=== PATIENT | female | born 1940 | race Caucasian/White ===

== ENCOUNTER → 2017-08-04 12:54 | Outpatient (CLI) | payer MEDICARE, OTHER, SELFPAY ==
--- NOTE | 2017-08-04 12:57 | DI.MG.S_ITS ---
BILATERAL DIGITAL DIAGNOSTIC MAMMOGRAM: 08/04/2017 CLINICAL: Skin keratosis bilateral. Family history of breast cancer. Comparison is made to exams dated: 06/08/2016, 12/31/2013, and 07/08/2011 [facility]. The tissue of both breasts is extremely dense, which lowers the sensitivity of mammography. No significant masses, calcifications, or other findings are seen in either breast. IMPRESSION: NEGATIVE There is no abnormality seen in either breast to correspond with the area of clinical concern, however, clinical followup is recommended. The vascular ultrasound technologist spoke with the patient who states the bilateral areas of concern are skin lesions. Please evaluate with direct clinical visualization. There is no mammographic evidence of malignancy. A 1 year screening mammogram is recommended. This exam was interpreted at Station ID: [id number]. NOTE: For mammograms, a report in lay terms will be sent to the patient. Approximately 15% of breast malignancies will not be visualized mammographically. In the management of a palpable breast mass, a negative mammogram must not discourage biopsy of a clinically suspicious lesion. Electronically Signed By: Germain Naqvi M.D. cj/:08/08/2017 13:32:53 Entry: - 08/08/2017 13:32:53 letter sent: Clinical Evaluation ACR BI-RADS Category 1: Negative [id number]
== END ==
PROVIDERS: Family Provider Family Medicine; PCP Family Medicine; Visit Provider Family Medicine
DX: R92.2 Inconclusive mammogram (principal); N63.10 Unspecified lump in the right breast, unspecified quadrant; N63.20 Unspecified lump in the left breast, unspecified quadrant; L57.0 Actinic keratosis; Z80.3 Family history of malignant neoplasm of breast
CPT/HCPCS: 77066; G0279

== ENCOUNTER → 2017-09-19 14:08 | Outpatient (CLI) | payer MEDICARE, OTHER, SELFPAY ==
--- NOTE | 2017-09-19 14:09 | DI.NM.S_ITS ---
PROCEDURE: NM GREYSON PERF SPECT REST & STR Rest and exercise myocardial perfusion SPECT with gated imaging and ejection fraction RADIOPHARMACEUTICAL: 24.7 mCi Tc-99m sestamibi IV at rest and 26.8 mCi Tc-99m sestamibi IV at peak exercise. A two day-protocol was performed. INDICATIONS: exertional dyspnea, renal failure TECHNIQUE: Radiopharmaceutical was injected at peak stress test, and also at rest. SPECT images were obtained. SPECT myocardial perfusion images were displayed in short axis, horizontal long axis, and vertical long axis views. Gated images were reviewed using [employer] software. COMPARISON: None. CARDIAC STRESS: A standard [place] treadmill exercise tolerance test was performed by the patient under the supervision of an attending staff. The patient exercised for 4 minutes and 17 seconds reaching 7.0 METs; functional aerobic impairment (BECKY) is +10%. Hemodynamic data: There is normal blood pressure and heart rate response to exercise stress. Patient achieved 85% of maximum predicted heart rate at peak exercise. Symptoms: Patient denied chest pain during exercise. EKG: Resting ECG shows sinus rhythm with non-specific ST-T changes in the anterior and anterolateral leads. No diagnostic EKG changes of ischemia; no ectopy. FINDINGS: Raw data: There is good myocardial labeling by radiotracer. No significant motion artifacts. Left ventricle function: Gated images demonstrate normal left ventricle wall thickening. No segmental wall motion abnormality. No transient ischemic dilation. The left ventricle resting end-diastolic volume is 65 mL. Left ventricle stress ejection fraction is 70%; normal values are above 45%. Myocardial perfusion: Fixed severe defect at the distal anterior wall extending to apex suggestive of prior non-transmural infarction as gated images show normal apical wall motion. The fixed defects persist on prone imaging. Summed stress score is 6 and summed rest score is 5. IMPRESSION: Abnormal nuclear stress test but low risk for ischemia. 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 No ischemia noted. Summed stress score is 6 and summed rest score is 5. 2) Normal left ventricular size, wall motion, and systolic function (post stress EF 70%). 3) No ECG evidence of ischemia with stress. Resting ECG shows sinus rhythm with non-specific ST-T changes in the anterior and anterolateral leads 4) No angina during the study 5) Good exercise tolerance (7.0 METs, BECKY -10%). Target heart reached (85% of maximum predicted heart rate reached. 6) No prior nuclear stress test available for comparison Dictated by: Teresa Mart MD on 09/20/2017 at 13:08 Approved by: Teresa Mart MD on 09/20/2017 at 13:17
--- NOTE | 2017-09-19 15:25 | P.PCN_ITS ---
Cardiac Stress Test Report Referral & Results Date Patient Seen: 09/19/17 Time Patient Seen: 15:23 Requesting provider: Rosa Maria Fermin Indication: Dyspnea Rest ECG: Unremarkable Procedure Note: Today following both written and verbal informed consent the patient was exercised according to a standard [place]ordo protocol patient went for a total of for minutes 17 sec achieving a maximum heart rate of 99 (computer reported maximum was in air due to technical defect) maximum systolic blood pressure of 132. This is approximately 7.0 METS. Exercise was terminated at this point because of inability the patient to continue. Patient was also given Cardiolite through a previously started Hep-Lock IV by the nuclear process engineer approximately 1 minute prior to the cessation of exercise. Patient failed to me heart rate and/or heart rate/blood pressure targets. In recovery she developed inferred T-wave in leads V5 and V6 as well as maybe some reciprocal ST segment changes in inferior leads. There was minor ST segment drooping or depression in leads V5 and V6 as well. This was all asymptomatic and recovered within 2 min of recovery Functional aerobic impairment rated-15% on the sedentary scale or better than average Impression: No clear evidence of ischemia. Above ST segment changes of certainly suspicious but not diagnostic of same. Await perfusion imaging which will be reported separately. Given inability of patient to reach heart rate and /or blood pressure targets depending on results of perfusion imaging may need repeat evaluation with Lexiscan to be more confluent of a negative result. Clinical correlation suggested. Please note: Actual ECG tracings can be found in the PACS system.
== END ==
PROVIDERS: Family Provider Family Medicine; PCP Family Medicine; Visit Provider Family Medicine
DX: R06.09 Other forms of dyspnea (principal); N19 Unspecified kidney failure
CPT/HCPCS: 78452; 93016; 93017; 93018; A9502

== ENCOUNTER → 2017-10-10 13:45 | Outpatient (CLI) | payer MEDICARE, OTHER, SELFPAY ==
--- NOTE | 2017-10-10 | DI.ECHO.S_ITS ---
[place] [facility]---------+ [facility] +---------+ : : [address] : : : : [id number] : : : : Phone: [phone] Echocardiogram Report + + :Name: KIRTI EDWARDS Study Date: 10/10/2017 Height: 61 in : :[facility] Weight: 108 lb : : Gender: Female BSA: 1.5 m2 : :: 1940 Age: 77 yrs BP: 100/58 mmHg: :Reason For Study: Dyspnea : :Ordering Physician: Evette Miller : :Karen Performed By: Yoselin Patel : :Referring: Rosa Maria Fermin : + + Interpretation Summary 1. Normal left ventricular size, wall thickness and systolic function with wall motion abnormalities as noted. EF is estimated at 60-65% 2. Normal right ventricular size with grossly normal systolic function. Unable to estimate RVSP. The estimated right atrial pressure is low. 3. No evidence for significant valvular pathology There is no old study available for review Procedure: A two-dimensional transthoracic echocardiogram with color flow and Doppler was performed. The study quality was technically adequate. Comparison is made with the echocardiogram of 07-03-15. The patient was in normal sinus rhythm during the exam. Left Ventricle: The left ventricle is normal in size. There is normal left ventricular wall thickness. The ejection fraction is estimated to be 60-65%. Hypokinesis of the apical septal segments and the apical anterior wall. Diastolic function could not be accurately assessed due to unobtainable data. Right Ventricle: The right ventricle is normal size. Grossly normal systolic function. Atria: The left atrial size is normal. Right atrial size is normal. No color doppler evidence for an ASD. Mitral Valve: The mitral valve leaflets appear borderline thickened, but open well. There is trace mitral regurgitation. Aortic Valve: The aortic valve opens well. No doppler evidence for aortic stenosis. There is trace aortic regurgitation. Tricuspid Valve: The tricuspid valve leaflets are thin and pliable. No tricuspid regurgitation. Pulmonic Valve: The pulmonic valve is not well seen, but is grossly normal. There is mild pulmonic regurgitation. Great Vessels: The aortic root is normal size. The dimensions of the ascending aorta are normal. The IVC is of normal diameter and collapses greater than 50% with a sniff. This suggests a low right atrial pressure of 3 mm Hg. Pericardium/ Pleura There is no pericardial effusion. There is no pleural effusion. MMode/2D Measurements & Calculations LVIDd: 4.4 cm Ao root diam: 3.3 cm LVIDs: 2.5 cm Aortic Jxn: 2.4 cm FS: 42.6 % asc Aorta Diam: 3.0 cm EPSS: 0.88 cm Ao Arch Diam (Prox Trans): 2.7 cm IVSd: 1.1 cm LVPWd: 0.79 cm LV ge. diameter/BSA (cm/m^2): 3.0 LV sys. diameter/BSA (cm/m^2): 1.7 LA dimension: 3.3 cm RA long axis: 3.7 cm LA A2 area: 14.1 cm2 RA area: 10.0 cm2 LA A4 area: 16.2 cm2 RA vol: 22.9 ml LA length (vol): 4.6 cm RA : 15.8 ml/m2 LA vol: 42.8 ml IVC diam: 1.0 cm LA vol index: 29.4 ml/m2 RVDd major: 4.6 cm RVD1 (basal): 2.5 cm RVD2 (mid): 2.1 cm Doppler Measurements & Calculations Ao V2 max: 104.6 cm/sec MV E max dionicio: 80.2 cm/sec Ao V2 mean: 69.2 cm/sec MV A max dionicio: 99.6 cm/sec Ao max P.4 mmHg MV E/A: 0.81 Ao mean P.3 mmHg Med Peak E' Dionicio: 3.6 cm/sec Ao V2 VTI: 23.4 cm E/E' med: 22.4 Lat Peak E' Dionicio: 5.3 cm/sec E/E' lat: 15.2 E/e' average: 18.8 MV dec time: 0.18 sec MV P1/2t: 52.6 msec PA V2 max: 83.0 cm/sec MV P1/2t max dionicio: 78.9 cm/sec PA V2 mean: 53.2 cm/sec MVA(P1/2t): 4.2 cm2 PA mean P.4 mmHg PA Accel Time: 0.17 sec Reading Physician:PM
== END ==
PROVIDERS: Family Provider Family Medicine; PCP Family Medicine; Visit Provider Internal Medicine
DX: R06.09 Other forms of dyspnea (principal)
CPT/HCPCS: 93306

== ENCOUNTER → 2017-10-11 11:44 | Outpatient (CLI) | payer MEDICARE, OTHER, SELFPAY ==
--- NOTE | 2017-10-14 17:49 | PM.PFT.1 ---
Pulmonary Function Test Referral & Results Date Patient Seen: 10/11/17 Requesting provider: Lachelle Jones Results: The spirometry demonstrates an FVC of 2.47 L which is 106% of predicted. The FEV1 was measured at 1.92 L which is 112% of predicted. The FEV1/FVC ratio was 78 which is 105% of predicted. Following the administration of bronchodilator there was no appreciable change in above normal numbers. Lung volumes show an SVC of 2.55 L which is 106% of predicted. The diffusing capacity was measured at 13.4 for which is 66% of predicted. No hemoglobin value was provided, so no correction for potential anemia could be made, if appropriate. The maximum voluntary ventilation was reduced. Interpretation: This study demonstrates normal spirometry and reduced diffusing capacity. Compared to PFTs performed in June 2015, there has been a reduction in diffusing capacity which was previously at 15.95 or 70% of predicted currently only 66% of predicted. Clinical correlation suggested.
== END ==
PROVIDERS: PCP Family Medicine; Visit Provider Internal Medicine
DX: R06.02 Shortness of breath (principal)
CPT/HCPCS: 94010; 94060; 94726; 94729

== ENCOUNTER → 2017-12-26 10:17 | Outpatient (CLI) | payer MEDICARE, OTHER, SELFPAY ==
[2017-12-26 12:17] LABS: BUN Creatinine Ratio 12.4 (6-22); Blood Urea Nitrogen 26 mg/dL (7-17); Calcium 9.3 mg/dL (8.4-10.2); Carbon Dioxide 25 mmol/L (22-32); Chloride 113 mmol/L (98-107); Estimated Glomerular Filt Rate 22.8 mL/min (>60); Glucose 79 mg/dL (80-110); HEMOLYSIS < 15 (0-50); Potassium 4.9 mmol/L (3.4-5.1); Sodium 147 mmol/L (137-145)
== END ==
PROVIDERS: PCP Internal Medicine; Visit Provider Internal Medicine Nephrology
DX: N05.9 Unspecified nephritic syndrome with unspecified morphologic changes (principal)
CPT/HCPCS: 36415; 80048

== ENCOUNTER → 2018-01-30 08:59 | Outpatient (CLI) | payer MEDICARE, OTHER, SELFPAY ==
[2018-01-30 11:24] LABS: BUN Creatinine Ratio 13.6 (6-22); Blood Urea Nitrogen 34 mg/dL (7-17); Calcium 9.3 mg/dL (8.4-10.2); Carbon Dioxide 26 mmol/L (22-32); Chloride 110 mmol/L (98-107); Estimated Glomerular Filt Rate 18.6 mL/min (>60); Glucose 88 mg/dL (80-110); HEMOLYSIS < 15 (0-50); Potassium 4.5 mmol/L (3.4-5.1); Sodium 148 mmol/L (137-145)
== END ==
PROVIDERS: PCP Internal Medicine; Visit Provider Internal Medicine Nephrology
DX: N05.9 Unspecified nephritic syndrome with unspecified morphologic changes (principal); I50.32 Chronic diastolic (congestive) heart failure
CPT/HCPCS: 36415; 80048; 83880

== ENCOUNTER → 2018-04-03 10:34 | Outpatient (CLI) | payer MEDICARE, OTHER, SELFPAY ==
[2018-04-03 11:20] LABS: Add Manual Diff / Slide Review NO; Basophils Absolute Auto 0 /uL (0-100); Basophils Percent Auto 0.6 % (0-2); Eosinophils Absolute Auto 200 /uL (0-450); Eosinophils Percent Auto 4.7 % (2-4); Hematocrit 35.7 % (36-46); Hemoglobin 11.9 g/dL (12.0-16.0); Lymphocytes Absolute Auto 1000 /uL (1100-4500); Lymphocytes Percent Auto 25.3 % (25-40); Mean Corpuscular HGB Conc 33.4 % (30-36); Mean Corpuscular Hemoglobin 33.8 PG (26-34); Monocytes Absolute Auto 400 /uL (0-900); Monocytes Percent Auto 10.6 % (3-14); Neutrophils Absolute Auto 2300 /uL (1500-7000); Neutrophils Percent Auto 58.8 % (50-75); Platelet Count 232 X10^3/uL (150-400); Red Blood Cell Count 3.54 X10^6/uL (4.0-5.2); Red Cell Distribution Width 13.2 % (11.6-14.8); White Blood Cell Count 3.9 X10^3/uL (4.5-11.0)
[2018-04-03 11:41] LABS: BUN Creatinine Ratio 12.4 (6-22); Blood Urea Nitrogen 31 mg/dL (7-17); Calcium 9.3 mg/dL (8.4-10.2); Carbon Dioxide 26 mmol/L (22-32); Chloride 108 mmol/L (98-107); Estimated Glomerular Filt Rate 18.6 mL/min (>60); Glucose 58 mg/dL (80-110); HEMOLYSIS < 15 (0-50); Phosphorous 4.9 mg/dL (2.8-4.1); Potassium 4.7 mmol/L (3.4-5.1); Sodium 144 mmol/L (137-145)
[2018-04-03 14:29] LABS: B Type Natriuretic Peptide 154 (<100)
[2018-04-05 15:39] LABS: Parathyroid Hormone Int 79 pg/mL (14-64)
== END ==
PROVIDERS: PCP Family Medicine; Visit Provider Internal Medicine Nephrology
DX: N05.9 Unspecified nephritic syndrome with unspecified morphologic changes (principal); I50.32 Chronic diastolic (congestive) heart failure; D70.9 Neutropenia, unspecified; D63.1 Anemia in chronic kidney disease; E83.30 Disorder of phosphorus metabolism, unspecified; N25.81 Secondary hyperparathyroidism of renal origin
CPT/HCPCS: 36415; 80048; 83880; 83970; 84100; 85025

== ENCOUNTER → 2018-04-19 14:45 | Outpatient (CLI) | payer MEDICARE, OTHER, SELFPAY ==
[2018-04-19 16:33] LABS: Adenovirus F 40/41 Not Detected (Not Detect); Astrovirus Not Detected (Not Detect); Campylobacter Not Detected (Not Detect); Clostridium difficile toxin AB Detected (Not Detect); Cryptosporidium Not Detected (Not Detect); Cyclospora cayetanensis Not Detected (Not Detect); Entamoeba histolytica Not Detected (Not Detect); Enteroaggregative E.coli Not Detected (Not Detect); Enteropathogenic E.coli Not Detected (Not Detect); Enterotoxigenic E.coli It/st Not Detected (Not Detect); Giardia lamblia Not Detected (Not Detect); Norovirus GI/GII Not Detected (Not Detect); Plesiomonsa shigelloides Not Detected (Not Detect); Rotavirus A Not Detected (Not Detect); Salmonella Not Detected (Not Detect); Shiga-like toxin-prod E.coli Not Detected (Not Detect); Shigella/Enteroinvasive E.coli Not Detected (Not Detect); Vibrio Not Detected (Not Detect); Vibrio cholerae Not Detected (Not Detect); Yersinia enterocolitica Not Detected (Not Detect)
== END ==
PROVIDERS: PCP Family Medicine
DX: R19.7 Diarrhea, unspecified (principal)
CPT/HCPCS: 87507

== ENCOUNTER → 2018-06-14 12:14 | Outpatient (CLI) | payer MEDICARE, OTHER, SELFPAY ==
[2018-06-14 14:56] LABS: Clostridium Difficile Tox PCR Positive for C. diff
== END ==
PROVIDERS: PCP Family Medicine; Visit Provider Physician Assistant
DX: R19.7 Diarrhea, unspecified (principal)
CPT/HCPCS: 87493

== ENCOUNTER → 2018-06-26 09:22 | Outpatient (CLI) | payer MEDICARE, OTHER, SELFPAY ==
[2018-06-26 10:38] LABS: Blood Urea Nitrogen 30 mg/dL (7-17); Calcium 9.1 mg/dL (8.4-10.2); Carbon Dioxide 26 mmol/L (22-32); Chloride 107 mmol/L (98-107); Estimated Glomerular Filt Rate 20.5 mL/min (>60); Glucose 85 mg/dL (80-110); HEMOLYSIS < 15 (0-50); Potassium 4.8 mmol/L (3.4-5.1); Sodium 143 mmol/L (137-145)
[2018-06-26 12:02] LABS: Sodium Urine Random 35 mmol/L (30-90)
== END ==
PROVIDERS: PCP Family Medicine; Visit Provider Internal Medicine Nephrology
DX: N05.9 Unspecified nephritic syndrome with unspecified morphologic changes (principal); E87.1 Hypo-osmolality and hyponatremia
CPT/HCPCS: 36415; 80048; 84300

== ENCOUNTER → 2018-06-28 15:10 | Outpatient (CLI) | payer MEDICARE, OTHER, SELFPAY ==
[2018-06-28 20:01] LABS: Clostridium Difficile Tox PCR Negative for C. diff
== END ==
PROVIDERS: PCP Family Medicine; Visit Provider Physician Assistant
DX: R19.7 Diarrhea, unspecified (principal); A04.72 Enterocolitis due to Clostridium difficile, not specified as recurrent
CPT/HCPCS: 87493

== ENCOUNTER → 2018-07-08 08:20 | Outpatient (CLI) | payer MEDICARE, OTHER, SELFPAY ==
[2018-07-08 10:55] LABS: BUN Creatinine Ratio 16.2 (6-22); Blood Urea Nitrogen 47 mg/dL (7-17); Calcium 9.9 mg/dL (8.4-10.2); Carbon Dioxide 26 mmol/L (22-32); Chloride 103 mmol/L (98-107); Estimated Glomerular Filt Rate 15.7 mL/min (>60); Glucose 92 mg/dL (80-110); HEMOLYSIS < 15 (0-50); Potassium 4.8 mmol/L (3.4-5.1); Sodium 143 mmol/L (137-145)
[2018-07-08 11:05] LABS: B Type Natriuretic Peptide 165 (<100)
== END ==
PROVIDERS: PCP Family Medicine; Visit Provider Internal Medicine Nephrology
DX: N05.9 Unspecified nephritic syndrome with unspecified morphologic changes (principal); I50.32 Chronic diastolic (congestive) heart failure
CPT/HCPCS: 36415; 80048; 83880

== ENCOUNTER → 2018-07-18 11:21 | Outpatient (CLI) | payer MEDICARE, OTHER, SELFPAY ==
--- NOTE | 2018-07-18 11:26 | DI.RAD.S_ITS ---
PROCEDURE: XR CHEST 2V INDICATIONS: Shortness of breath TECHNIQUE: 2 views of the chest were acquired. COMPARISON: [facility], CR, CHEST 2 VIEW, 06/18/2015, 15:59. [facility], CT, CT CHEST HIGH RESOLUTION WO CONTRAST, 01/06/2016, 1:35 PM. [facility], , CHEST 2 VIEW, 10/31/2015, 13:55. FINDINGS: Surgical changes and devices: None. Lungs and pleura: Hyperinflation consistent with COPD. There is a left diaphragmatic eventration, which appears unchanged. No pleural effusions or pneumothorax. Mediastinum: Mediastinal contours are normal. Heart size is normal. Bones and chest wall: No suspicious bony abnormalities. Soft tissues appear unremarkable. IMPRESSION: 1. Hyperinflation consistent with COPD. 2. Stable left diaphragmatic hernia. Dictated by: Dean Sen M.D. on 07/18/2018 at 13:01 Approved by: Dean Sen M.D. on 07/18/2018 at 13:09
[2018-07-18 12:16] LABS: Add Manual Diff / Slide Review NO; Basophils Absolute Auto 0 /uL (0-100); Basophils Percent Auto 0.6 % (0-2); Eosinophils Absolute Auto 100 /uL (0-450); Eosinophils Percent Auto 2.6 % (2-4); Hematocrit 39.1 % (36-46); Hemoglobin 13.2 g/dL (12.0-16.0); Lymphocytes Absolute Auto 1400 /uL (1100-4500); Lymphocytes Percent Auto 30.7 % (25-40); Mean Corpuscular HGB Conc 33.8 % (30-36); Mean Corpuscular Hemoglobin 33.3 PG (26-34); Mean Corpuscular Volume 98.3 fL (80-100); Monocytes Absolute Auto 500 /uL (0-900); Neutrophils Absolute Auto 2400 /uL (1500-7000); Neutrophils Percent Auto 54.1 % (50-75); Platelet Count 297 X10^3/uL (150-400); Red Blood Cell Count 3.98 X10^6/uL (4.0-5.2); Red Cell Distribution Width 12.8 % (11.6-14.8); White Blood Cell Count 4.4 X10^3/uL (4.5-11.0)
[2018-07-18 12:29] LABS: Alanine Aminotransferase 34 IU/L (9-52); Albumin Globulin Ratio 1.4 (1.0-2.8); Alkaline Phosphatase 106 U/L (38-126); Aspartate Aminotransferase 48 IU/L (14-36); BUN Creatinine Ratio 19.7 (6-22); Bilirubin Total 0.4 mg/dL (0.2-1.3); Blood Urea Nitrogen 71 mg/dL (7-17); Calcium 10.2 mg/dL (8.4-10.2); Carbon Dioxide 28 mmol/L (22-32); Chloride 95 mmol/L (98-107); Estimated Glomerular Filt Rate 12.2 mL/min (>60); Globulin 3.5 g/dL (1.7-4.1); Glucose 99 mg/dL (80-110); HEMOLYSIS < 15 (0-50); Sodium 140 mmol/L (137-145); Total Protein 8.5 g/dL (6.3-8.2)
[2018-07-18 12:36] LABS: B Type Natriuretic Peptide 189 (<100)
== END ==
PROVIDERS: PCP Family Medicine; Visit Provider Family Medicine
DX: R06.02 Shortness of breath (principal); N18.4 Chronic kidney disease, stage 4 (severe); N25.89 Other disorders resulting from impaired renal tubular function; R42 Dizziness and giddiness
CPT/HCPCS: 36415; 71046; 80053; 83880; 85025

== ENCOUNTER → 2018-08-07 09:19 | Outpatient (CLI) | payer MEDICARE, OTHER, SELFPAY ==
[2018-08-07 10:32] LABS: Add Manual Diff / Slide Review NO; Basophils Absolute Auto 0 /uL (0-100); Eosinophils Absolute Auto 200 /uL (0-450); Eosinophils Percent Auto 5.1 % (2-4); Hemoglobin 12.1 g/dL (12.0-16.0); Lymphocytes Absolute Auto 1100 /uL (1100-4500); Lymphocytes Percent Auto 31.9 % (25-40); Mean Corpuscular HGB Conc 33.6 % (30-36); Mean Corpuscular Hemoglobin 33.4 PG (26-34); Mean Corpuscular Volume 99.3 fL (80-100); Monocytes Absolute Auto 400 /uL (0-900); Neutrophils Absolute Auto 1800 /uL (1500-7000); Platelet Count 265 X10^3/uL (150-400); Red Blood Cell Count 3.62 X10^6/uL (4.0-5.2); Red Cell Distribution Width 13.4 % (11.6-14.8); White Blood Cell Count 3.4 X10^3/uL (4.5-11.0)
[2018-08-07 10:55] LABS: B Type Natriuretic Peptide 184 (<100)
[2018-08-07 10:56] LABS: BUN Creatinine Ratio 18.1 (6-22); Blood Urea Nitrogen 38 mg/dL (7-17); Calcium 9.5 mg/dL (8.4-10.2); Carbon Dioxide 21 mmol/L (22-32); Chloride 109 mmol/L (98-107); Estimated Glomerular Filt Rate 22.7 mL/min (>60); Glucose 83 mg/dL (80-110); HEMOLYSIS < 15 (0-50); Potassium 4.5 mmol/L (3.4-5.1); Sodium 141 mmol/L (137-145)
== END ==
PROVIDERS: PCP Family Medicine; Visit Provider Internal Medicine Nephrology
DX: N05.9 Unspecified nephritic syndrome with unspecified morphologic changes (principal); I50.32 Chronic diastolic (congestive) heart failure; D70.9 Neutropenia, unspecified; D63.1 Anemia in chronic kidney disease
CPT/HCPCS: 36415; 80048; 83880; 85025

== ENCOUNTER → 2018-09-05 11:11 | Outpatient (CLI) | payer MEDICARE, OTHER, SELFPAY ==
[2018-09-05 12:05] LABS: Add Manual Diff / Slide Review NO; Basophils Absolute Auto 0 /uL (0-100); Basophils Percent Auto 0.4 % (0-2); Eosinophils Absolute Auto 100 /uL (0-450); Eosinophils Percent Auto 3.1 % (2-4); Hematocrit 34.9 % (36-46); Hemoglobin 11.6 g/dL (12.0-16.0); Lymphocytes Absolute Auto 1000 /uL (1100-4500); Lymphocytes Percent Auto 26.1 % (25-40); Mean Corpuscular HGB Conc 33.3 % (30-36); Mean Corpuscular Hemoglobin 33.4 PG (26-34); Mean Corpuscular Volume 100.3 fL (80-100); Monocytes Absolute Auto 300 /uL (0-900); Monocytes Percent Auto 8.5 % (3-14); Neutrophils Absolute Auto 2300 /uL (1500-7000); Neutrophils Percent Auto 61.9 % (50-75); Platelet Count 225 X10^3/uL (150-400); Red Blood Cell Count 3.48 X10^6/uL (4.0-5.2); Red Cell Distribution Width 13.7 % (11.6-14.8); White Blood Cell Count 3.7 X10^3/uL (4.5-11.0)
[2018-09-05 12:31] LABS: BUN Creatinine Ratio 13.8 (6-22); Blood Urea Nitrogen 29 mg/dL (7-17); Calcium 9.3 mg/dL (8.4-10.2); Carbon Dioxide 21 mmol/L (22-32); Chloride 114 mmol/L (98-107); Estimated Glomerular Filt Rate 22.7 mL/min (>60); Glucose 85 mg/dL (80-110); HEMOLYSIS < 15 (0-50); Potassium 4.6 mmol/L (3.4-5.1); Sodium 143 mmol/L (137-145)
== END ==
PROVIDERS: PCP Family Medicine; Visit Provider Internal Medicine Nephrology
DX: N05.9 Unspecified nephritic syndrome with unspecified morphologic changes (principal); D70.9 Neutropenia, unspecified; D63.1 Anemia in chronic kidney disease
CPT/HCPCS: 36415; 80048; 85025

== ENCOUNTER → 2018-10-05 09:03 | Outpatient (CLI) | payer MEDICARE, OTHER, SELFPAY ==
[2018-10-05 09:32] LABS: Add Manual Diff / Slide Review NO; Basophils Absolute Auto 0 /uL (0-100); Basophils Percent Auto 0.9 % (0-2); Eosinophils Absolute Auto 200 /uL (0-450); Eosinophils Percent Auto 6.1 % (2-4); Hematocrit 36.1 % (36-46); Hemoglobin 11.9 g/dL (12.0-16.0); Lymphocytes Absolute Auto 1300 /uL (1100-4500); Lymphocytes Percent Auto 32.4 % (25-40); Mean Corpuscular Hemoglobin 33.4 PG (26-34); Mean Corpuscular Volume 101.2 fL (80-100); Monocytes Absolute Auto 400 /uL (0-900); Monocytes Percent Auto 10.5 % (3-14); Neutrophils Absolute Auto 2000 /uL (1500-7000); Neutrophils Percent Auto 50.1 % (50-75); Platelet Count 226 X10^3/uL (150-400); Red Blood Cell Count 3.56 X10^6/uL (4.0-5.2); Red Cell Distribution Width 13.6 % (11.6-14.8); White Blood Cell Count 3.9 X10^3/uL (4.5-11.0)
[2018-10-05 10:10] LABS: BUN Creatinine Ratio 15.6 (6-22); Blood Urea Nitrogen 28 mg/dL (7-17); Calcium 9.2 mg/dL (8.4-10.2); Carbon Dioxide 21 mmol/L (22-32); Chloride 114 mmol/L (98-107); Estimated Glomerular Filt Rate 27.1 mL/min (>60); Glucose 91 mg/dL (80-110); HEMOLYSIS < 15 (0-50); Potassium 4.8 mmol/L (3.4-5.1); Sodium 141 mmol/L (137-145)
== END ==
PROVIDERS: PCP Family Medicine; Visit Provider Internal Medicine Nephrology
DX: N05.9 Unspecified nephritic syndrome with unspecified morphologic changes (principal); D70.9 Neutropenia, unspecified; D63.1 Anemia in chronic kidney disease
CPT/HCPCS: 36415; 80048; 85025

== ENCOUNTER → 2018-10-27 11:12 | Outpatient (CLI) | payer MEDICARE, OTHER, SELFPAY ==
[2018-10-27 11:58] LABS: Add Manual Diff / Slide Review NO; Basophils Absolute Auto 0 /uL (0-100); Basophils Percent Auto 0.9 % (0-2); Eosinophils Absolute Auto 200 /uL (0-450); Eosinophils Percent Auto 3.7 % (2-4); Hematocrit 36.1 % (36-46); Hemoglobin 12.2 g/dL (12.0-16.0); Lymphocytes Absolute Auto 1100 /uL (1100-4500); Lymphocytes Percent Auto 27.2 % (25-40); Mean Corpuscular HGB Conc 33.8 % (30-36); Mean Corpuscular Hemoglobin 33.6 PG (26-34); Mean Corpuscular Volume 99.7 fL (80-100); Monocytes Absolute Auto 400 /uL (0-900); Monocytes Percent Auto 10.4 % (3-14); Neutrophils Absolute Auto 2400 /uL (1500-7000); Neutrophils Percent Auto 57.8 % (50-75); Platelet Count 228 X10^3/uL (150-400); Red Blood Cell Count 3.62 X10^6/uL (4.0-5.2); Red Cell Distribution Width 13.5 % (11.6-14.8); White Blood Cell Count 4.2 X10^3/uL (4.5-11.0)
[2018-10-27 12:13] LABS: BUN Creatinine Ratio 22.1 (6-22); Blood Urea Nitrogen 42 mg/dL (7-17); Calcium 9.7 mg/dL (8.4-10.2); Carbon Dioxide 23 mmol/L (22-32); Chloride 112 mmol/L (98-107); Estimated Glomerular Filt Rate 25.5 mL/min (>60); Glucose 88 mg/dL (80-110); HEMOLYSIS < 15 (0-50); Potassium 4.9 mmol/L (3.4-5.1); Sodium 145 mmol/L (137-145)
== END ==
PROVIDERS: Family Provider Family Medicine; PCP Family Medicine; Visit Provider Internal Medicine Nephrology
DX: N05.9 Unspecified nephritic syndrome with unspecified morphologic changes (principal); D70.9 Neutropenia, unspecified; D63.1 Anemia in chronic kidney disease
CPT/HCPCS: 36415; 80048; 85025

== ENCOUNTER → 2018-11-03 08:04 | Outpatient (CLI) | payer MEDICARE, OTHER, SELFPAY ==
[2018-11-03 08:57] LABS: Cholesterol 218 mg/dL (140-199); HDL Cholesterol 54 mg/dL (40-60); LDL Cholesterol Calculated 143 mg/dL (<100); Triglycerides 105 mg/dL (35-150)
== END ==
PROVIDERS: Family Provider Family Medicine; PCP Family Medicine; Visit Provider Internal Medicine
DX: I25.2 Old myocardial infarction (principal)
CPT/HCPCS: 36415; 80061

== ENCOUNTER → 2018-11-17 13:36 | Outpatient (CLI) | payer MEDICARE, OTHER, SELFPAY ==
[2018-11-17 15:05] LABS: Clostridium Difficile Tox PCR Positive for C. diff
== END ==
PROVIDERS: PCP Family Medicine; Visit Provider Family Medicine
DX: R19.7 Diarrhea, unspecified (principal)
CPT/HCPCS: 87493

== ENCOUNTER 2018-11-24 05:34 | Observation (INO) | payer MEDICARE, OTHER, SELFPAY ==
[2018-11-24] VITALS (7 sets, daily range): BP systolic 101–120; BP diastolic 48–61; PULSE 68–90; RESP 15–20; TEMP 36.3–36.6; O2SAT 93–100; BMI 20.2
--- NOTE | 2018-11-24 05:40 | DI.RAD.S_ITS ---
PROCEDURE: XR PELVIS 1-2V INDICATIONS: fall with hip pain TECHNIQUE: 2 view(s) of the pelvis acquired. COMPARISON: [facility], , PELVIS WITH BILATERAL HIPS, 06/08/2014, 11:31. FINDINGS: Bones: There is linear lucency through the left inferior pubic ramus and linear sclerosis, possibly representing a nondisplaced fracture. Degenerative changes of the bilateral hip joints. Remainder of the osseous structures appear intact the radiographic evaluation. No suspicious intraosseous lesions. Lower lumbar spondylosis. Symmetric alignment of the bilateral sacroiliac joints. No pubic symphysis diastases. Soft tissues: Visualized bowel gas pattern is normal. No suspicious soft tissue calcifications. IMPRESSION: Possible nondisplaced left inferior pubic ramus fracture. No definite femur fracture is identified. Recommend further characterization with CT/MRI to confirm/evaluate. Dictated by: Grupo Cisneros M.D. on 11/24/2018 at 8:36 Approved by: Grupo Cisneros M.D. on 11/24/2018 at 8:40
--- NOTE | 2018-11-24 05:44 | ED.FALL ---
HPI - Fall General Chief Complaint: Extremity Injury, Lower Stated Complaint: GLF Time Seen by Provider: 11/24/18 05:34 Source: patient and EMS Mode of arrival: EMS Limitations: no limitations History of Present Illness HPI Narrative: 78-year-old female smoker with extensive medical history including end-stage renal disease and COPD presents with a chief complaint of a mechanical fall in which she fell onto her left hip suffering pain. Her pain is worse with motion and improves with rest. She denies numbness, tingling or weakness. There is no obvious deformity such as shortening or external rotation. She denies other injuries such as head, neck or back pain. She denies any definite prodromal symptoms. Last week she was re-diagnosed with C diff. Her PCP is Dr. Billingsley and she was set to have an appointment to discuss the plan later today MD complaint: fall Onset (ago): minute(s) Fall from: standing Fall witnessed: no Place fall occurred: home Loss of consciousness: none Prolonged down time: no Symptoms prior to fall: none Context: tripped/slipped Severity: moderate Quality: aching Associated symptoms (after fall): unable to walk Related Data Home Medications Medication Instructions Recorded Confirmed omega-3 fatty acids 1,000 mg 1,000 mg PO DAILY 11/18/17 11/24/18 capsule Respironics [employer] Auto CPAP #1 ea 04/21/18 11/24/18 acetaminophen 500 mg tablet 500 mg PO QID PRN 07/18/18 11/24/18 albuterol sulfate 90 mcg/actuation 1 puff INHALATION Q6H PRN 07/18/18 11/24/18 aerosol inhaler aspirin 81 mg tablet,delayed 81 mg PO DAILY 07/18/18 11/24/18 release psyllium husk 0.52 gram capsule 0.52 gram PO DAILY 07/18/18 11/24/18 furosemide 20 mg tablet 20 mg PO DAILY tab 07/26/18 11/24/18 atorvastatin 40 mg PO DAILY 11/24/18 11/24/18 hydroxychloroquine 200 mg PO BEDTIME 11/24/18 11/24/18 lorazepam 0.5 mg PO BEDTIME 11/24/18 11/24/18 sertraline 200 mg PO BEDTIME 11/24/18 11/24/18 Allergies Allergy/AdvReac Type Severity Reaction Status Date / Time Penicillins [PENICILLINS] Allergy Severe hives Verified 11/24/18 06:39 Sulfa (Sulfonamide Allergy Severe hives Verified 11/24/18 06:39 Antibiotics) [SULFA (SULFONAMIDE ANTIBIOTICS)] codeine [CODEINE] AdvReac Mild difficulty Verified 11/24/18 06:39 sleeping Review of Systems Constitutional Constitutional: Denies chills, Denies fatigue, Denies fever(s), Denies frequent falls, Denies lethargy and Denies weakness Eyes Eyes: Denies change in vision, Denies eye discharge, Denies irritation and Denies loss of vision ENT Ears, Nose, Mouth, and Throat: Denies change in voice, Denies dizziness, Denies neck pain, Denies sore throat and Denies throat swelling Cardiovascular Cardiovascular: Denies chest pain, Denies irregular heart rhythm, Denies lightheadedness, Denies palpitations, Denies dyspnea, Denies dyspnea on exertion and Denies orthopnea Respiratory Respiratory: Denies cough, Denies dyspnea, Denies dyspnea on exertion and Denies wheezing Gastrointestinal Gastrointestinal: Denies abdominal pain, Denies change in bowel habits, Denies diarrhea, Denies nausea and Denies vomiting Genitourinary Genitourinary: Denies hematuria, Denies flank pain, Denies urinary incontinence and Denies urinary urgency Musculoskeletal Musculoskeletal: Denies back pain, Reports limited range of motion, Denies muscle weakness, Denies neck pain, Denies numbness and Denies tingling Integumentary/Breasts Skin/Breast: Denies pruritus, Denies erythema, Denies rash and Denies wounds Neurologic Neurologic: Denies behavioral changes, Denies confusion, Denies dizziness, Denies frequent falls, Denies loss of vision, Denies numbness, Denies tingling and Denies weakness Psychiatric Psychiatric: Denies anxiety, Denies behavioral changes, Denies confusion, Denies depression, Denies homicidal ideation and Denies suicidal ideation Endocrine Endocrine: Denies fatigue, Denies flushing and Denies palpitations Hematologic/Lymphatic Hematologic/Lymphatic: Denies easy bruising Allergic/Immunologic Allergic/Immunologic: Denies urticaria, Denies throat swelling and Denies wheezing Exam Narrative Exam Narrative: GENERAL: [78] year old patient appears older than stated age. Chronically ill, thin and malnourished. Obviously in pain HEAD: Atraumatic. Normocephalic. EYES: Pupils equal round and reactive. Extraocular motions intact. No scleral icterus. No injection or drainage. ENT: Nose without bleeding, purulent drainage. Throat without erythema, tonsillar hypertrophy or exudate. Airway patent. NECK: Trachea midline. Non tender CARDIOVASCULAR: Regular rate and rhythm without murmurs, gallops, or rubs. RESPIRATORY: Clear to auscultation. Breath sounds equal bilaterally. No wheezes, rales, or rhonchi. GASTROINTESTINAL: Abdomen soft, non-tender, nondistended. EXTREMITIES: No edema or joint tenderness. No shortening or external rotation. Tender to palpation but surprisingly good range of motion and little pain with axial loading BACK: Nontender without deformity or crepitance. No flank tenderness. NEURO: AOx3. SKIN: No rash or erythema of visible areas Initial Vital Signs Initial Vital Signs: Vital Signs Pulse Rate 72 11/24/18 05:46 Respiratory Rate 18 11/24/18 05:46 Blood Pressure 111/60 11/24/18 05:46 Pulse Oximetry 98 11/24/18 05:46 [facility] Medical History Allergic rhinitis, cause unspecified (Chronic 05/18/04) Anemia, unspecified (Chronic 04/20/04) Anxiety (Chronic) Arthralgia (Chronic 07/22/04) CAD (coronary artery disease) (Chronic) Chronic sinusitis, unspecified (Chronic 05/27/04) Depression (Chronic) Dry eye syndrome (Chronic 08/12/04) Fibromyalgia affecting multiple sites (Chronic) History of renal stone (Resolved) Low ferritin level (Chronic 09/05/14) Osteopenia (Chronic 04/20/04) Raynauds syndrome (Chronic) Renal osteodystrophy (Chronic) Renal tubular acidosis (Chronic) Restless leg syndrome (Chronic) Sjoegren syndrome (Chronic) Sleep apnea (Chronic) Stage 4 chronic kidney disease (Chronic) TMJ dysfunction (Chronic) Surgical History History of cataract removal with insertion of prosthetic lens (Resolved 04/09/01) History of cataract removal with insertion of prosthetic lens (Resolved 09/07/06) History of kidney surgery (Resolved 1959) History of YAG laser capsulotomy of lens of right eye (Resolved 04/2005) Social History marital status: number of children: 2 household members: family lives independently: Yes caregiver/support person: No housing: house pets and animals: Yes education level: college occupational status: other 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 natasha/baptism: [employer]azdanism leisure activities: reading, volunteer work and other Smoking Status: Never smoker Tobacco: How many years used: 0 quit status: quit date established second hand exposure: Yes (Childhood and as young adult.) alcohol intake: never substance use type: does not use Course Orders Ordered: ED Orders 11/24/18 05:30 Basic Metabolic Panel Stat Complete Blood Count AUTO DIFF Stat 11/24/18 05:40 XR pelvis 1-2V Stat 11/24/18 05:48 CT pelvis wo con Stat Discontinued Medications Fentanyl (Sublimaze) 25 mcg IV NOW ONE Stop: 11/24/18 06:11 Last Admin: 11/24/18 06:16 Dose: 25 mcg Documented by: NEGRA Sodium Chloride (Normal Saline 0.9%) 500 mls @ 1,000 mls/hr IV BOLUS ONE Stop: 11/24/18 06:11 Last Admin: 11/24/18 05:57 Dose: 1,000 mls/hr Documented by: NEGRA Consultations Consultation #1: Discussed with Orthopedics whom have reviewed the images and state this is a nonsurgical injury and that patient can ambulate to toe-touch if able Consultation #2: Hospitalist happy to accept on his service Vital Signs Vital signs: Vital Signs - 8 hr 11/24/18 05:46 Pulse Rate 72 Respiratory Rate 18 Blood Pressure 111/60 Pulse Oximetry 98 MDM - Fall Lab Data Result diagrams: 11/24/18 05:30 11/24/18 05:30 Labs: Lab Results 11/24/18 11/24/18 Range/Units 05:30 05:30 WBC 6.0 (4.5-11.0) X10^3/uL RBC 3.24 L (4.0-5.2) X10^6/uL Hgb 10.9 L (12.0-16.0) g/dL Hct 32.1 L (36-46) % MCV 99.0 (80-100) fL MCH 33.6 (26-34) PG MCHC 33.9 (30-36) % RDW 13.3 (11.6-14.8) % Plt Count 209 (150-400) X10^3/uL Neut % (Auto) 46.9 L (50-75) % Lymph % (Auto) 39.6 (25-40) % Bureau % (Auto) 9.7 (3-14) % Eos % (Auto) 3.2 (2-4) % Baso % (Auto) 0.6 (0-2) % Neut # (Auto) 2800 (9191-6443) /uL Lymph # (Auto) 2400 (4497-3943) /uL Bureau # (Auto) 600 (0-900) /uL Eos # (Auto) 200 (0-450) /uL Baso # (Auto) 0 (0-100) /uL Sodium 141 (137-145) mmol/L Potassium 3.4 (3.4-5.1) mmol/L Chloride 111 H (98-107) mmol/L Carbon Dioxide 19 L (22-32) mmol/L BUN 39 H (7-17) mg/dL Creatinine 2.10 H (0.52-1.04) mg/dL Estimated GFR 22.7 L (>60) mL/min BUN/Creatinine Ratio 18.6 (6-22) Glucose 120 H (80-110) mg/dL Calcium 8.8 (8.4-10.2) mg/dL Imaging Data Pelvis Xray / CT: My impression: No obvious Fx on Xray Radiologist's impression: Acute left iliac crest and left pubic rami fractures MDM Narrative Medical decision making narrative: Chronically ill patient presents with severe L hip pain after mechanical ground level fall. No obvious findings on Xray so we went right to CT which notes findings as stated above. Patient requires hospitalization for pain control, PT evaluation, and likely placement for rehab Discharge Plan Departure Patient Disposition: Admitted As Inpatient Clinical Impression: Closed fracture of pubic ramus Qualifiers: Encounter type: initial encounter Laterality: left Qualified Code(s): S32.592A - Other specified fracture of left pubis, initial encounter for closed fracture Closed fracture of iliac crest Qualifiers: Encounter type: initial encounter Laterality: left Qualified Code(s): S32.302A - Unspecified fracture of left ilium, initial encounter for closed fracture
[2018-11-24 05:48] LABS: Add Manual Diff / Slide Review NO; Basophils Absolute Auto 0 /uL (0-100); Basophils Percent Auto 0.6 % (0-2); Eosinophils Absolute Auto 200 /uL (0-450); Eosinophils Percent Auto 3.2 % (2-4); Hematocrit 32.1 % (36-46); Hemoglobin 10.9 g/dL (12.0-16.0); Lymphocytes Absolute Auto 2400 /uL (1100-4500); Lymphocytes Percent Auto 39.6 % (25-40); Mean Corpuscular HGB Conc 33.9 % (30-36); Mean Corpuscular Hemoglobin 33.6 PG (26-34); Monocytes Absolute Auto 600 /uL (0-900); Monocytes Percent Auto 9.7 % (3-14); Neutrophils Absolute Auto 2800 /uL (1500-7000); Neutrophils Percent Auto 46.9 % (50-75); Platelet Count 209 X10^3/uL (150-400); Red Blood Cell Count 3.24 X10^6/uL (4.0-5.2); Red Cell Distribution Width 13.3 % (11.6-14.8)
--- NOTE | 2018-11-24 05:48 | DI.CT.S_ITS ---
PROCEDURE: CT PEL WO CON INDICATIONS: fall with severe Left hip pain, cannot ambulate TECHNIQUE: Noncontrast 3 mm axial sections acquired through the bony pelvis, with coronal and sagittal reformatting. COMPARISON: None. FINDINGS: Image quality: Excellent. Bones: There is a mildly displaced left iliac crest fracture with fracture line extending towards the left sacroiliac joint. No significant diastases of the left sacroiliac joint. Visualized sacral ala and sacrum appear intact. Nondisplaced left superior pubic ramus fracture at its root. Mildly displaced left inferior pubic ramus fracture. No diastasis of the pubic symphysis. Degenerative changes of the bilateral hip joints. Findings appear more severe on the right. Visualized portions of the bilateral femur appear intact. No femoral neck fracture identified by CT. Left greater than right ossifications involving the superolateral acetabular rim consistent with sequela of chronic labral degenerative change. No suspicious intraosseous lesions. Lower lumbar spondylosis. Soft tissues: Limited visualization of the pelvic structures appear unremarkable without acute abnormalities. No pathologic pelvic free fluid. Scattered colonic diverticula without acute diverticulitis. Minimal circumferential bowel wall thickening of the visualized distal colon likely related to incomplete distention. No surrounding inflammatory stranding. No pelvic adenopathy. No suspicious fluid collections. No significant edema/hematoma of the musculature. IMPRESSION: 1. Fractures of the left pelvis including the left iliac crest, root/base of the left superior pubic ramus, and inferior left pubic ramus without significant diastases of the pubic symphysis or left sacroiliac joint. 2. Bilateral hip joint degenerative change. No femur fractures identified. 3. Colonic diverticulosis without acute diverticulitis. No significant discrepancy with the salesperson flying squad radiology preliminary report. Dictated by: Grupo Cisneros M.D. on 11/24/2018 at 8:27 Approved by: Grupo Cisneros M.D. on 11/24/2018 at 8:35
[2018-11-24] MEDS: SODIUM CHLORIDE 0.9% 500 ML 1000 ML IV (05:57)
[2018-11-24 05:58] LABS: BUN Creatinine Ratio 18.6 (6-22); Blood Urea Nitrogen 39 mg/dL (7-17); Calcium 8.8 mg/dL (8.4-10.2); Carbon Dioxide 19 mmol/L (22-32); Chloride 111 mmol/L (98-107); Estimated Glomerular Filt Rate 22.7 mL/min (>60); Glucose 120 mg/dL (80-110); HEMOLYSIS < 15 (0-50); Potassium 3.4 mmol/L (3.4-5.1); Sodium 141 mmol/L (137-145)
[2018-11-24] MEDS: fentaNYL 100 MCG/2 ML INJ 25 MCG IV (06:16)
--- NOTE | 2018-11-24 07:34 | PC.NURSE ---
Report attempted but Adrianne states need to discuss with hotel service supervisor due to c-diff precautions
--- NOTE | 2018-11-24 08:53 | DI.MRI.S_ITS ---
PROCEDURE: MR HEAD/BRAIN WO CON INDICATIONS: Constant Dizziness TECHNIQUE: Noncontrast axial T1 spin echo, axial T2 fast spin echo, sagittal and axial FLAIR, coronal T2 fast spin echo, axial gradient echo, axial diffusion and ADC through the brain. COMPARISON: [facility], CT, HEAD WITHOUT CONTRAST, 10/14/2013, 10:41. FINDINGS: Image quality: Diagnostic CSF Spaces: Basal cisterns are patent. No extra-axial fluid collections. Ventricles are normal in size and shape. Brain: No intracranial masses or hemorrhage. Hollingsworth/white matter interface is normal. Brainstem appears normal. Diffusion-weighted images demonstrate no acute ischemic insult. Small areas of increased flair signal are identified within the periventricular white matter of the bilateral parietal-occipital regions. There may be a few punctate areas of increased flair signal within the deep white matter of the frontal lobes, as well. Normal intravascular flow voids are present. Skull and face: Calvarium has normal marrow signal. Orbits appear normal. Sinuses: Sinuses and mastoids are clear. IMPRESSION: 1. No acute intracranial hemorrhage or ischemia. 2. Mild chronic small vessel ischemic changes. 3. No significant fluid is appreciated within the mastoid air cells. Dictated by: Branden Park M.D. on 11/25/2018 at 9:59 Approved by: Branden Park M.D. on 11/25/2018 at 10:02
[2018-11-24] MEDS: MORPHINE 4 MG/ML INJ IV ×3 (09:08→15:58)
[2018-11-24] MEDS: SODIUM CHLORIDE 0.9% 1,000 ML 125 ML IV (09:11)
--- NOTE | 2018-11-24 12:43 | PC.NURSE ---
Pt admitted for pelvis fx to l.side. Complained of pain and given 2mg of iv morphine which only helped pt a small amount with discomfort. Then given 4mg of iv Morphine and pt seems to be much more comfortable. She voided a large amount in the bedpan. She had a hard time getting off and on the bed shaver... She is not a surgical candidate per MD...She has stage 4 kidney disease and is a no code. Daughter in room and visiting. Pt is looking forward to a visit from her other daughter soon.
--- NOTE | 2018-11-24 13:32 | PM.CN ---
History of Present Illness Consult details Date Patient Seen: 11/24/18 Time Patient Seen: 13:32 Chief complaint: GLF Reason for consult: pelvis fracture, GLF Requesting provider: Andres Leslie Narrative: Yumi is a 78-year-old chronically ill female that had a ground level fall early in the day she fell onto her left side. She endorses left hip and pelvis pain. She was brought to the emergency room and evaluated by the emergency room physicians she was found to have a left-sided pelvis fracture with minimally displaced inferior and superior pubic ramus fractures and nondisplaced left iliac crest fracture that extends to the anterior SI joint without displacement. Patient denies other injury. She had no obvious deformity. She was admitted to the hospital service and Orthopedics was consulted. No numbness or tingling no motor deficits [facility] Medical History Allergic rhinitis, cause unspecified (Chronic 05/18/04) Anemia, unspecified (Chronic 04/20/04) Anxiety (Chronic) Arthralgia (Chronic 07/22/04) CAD (coronary artery disease) (Chronic) Chronic sinusitis, unspecified (Chronic 05/27/04) Depression (Chronic) Dry eye syndrome (Chronic 08/12/04) Fibromyalgia affecting multiple sites (Chronic) History of renal stone (Resolved) Low ferritin level (Chronic 09/05/14) Osteopenia (Chronic 04/20/04) Raynauds syndrome (Chronic) Renal osteodystrophy (Chronic) Renal tubular acidosis (Chronic) Restless leg syndrome (Chronic) Sjoegren syndrome (Chronic) Sleep apnea (Chronic) Stage 4 chronic kidney disease (Chronic) TMJ dysfunction (Chronic) Surgical History History of cataract removal with insertion of prosthetic lens (Resolved 04/09/01) History of cataract removal with insertion of prosthetic lens (Resolved 09/07/06) History of kidney surgery (Resolved 1959) History of YAG laser capsulotomy of lens of right eye (Resolved 04/2005) Social History marital status: number of children: 2 household members: family lives independently: Yes caregiver/support person: No housing: house pets and animals: Yes education level: college occupational status: other 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 natasha/hoahaoism: Alevism leisure activities: reading, volunteer work and other Smoking Status: Never smoker Tobacco: How many years used: 0 quit status: quit date established second hand exposure: Yes (Childhood and as young adult.) alcohol intake: never substance use type: does not use Meds Home Medications and Allergies Home Medications Medication Instructions Recorded Confirmed Type omega-3 fatty acids 1,000 mg 1,000 mg PO DAILY 11/18/17 11/24/18 History capsule Respironics [employer] Auto CPAP #1 ea 04/21/18 11/24/18 History acetaminophen 500 mg tablet 500 mg PO QID PRN 07/18/18 11/24/18 History albuterol sulfate 90 mcg/actuation 1 puff INHALATION Q6H PRN 07/18/18 11/24/18 History aerosol inhaler aspirin 81 mg tablet,delayed 81 mg PO DAILY 07/18/18 11/24/18 History release psyllium husk 0.52 gram capsule 0.52 gram PO DAILY 07/18/18 11/24/18 History furosemide 20 mg tablet 20 mg PO DAILY tab 07/26/18 11/24/18 History atorvastatin 40 mg PO DAILY 11/24/18 11/24/18 History hydroxychloroquine 200 mg PO BEDTIME 11/24/18 11/24/18 History lorazepam 0.5 mg PO BEDTIME 11/24/18 11/24/18 History sertraline 200 mg PO BEDTIME 11/24/18 11/24/18 History Allergies Allergy/AdvReac Type Severity Reaction Status Date / Time Penicillins [PENICILLINS] Allergy Severe hives Verified 11/24/18 06:39 Sulfa (Sulfonamide Allergy Severe hives Verified 11/24/18 06:39 Antibiotics) [SULFA (SULFONAMIDE ANTIBIOTICS)] codeine [CODEINE] AdvReac Mild difficulty Verified 11/24/18 06:39 sleeping Review of Systems Review of Systems Narrative: Endorses left pelvis and back pain. Denies fevers chills nausea or vomiting. Does state was recently diagnosed with C diff ROS Unobtainable: All systems reviewed & are unremarkable except as noted in HPI and below Exam Vital Signs (past 8 hours): - 11/24/18 05:46 11/24/18 06:47 11/24/18 07:44 Temperature Pulse Rate 72 68 70 Respiratory Rate 18 16 18 Blood Pressure 111/60 Blood Pressure [Left Arm] 101/48 L 102/51 L Pulse Oximetry 98 96 95 11/24/18 08:22 11/24/18 12:05 Temperature 97.4 F L Pulse Rate 71 79 Respiratory Rate 20 15 Blood Pressure 105/56 L 104/56 L Blood Pressure [Left Arm] Pulse Oximetry 95 98 Oxygen Delivery Method Room Air Oxygen Flow Rate 0 Narrative Exam Narrative: Alert oriented female in no acute distress lying in bed, chronically ill-appearing HEENT exam normocephalic atraumatic Resp: Lungs clear to auscultation bilaterally Cardiac exam: Regular rate and rhythm Abdomen: Soft and nontender Pelvis: Tender to palpation on the left side. No tenderness directly over the hip or proximal femur no ecchymosis. Lower extremity exam: Right lower extremity benign full range of motion and 5/5 dorsiflexion plantar flexion calf is soft. Sensation grossly intact to light touch Left lower extremity: No gross deformities. Demonstrates 5/5 dorsiflexion plantar flexion calf is soft. Sensation grossly intact to light touch. Brisk capillary refill. No pain with palpation about the femur knee or lower extremity Objective Labs Result Diagrams: 11/24/18 05:30 11/24/18 05:30 Labs: Laboratory Results - last 24 hr 11/24/18 11/24/18 05:30 05:30 WBC 6.0 RBC 3.24 L Hgb 10.9 L Hct 32.1 L MCV 99.0 MCH 33.6 MCHC 33.9 RDW 13.3 Plt Count 209 Neut % (Auto) 46.9 L Lymph % (Auto) 39.6 Walworth % (Auto) 9.7 Eos % (Auto) 3.2 Baso % (Auto) 0.6 Neut # (Auto) 2800 Lymph # (Auto) 2400 [place] # (Auto) 600 Eos # (Auto) 200 Baso # (Auto) 0 Sodium 141 Potassium 3.4 Chloride 111 H Carbon Dioxide 19 L BUN 39 H Creatinine 2.10 H Estimated GFR 22.7 L BUN/Creatinine Ratio 18.6 Glucose 120 H Calcium 8.8 Assessment & Plan Assessment & Plan narrative: 1. Left pelvis fractures: Patient has a minimally displaced fractures of the superior and inferior pubic rami she also has a left iliac crest fracture that extends into the anterior SI joint in an LC type pattern without displacement of the SI joint. Discussed with the patient that this fracture is nondisplaced and can be treated non operatively but will require weight-bearing protection. I have advised the patient be nonweightbearing on the left lower extremity in anticipate this for 6 weeks with progression to toe-touch and beyond after that but a total of 6-12 weeks of protected weight-bearing. We also discussed that a pelvis fractures can have a higher risk of DVT or PE and recommend DVT prophylaxis per her admitting team. We discussed that no surgery is indicated at this time. The patient will have follow-up x-rays in 7-10 days with inlet and outlet and AP pelvis views if there is no displacement will continue conservative treatment. Anticipate patient requiring longterm care as will be mostly transfers and wheelchair chair for the next 2-3 months. Patient understands and agrees with the plan. Time Spent With Patient Time with patient: less than 15 minutes
--- NOTE | 2018-11-24 14:16 | CM.DPC ---
Discharge Planning/Care Management DCP: assessment: case received this morning and EMR reviewed. Met then at 0900 with pt and her daughter Yolie Weeks: cell: [phone] Introduced self and role. Pt is a 78 year old female who admitted early this morning : 650 to care of hospitalist team. H&P is not yet available but Dr. Magaña noted in Team Rounds that she had consulted orthopedic team and Dr. Adams would see pt today. Payer: Medicare and [employer] PCP: Bruna Billingsley Admission status: was in review at time of the meeting: ISIDRO Harris has now confirmed admission status Is OBS. He states further that SPIVEY document stating same is being delivered by [facility] this afternoon. He also states that as per OBS protocol this will be reviewed again tomorrow as further documentation from the physician team is available. At this time OT and PT are not ordered. Pt lay in bed and stared a ceiling throughout the conversation. (It is noted by more extended EMR review that she had had hx of mental illness since her 20's and is currently followed by the [facility] clinic. Yolie stated that she lives with the patient. She was not ready to discuss further d/c issues during this radio interference trouble shooter conversation as needed to see what the physician team was planning. P: check in tomorrow and follow accordingly for d/c issues and options. CM Discharge Assessment Start: 11/24/18 14:14 Freq: Status: Active Protocol: Document 11/24/18 14:14 ITV (Rec: 11/24/18 14:16 ITV [id number]) Discharge Planning Assessment Advance Directives? Yes: POLST History Provided By Family Member,Medical Record Prior Living Arrangements House Household Members family Independent with ADL's unclear at this time Is patient alert and oriented? unclear at this time Whiteboard Updated in Patient Room with Yes name and ext. 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
--- NOTE | 2018-11-24 15:44 | DI.ECHO.S_ITS ---
[facility]---------+ [facility] +---------+ : : [address] [place] : : : : [id number] : : : : Phone: [phone]---------+ Echocardiogram Report + + :Name: KIRTI EDWARDS Study Date: 11/25/2018 Height: 61 in : :[facility] Exam Location: [facility] Weight: 107 lb : : Gender: Female BSA: 1.4 m2 : :: 1940 Age: 78 yrs BP: 123/60 mmHg: :Reason For Study: Cardiomyopathy : :Ordering Physician: Marvin : :Hospitalist Performed By: Natalia Page : :Referring: Ryan ROSENTHAL : + + Interpretation Summary The patient had an extremely difficult time tolerating the exam. The study quality was technically difficult. The left ventricular ejection fraction is normal. Diastolic parameters suggest a relaxation abnormality of the left ventricle, consistent with probable normal filling pressures. There is mild right ventricular hypertrophy. Pulmonary artery pressures cannot be estimated because of the lack of a measurable TR jet velocity but the IVC suggests a CVP of around 3 mmHg. -No significant change compared to the prior echocardiogram. Procedure: A two-dimensional transthoracic echocardiogram with color flow and Doppler was performed. Comparison is made with the echocardiogram of 10/10/2017. The study quality was technically difficult. The patient was in normal sinus rhythm during the exam. Left Ventricle: The left ventricle is normal in size. There is normal left ventricular wall thickness. The ejection fraction is estimated to be 60-65%. The left ventricular ejection fraction is normal. There are no obvious focal wall motion abnormalities noted but poor endocardial definition reduces the sensitivity for the detection of such. Diastolic parameters suggest a relaxation abnormality of the left ventricle, consistent with probable normal filling pressures. Right Ventricle: The right ventricle is normal in size and function. There is mild right ventricular hypertrophy. Atria: Both atria are normal in size. There is no Doppler evidence for an interatrial shunt. Mitral Valve: The mitral valve leaflets appear mildly thickened, but open well. There is trace mitral regurgitation. Aortic Valve: The aortic valve is trileaflet. The aortic valve opens well. There is no aortic valve stenosis. There is trace aortic regurgitation. Tricuspid Valve: The tricuspid valve is normal in structure and function. There is a trace or physiologic amount of tricuspid regurgitation. Pulmonary artery pressures cannot be estimated because of the lack of a measurable TR jet velocity but the IVC suggests a CVP of around 3 mmHg. Pulmonic Valve: The pulmonic valve is not well visualized. There is mild pulmonic regurgitation. Great Vessels: The aortic root is normal size. The ascending aorta is normal in size. The pulmonary is not well visualized. The IVC is of normal diameter and collapses greater than 50% with a sniff. This suggests a low right atrial pressure of 3 mm Hg. Pericardium/ Pleura There is no pericardial effusion. There is no pleural effusion. MMode/2D Measurements & Calculations LVIDd: 4.2 cm LVOT diam: 2.0 cm LVIDs: 3.0 cm Ao root diam: 3.3 cm FS: 27.2 % asc Aorta Diam: 2.8 cm EPSS: 0.60 cm IVSd: 0.68 cm LVPWd: 0.96 cm LV ge. diameter/BSA (cm/m^2): 2.9 LV sys. diameter/BSA (cm/m^2): 2.1 LA A2 area: 11.9 cm2 RA long axis: 4.2 cm LA A4 area: 15.3 cm2 RA area: 11.9 cm2 LA length (vol): 4.3 cm RA vol: 28.6 ml LA vol: 35.9 ml RA : 19.8 ml/m2 LA vol index: 24.8 ml/m2 IVC diam: 1.5 cm RVD1 (basal): 3.0 cm RVD2 (mid): 2.5 cm Doppler Measurements & Calculations Ao V2 max: 140.1 cm/sec LVOT Max Dionicio: 89.4 cm/sec Ao V2 mean: 89.7 cm/sec LV V1 max P.2 mmHg Ao max P.8 mmHg LV V1 VTI: 15.8 cm Ao mean P.8 mmHg DUNIA(I,D): 1.9 cm2 Ao V2 VTI: 25.2 cm DUNIA(V,D): 1.9 cm2 sev ratio: 0.63 DUNIA indexed to BSA (cm^2/m^2): 1.3 MV E max dionicio: 65.9 cm/sec PA V2 max: 106.7 cm/sec MV A max dionicio: 108.9 cm/sec PA V2 mean: 72.3 cm/sec MV E/A: 0.61 PA mean P.3 mmHg Med Peak E' Dionicio: 4.9 cm/sec PA Accel Time: 0.07 sec E/E' med: 13.6 Lat Peak E' Dionicio: 7.9 cm/sec E/E' lat: 8.3 E/e' average: 10.9 MV dec time: 0.16 sec MV P1/2t: 47.2 msec MV /2t max dionicio: 67.4 cm/sec SV(LVOT): 47.3 ml MVA(t): 4.7 cm2 Electronically signed by: Alexys Candelaria M.D. on Reading Physician:11/25/2018 04:53 PM
--- NOTE | 2018-11-24 17:14 | PC.NURSE ---
Addendum entered by Kim Rojas R.N. 11/24/18 23:26: Pt has great difficulty with movement r/t pain in left hip. Assisted onto bedpan for void. Continues to prefer lying perfectly still in bed versus repositioning. Administered 1 mg iv morphine to manage pain and to allow pt to be turned for care and skin integrity. Addendum entered by Kim Rojas R.N. 11/24/18 21:38: Offered pain medications to pt several times this evening and pt declines. Discussed with pt not advisable to remain on back without any turning or repositioning. Medicated with vicodin as per emar so that pt may tolerate repositioning in bed. BL rosalio hose placed as per order. Ice to left hip. Slight rotation onto left side with pillow to support. No stools this evening shift. Brain MRI to be done 9/7 a.m. as per Erika, voice intercept technician. Original Note: Pt awake and alert lying quietly in bed. Pt is hard of hearing, but demonstrates appropriate mentation and conversation. Pt's daughter, Yolie, is present in pt's room. Instructed pt's daughter and incoming visitor in contact precautions. Tele placed on pt per Dr. Olmedo's orders with explanation. Pt does c/o left hip pain 7/10 increases with movement in bed. Morphine administered as per emar. Ice to site. Admits to full sensation to BL LE's. Able to move all extremities independently with facial grimace and wince with movement of LE's. Bedrest at this time. Dr. Olmedo in to see patient and pt's daughter.
--- NOTE | 2018-11-24 17:47 | P.HP_ITS ---
History of Present Illness History of Present Illness Date Patient Seen: 11/24/18 Time Patient Seen: 17:58 Chief complaint: GLF Narrative: This is a 78-year-old female who woke up to go to the bathroom this morning, when she was overcome by a combination of the darkness and her chronic dizziness, falling down and fracturing her pelvis. Per the x-ray she has a le ft-sided pelvis fracture with minimally displaced inferior and superior pubic ramus fractures and nondisplaced left iliac crest fracture that extends to the anterior SI joint without displacement. She has been evaluated by Orthopedics and is nonweightbearing at this time. She has a chronic problem with C diff infections, most recently apparently appealed and approved for Dificid(over 4000 dollars) which she was to oyster picker at her pharmacy today. Subsequent to the fall she had a large bowel movement typical for her diarrhea but has not had any more bowel movements today. She has been evaluated by Cardiology for her chronic dizziness. Doctor Resendiz call me requesting that we proceed with the echocardiogram that had been planned as an outpatient and also keep her on telemetry while inpatient as a monitoring sequence had been planned as an outpatient. She does not recall having had any recent brain imaging so a brain MRI will be appropriate. She also has inoperable/severe coronary artery disease that was apparently found on cardiac catheterization a year ago. Cardiology tells me that interventions were not done due to a combination of the patient preference and her chronic kidney disease/comorbidities. Patient History Medical History Allergic rhinitis, cause unspecified (Chronic 05/18/04) Anemia, unspecified (Chronic 04/20/04) Anxiety (Chronic) Arthralgia (Chronic 07/22/04) CAD (coronary artery disease) (Chronic) Chronic sinusitis, unspecified (Chronic 05/27/04) Depression (Chronic) Dry eye syndrome (Chronic 08/12/04) Fibromyalgia affecting multiple sites (Chronic) History of renal stone (Resolved) Low ferritin level (Chronic 09/05/14) Osteopenia (Chronic 04/20/04) Raynauds syndrome (Chronic) Renal osteodystrophy (Chronic) Renal tubular acidosis (Chronic) Restless leg syndrome (Chronic) Sjoegren syndrome (Chronic) Sleep apnea (Chronic) Stage 4 chronic kidney disease (Chronic) TMJ dysfunction (Chronic) Surgical History History of cataract removal with insertion of prosthetic lens (Resolved 04/09/01) History of cataract removal with insertion of prosthetic lens (Resolved 09/07/06) History of kidney surgery (Resolved 1959) History of YAG laser capsulotomy of lens of right eye (Resolved 04/2005) Social History marital status: number of children: 2 household members: family lives independently: Yes caregiver/support person: No housing: house pets and animals: Yes education level: college occupational status: other 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 leisure activities: reading, volunteer work and other Smoking Status: Never smoker Tobacco: How many years used: 0 quit status: quit date established second hand exposure: Yes (Childhood and as young adult.) alcohol intake: never substance use type: does not use Family & Social History Family History (Updated 11/24/18 @ 18:09 by Ryan Olmedo MD) Mother Dementia Father Lung cancer Asbestosis Heart disease Social History: household members family Prior Living Arrangements House lives independently Yes caregiver/support person No Safety & Behavioral: Feels Safe in Current Yes Environment Been Physically Hurt or No Threatened By a Person Suicidal Ideation Description None Suicide Plan Description No Plan Tobacco & Substance use: Smoking Status Never smoker alcohol intake never Substance Use Type does not use Comment: Her backup decision maker is her daughter Tawnya. Dr. Billingsley is her primary care Dr. Patricia is her buccaro Dr. Resnediz is her dispatcher maintenance Meds Home Medications and Allergies Home Medications Medication Instructions Recorded Confirmed Type omega-3 fatty acids 1,000 mg 1,000 mg PO DAILY 11/18/17 11/24/18 History capsule Respironics DreamStation Auto CPAP #1 ea 04/21/18 11/24/18 History acetaminophen 500 mg tablet 500 mg PO QID PRN 07/18/18 11/24/18 History albuterol sulfate 90 mcg/actuation 1 puff INHALATION Q6H PRN 07/18/18 11/24/18 History aerosol inhaler aspirin 81 mg tablet,delayed 81 mg PO DAILY 07/18/18 11/24/18 History release psyllium husk 0.52 gram capsule 0.52 gram PO DAILY 07/18/18 11/24/18 History furosemide 20 mg tablet 20 mg PO DAILY tab 07/26/18 11/24/18 History atorvastatin 40 mg PO DAILY 11/24/18 11/24/18 History hydroxychloroquine 200 mg PO BEDTIME 11/24/18 11/24/18 History lorazepam 0.5 mg PO BEDTIME 11/24/18 11/24/18 History sertraline 200 mg PO BEDTIME 11/24/18 11/24/18 History Allergies Allergy/AdvReac Type Severity Reaction Status Date / Time Penicillins [PENICILLINS] Allergy Severe hives Verified 11/24/18 06:39 Sulfa (Sulfonamide Allergy Severe hives Verified 11/24/18 06:39 Antibiotics) [SULFA (SULFONAMIDE ANTIBIOTICS)] codeine [CODEINE] AdvReac Mild difficulty Verified 11/24/18 06:39 sleeping Review of Systems Review of Systems Narrative: Positive for dizziness, falls, pelvis pain, diarrhea, shortness of breath. Negative for abdominal pain, nausea, vomiting, chest pain, p alpitations, difficulty talking, joint pain, new allergies, sore throat, coughing, seizures, headaches. ROS Unobtainable: All systems reviewed & are unremarkable except as noted in HPI and below Exam Vital Signs (past 8 hours): - 11/24/18 12:05 11/24/18 16:11 Temperature 97.4 F L 97.4 F L Pulse Rate 79 79 Respiratory Rate 15 15 Blood Pressure 104/56 L 108/61 Pulse Oximetry 98 100 Oxygen Delivery Method Room Air Oxygen Flow Rate 0 Narrative Exam Narrative: She is alert and oriented x3. No apparent distress She speaks quietly She says her pelvic pain is at the level of ?Oh God.? Pupils are equally round and reactive to light and accommodation. Extraocular muscles are intact. Sclerae are pink and nonicteric. No lymph nodes are felt head, neck, supraclavicular area. There is no thyromegaly. There are no carotid bruits heard. JVD is less than 6 cm. Heart is regular rate and rhythm without murmur. Lungs are clear to auscultation bilaterally. Abdomen is soft, bowel sounds positive, nontender, no organomegaly. Extremities have no ankle edema. She is tender over the left pelvis and the left ribs/flank. There is no skin rash or jaundice Neuro exam is noted for cranial nerves 2-12 tested intact, motor function is 4/5 throughout, there is no lateralizing deficit, there is no tremor. Objective Labs Result Diagrams: 11/24/18 05:30 11/24/18 05:30 Labs: Laboratory Results - last 24 hr 11/24/18 11/24/18 05:30 05:30 WBC 6.0 RBC 3.24 L Hgb 10.9 L Hct 32.1 L MCV 99.0 MCH 33.6 MCHC 33.9 RDW 13.3 Plt Count 209 Neut % (Auto) 46.9 L Lymph % (Auto) 39.6 [place] % (Auto) 9.7 Eos % (Auto) 3.2 Baso % (Auto) 0.6 Neut # (Auto) 2800 Lymph # (Auto) 2400 [place] # (Auto) 600 Eos # (Auto) 200 Baso # (Auto) 0 Sodium 141 Potassium 3.4 Chloride 111 H Carbon Dioxide 19 L BUN 39 H Creatinine 2.10 H Estimated GFR 22.7 L BUN/Creatinine Ratio 18.6 Glucose 120 H Calcium 8.8 Assessment & Plan Assessment & Plan narrative: This is a 78-year-old female who woke up to go to the bathroom this morning, when she was overcome by the darkness and her chronic dizziness, falling down and fracturing her pelvis. Per the x-ray she has a left-sided pelvis fracture with minimally displaced inferior and superior pubic ramus fractures and nondisplaced left iliac crest fracture that extends to the anterior SI joint without displacement. She has been evaluated by Orthopedics and is nonweightbearing at this time. Pelvic fractures -weightbear guidelines as managed by Orthopedics. Nonweightbearing on the left lower extremity for 6 weeks with progression to toe-touch and beyond after that but a total of 6-12 weeks of protected weight-bearing. The patient will have follow-up x-rays in 7-10 days with inlet and outlet and AP pelvis views if there is no displacement will continue conservative treatment. Anticipate patient requiring custodial care as will be mostly transfers and wheelchair chair for the next 2-3 months. -DVT prophylaxis In home ground level fall -she describes chronic dizziness. -brain MRI ordered -telemetry ordered -echocardiogram ordered Coronary artery disease -per phone call with Dr. Resendiz, she has severe coronary artery disease that has not been stented due to her chronic kidney disease and comorbidities. -continue aspirin and Lipitor -cardiology has requested echocardiogram and telemetry monitoring as they had been planning those evaluations recently as an outpatient. Chronic dizziness -check echocardiogram, telemetry and brain MRI Chronic C diff infection/diarrhea -begin Dificid which was apparently recently appealed and then approved by her insurance for outpatient use but she had not been able to pick it up yet. -she does not have an infectious disease doctor or GI specialist. -the next step may be a stool transplant. Anemia of CKD -hgb 10.9 -follow CBC Hyperlipidemia -continue atorvastatin Sjogren syndrome -continue Plaquenil Chronic kidney disease 4 -followed outpatient by Nephrology -avoid nephrotoxic agents and medications. -follow BMP Depression/anxiety -continue sertraline and bedtime lorazepam Quality VTE Deep Vein Thrombosis/Pulmonary Embolism Present on Admission: No
[2018-11-24] MEDS: SODIUM CHLORIDE 0.45% 1,000 ML 70 ML IV (18:00)
[2018-11-24] MEDS: FIDAXOMICIN 200 MG TABLET PO (20:54)
[2018-11-24] MEDS: HYDROCODONE/ACET 5/325 TABLET 1 TAB PO (20:55)
[2018-11-24] MEDS: MORPHINE 2 MG/ML INJ 1 MG IV (22:43)
[2018-11-25] VITALS (7 sets, daily range): BP systolic 101–110; BP diastolic 51–75; PULSE 79–89; RESP 15–16; TEMP 36.7–37.2; O2SAT 92–99
[2018-11-25] MEDS: HYDROCODONE/ACET 5/325 TABLET 1 TAB PO ×4 (01:31→16:12)
--- NOTE | 2018-11-25 01:54 | PC.NURSE ---
Addendum entered by Katherin Ortiz R.N. 11/25/18 06:27: Medicated with Vicodin for 6/10 pain with movement but states she feels like she is moving easier. Assisted to reposition onto right side. Declines ice pack. Original Note: Patient is alert and oriented. Breath sounds CTA with RA sat of 98%. HRR and telemetry reading was SR. Denies nausea. BT hyperactive; has c-diff but reports no stools since prior to fall that brought her into hospital. Having pain in pelvic area and initially declined pain meds but in obvious discomfort with movement so finally agreeable to taking Vicodin. Needing to be repositioned q2h as not moving much herself due to the pain. Was able to lift buttocks slightly off bed to use bedpan. Denies dysuria, frequency, urgency or incontinence. Wearing bilateral ALLA stockings. Fall risk score is high and bed alarm is activated. On contact isolation due to c-diff dx.
[2018-11-25] MEDS: FIDAXOMICIN 200 MG TABLET PO ×2 (09:04→20:48)
[2018-11-25] MEDS: SODIUM CHLORIDE 0.45% 1,000 ML 70 ML IV (09:15)
--- NOTE | 2018-11-25 13:18 | PM.PN.1 ---
Subjective Subjective Date Patient Seen: 11/25/18 Interval history: Patient is a 78-year-old female who was admitted to the hospital yesterday following a fall having suffered a pelvic fracture. She is known to have recently been diagnosed with C diff and is treated with fidaxomicin. Likely her diarrhea has resolved. She has no other complaints Exam Vital Signs (past 8 hours): - 11/25/18 08:00 Temperature 98.6 F Pulse Rate 79 Respiratory Rate 16 Blood Pressure 102/75 Pulse Oximetry 99 Oxygen Delivery Method Room Air Oxygen Flow Rate 0 Narrative Exam Narrative: Elderly female lying in bed in no obvious distress Lungs: Clear to auscultation Cardiac exam: Regular rate and rhythm normal S1-S2 Abdomen: Soft nontender nondistended Extremities: No edema Objective Labs Result Diagrams: 11/24/18 05:30 11/24/18 05:30 Assessment & Plan Assessment & Plan narrative: [address] [address] History & Physical Report Patient: Yumi Nickerson EMR#: [id number] : 1940Acct:[id number] Age/Sex: 78 / F Date of Service: 11/24/18 Provider: Ryan Olmedo MD History of Present Illness History of Present Illness Date Patient Seen: 11/24/18 Time Patient Seen: 17:58 Chief complaint: GLF Narrative: This is a 78-year-old female who woke up to go to the bathroom this morning, when she was overcome by a combination of the darkness and her chronic dizziness, falling down and fracturing her pelvis. Per the x-ray she has a left-sided pelvis fracture with minimally displaced inferior and superior pubic ramus fractures and nondisplaced left iliac crest fracture that extends to the anterior SI joint without displacement. She has been evaluated by Orthopedics and is nonweightbearing at this time. She has a chronic problem with C diff infections, most recently apparently appealed and approved for Dificid(over 4000 dollars) which she was to cloth picker at her pharmacy today. Subsequent to the fall she had a large bowel movement typical for her diarrhea but has not had any more bowel movements today. She has been evaluated by Cardiology for her chronic dizziness. Doctor Resendiz call me requesting that we proceed with the echocardiogram that had been planned as an outpatient and also keep her on telemetry while inpatient as a monitoring sequence had been planned as an outpatient. She does not recall having had any recent brain imaging so a brain MRI will be appropriate. She also has inoperable/severe coronary artery disease that was apparently found on cardiac catheterization a year ago. Cardiology tells me that interventions were not done due to a combination of the patient preference and her chronic kidney disease/comorbidities. Patient History Medical History Allergic rhinitis, cause unspecified (Chronic 05/18/04) Anemia, unspecified (Chronic 04/20/04) Anxiety (Chronic) Arthralgia (Chronic 07/22/04) CAD (coronary artery disease) (Chronic) Chronic sinusitis, unspecified (Chronic 05/27/04) Depression (Chronic) Dry eye syndrome (Chronic 08/12/04) Fibromyalgia affecting multiple sites (Chronic) History of renal stone (Resolved) Low ferritin level (Chronic 09/05/14) Osteopenia (Chronic 04/20/04) Raynauds syndrome (Chronic) Renal osteodystrophy (Chronic) Renal tubular acidosis (Chronic) Restless leg syndrome (Chronic) Sjoegren syndrome (Chronic) Sleep apnea (Chronic) Stage 4 chronic kidney disease (Chronic) TMJ dysfunction (Chronic) Surgical History History of cataract removal with insertion of prosthetic lens (Resolved 04/09/01) History of cataract removal with insertion of prosthetic lens (Resolved 09/07/06) History of kidney surgery (Resolved 1959) History of YAG laser capsulotomy of lens of right eye (Resolved 04/2005) Social History marital status: number of children: 2 household members: family lives independently: Yes caregiver/support person: No housing: house pets and animals: Yes education level: college occupational status: other 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 leisure activities: reading, volunteer work and other Smoking Status: Never smoker Tobacco: How many years used: 0 quit status: quit date established second hand exposure: Yes (Childhood and as young adult.) alcohol intake: never substance use type: does not use Family & Social History Family History (Updated 11/24/18 @ 18:09 by Ryan Olmedo MD) Mother Dementia Father Lung cancer Asbestosis Heart disease Social History: household members family Prior Living Arrangements House lives independently Yes caregiver/support person No Safety & Behavioral: Feels Safe in Current Yes Environment Been Physically Hurt or No Threatened By a Person Suicidal Ideation Description None Suicide Plan Description No Plan Tobacco & Substance use: Smoking Status Never smoker alcohol intake never Substance Use Type does not use Comment: Her backup decision maker is her daughter Tawnya. Dr. Billingsley is her primary care Dr. Patricia is her machinist class b Dr. Resendiz is her health assessment and treatment teacher Meds Home Medications and Allergies Home Medications Medication Instructions Recorded Confirmed Type omega-3 fatty acids 1,000 mg 1,000 mg PO DAILY 11/18/17 11/24/18 History capsule Respironics DreamStation Auto CPAP #1 ea 04/21/18 11/24/18 History acetaminophen 500 mg tablet 500 mg PO QID PRN 07/18/18 11/24/18 History albuterol sulfate 90 mcg/actuation 1 puff INHALATION Q6H PRN 07/18/18 11/24/18 History aerosol inhaler aspirin 81 mg tablet,delayed 81 mg PO DAILY 07/18/18 11/24/18 History release psyllium husk 0.52 gram capsule 0.52 gram PO DAILY 07/18/18 11/24/18 History furosemide 20 mg tablet 20 mg PO DAILY tab 07/26/18 11/24/18 History atorvastatin 40 mg PO DAILY 11/24/18 11/24/18 History hydroxychloroquine 200 mg PO BEDTIME 11/24/18 11/24/18 History lorazepam 0.5 mg PO BEDTIME 11/24/18 11/24/18 History sertraline 200 mg PO BEDTIME 11/24/18 11/24/18 History Allergies Allergy/AdvReac Type Severity Reaction Status Date / Time Penicillins [PENICILLINS] Allergy Severe hives Verified 11/24/18 06:39 Sulfa (Sulfonamide Allergy Severe hives Verified 11/24/18 06:39 Antibiotics) [SULFA (SULFONAMIDE ANTIBIOTICS)] codeine [CODEINE] AdvReac Mild difficulty Verified 11/24/18 06:39 sleeping Review of Systems Review of Systems Narrative: Positive for dizziness, falls, pelvis pain, diarrhea, shortness of breath. Negative for abdominal pain, nausea, vomiting, chest pain, palpitations, difficulty talking, joint pain, new allergies, sore throat, coughing, seizures, headaches. ROS Unobtainable: All systems reviewed & are unremarkable except as noted in HPI and below Exam Vital Signs (past 8 hours): - 11/24/18 12:05 11/24/18 16:11 Temperature 97.4 F L 97.4 F L Pulse Rate 79 79 Respiratory Rate 15 15 Blood Pressure 104/56 L 108/61 Pulse Oximetry 98 100 Oxygen Delivery Method Room Air Oxygen Flow Rate 0 Narrative Exam Narrative: She is alert and oriented x3. No apparent distress She speaks quietly She says her pelvic pain is at the level of ?Oh God.? Pupils are equally round and reactive to light and accommodation. Extraocular muscles are intact. Sclerae are pink and nonicteric. No lymph nodes are felt head, neck, supraclavicular area. There is no thyromegaly. There are no carotid bruits heard. JVD is less than 6 cm. Heart is regular rate and rhythm without murmur. Lungs are clear to auscultation bilaterally. Abdomen is soft, bowel sounds positive, nontender, no organomegaly. Extremities have no ankle edema. She is tender over the left pelvis and the left ribs/flank. There is no skin rash or jaundice Neuro exam is noted for cranial nerves 2-12 tested intact, motor function is 4/5 throughout, there is no lateralizing deficit, there is no tremor. Objective Labs Result Diagrams: 11/24/18 05:30 document embedded image 11/24/18 05:30 document embedded image Labs: Laboratory Results - last 24 hr 11/24/18 11/24/18 05:30 05:30 WBC 6.0 RBC 3.24 L Hgb 10.9 L Hct 32.1 L MCV 99.0 MCH 33.6 MCHC 33.9 RDW 13.3 Plt Count 209 Neut % (Auto) 46.9 L Lymph % (Auto) 39.6 [place] % (Auto) 9.7 Eos % (Auto) 3.2 Baso % (Auto) 0.6 Neut # (Auto) 2800 Lymph # (Auto) 2400 [place] # (Auto) 600 Eos # (Auto) 200 Baso # (Auto) 0 Sodium 141 Potassium 3.4 Chloride 111 H Carbon Dioxide 19 L BUN 39 H Creatinine 2.10 H Estimated GFR 22.7 L BUN/Creatinine Ratio 18.6 Glucose 120 H Calcium 8.8 Assessment & Plan Assessment & Plan narrative: This is a 78-year-old female who woke up to go to the bathroom this morning, when she was overcome by the darkness and her chronic dizziness, falling down and fracturing her pelvis. Per the x-ray she has a left-sided pelvis fracture with minimally displaced inferior and superior pubic ramus fractures and nondisplaced left iliac crest fracture that extends to the anterior SI joint without displacement. She has been evaluated by Orthopedics and is nonweightbearing at this time. Pelvic fractures -weightbear guidelines as managed by Orthopedics. Nonweightbearing on the left lower extremity for 6 weeks with progression to toe-touch and beyond after that but a total of 6-12 weeks of protected weight-bearing. The patient will have follow-up x-rays in 7-10 days with inlet and outlet and AP pelvis views if there is no displacement will continue conservative treatment. Anticipate patient requiring fdc care as will be mostly transfers and wheelchair chair for the next 2-3 months. -DVT prophylaxis In home ground level fall -she describes chronic dizziness. -brain MRI ordered -telemetry ordered -echocardiogram ordered MRI unremarkable for the etiology of her dizziness. Echocardiogram pending Coronary artery disease -per phone call with Dr. Resendiz, she has severe coronary artery disease that has not been stented due to her chronic kidney disease and comorbidities. -continue aspirin and Lipitor -cardiology has requested echocardiogram and telemetry monitoring as they had been planning those evaluations recently as an outpatient. Chronic dizziness -check echocardiogram, telemetry and brain MRI Chronic C diff infection/diarrhea -begin Dificid which was apparently recently appealed and then approved by her insurance for outpatient use but she had not been able to pick it up yet. -she does not have an infectious disease doctor or GI specialist. -the next step may be a stool transplant. Anemia of CKD -hgb 10.9 -follow CBC Hyperlipidemia -continue atorvastatin Sjogren syndrome -continue Plaquenil Chronic kidney disease 4 -followed outpatient by Nephrology -avoid nephrotoxic agents and medications. -follow BMP Depression/anxiety -continue sertraline and bedtime lorazepam Quality Quality VTE Deep Vein Thrombosis/Pulmonary Embolism Present on Admission: No
--- NOTE | 2018-11-25 17:07 | OT.IP.TRT ---
Occupational Therapy Treatment Note M3 OT- IP Subjective and Pain Start: 11/25/18 17:04 Freq: Status: Active Protocol: Document 11/25/18 17:04 [facility] (Rec: 11/25/18 17:05 [facility] [id number]) OT- Subjective Occupational Therapy Visit Type Type Patient Refusal Notes Attempted to see pt for OT eval, pt refusing to get up at this time. Assisted nursing aid for positioning in the bed.
--- NOTE | 2018-11-25 18:02 | PT.IPTN ---
Physical Therapy Treatment Note M3 PT-IP Subjective Start: 11/25/18 18:00 Freq: NEEDED Status: Active Protocol: Document 11/25/18 18:00 AB (Rec: 11/25/18 18:02 AB [id number]) Subjective Physical Therapy Visit Type Type Patient Refusal Notes pt refused PT. stated that she cannot even tolerate moving in bed due to pain and will not be able to get up with PT. informed regarding PT following up tomorrow. pt hesistant but understood regarding risks/benefits of PT .
[2018-11-25] MEDS: diphenhydrAMINE 25 MG TABLET PO (19:59)
[2018-11-26] VITALS (13 sets, daily range): BP systolic 98–148; BP diastolic 63–78; PULSE 77–96; RESP 16–20; TEMP 36.6–37.3; O2SAT 94–100
[2018-11-26] MEDS: HYDROCODONE/ACET 5/325 TABLET 1 TAB PO ×5 (00:38→23:41)
--- NOTE | 2018-11-26 00:50 | PC.NURSE ---
Addendum entered by Katherin Ortiz R.N. 11/26/18 06:03: Slept between repositioning. States pain 4/10 this morning; medicated with Vicodin to maintain better pain control. Original Note: Patient is alert and oriented. Breath sounds with inspiratory crackles in right LL; RA sat 96%. Respirations are shallow and has difficulty taking deep breaths related to pain. HRR and was SR on telemetry; BP 144/72. Denies nausea. BT present and abdomen is soft although tender over LLQ. Able to move self from side lying position onto back but needs reminders to turn. Having 6/10 sharp pain with movement; medicated with Vicodin and discussed pain management to encourage movement and deep breathing. Voiding per bedpan and denies dysuria, frequency or urgency. Wearing bilateral ALLA stockings. Remains on bedrest at this time. Enteric isolation due to c-diff although has had no stools since prior to hospital admission. Fall risk score is high and bed alarm is activated.
--- NOTE | 2018-11-26 08:04 | PM.PN.1 ---
Subjective Subjective Date Patient Seen: 11/26/18 Interval history: She is seen today to follow up her pelvic fracture, chronic kidney disease, depression, C diff disease, coronary disease, etc. The pelvis continues to be quite painful limiting her participation physical therapy as would be expected. There is now a insurance complication where her insurance is insisting that this complicated admission is actually ?an observation admission, instead of an inpatient admission.? That has significant ramifications for her and her family. The diarrhea seems to have stopped. Exam Vital Signs (past 8 hours): - 11/26/18 00:44 11/26/18 00:48 11/26/18 01:08 Temperature 99.1 F Pulse Rate 96 H Respiratory Rate 18 Blood Pressure 144/72 H Pulse Oximetry 96 97 11/26/18 06:00 Temperature 97.8 F Pulse Rate 77 Respiratory Rate 16 Blood Pressure 120/63 Pulse Oximetry 94 Oxygen Delivery Method Room Air Oxygen Flow Rate 0 Narrative Exam Narrative: She is alert and oriented x3. She appears to be in mild distress from ongoing left pelvic pain. Heart is regular rate and rhythm without murmur. Lungs are clear to auscultation bilaterally. Extremities have no ankle edema. She is tender on the left side of the pelvis. Objective Labs Result Diagrams: 11/26/18 08:15 11/26/18 08:15 Assessment & Plan Assessment & Plan narrative: This is a 78-year-old female who woke up to go to the bathroom and was overcome by the darkness and her chronic dizziness, falling down and fracturing her pelvis. Per the x-ray she has a left-sided pelvis fracture with minimally displaced inferior and superior pubic ramus fractures and nondisplaced left iliac crest fracture that extends to the anterior SI joint without displacement. Pelvic fractures -weightbear guidelines as managed by Orthopedics. Nonweightbearing on the left lower extremity for 6 weeks with progression to toe-touch and beyond after that but a total of 6-12 weeks of protected weight-bearing. The patient will have follow-up x-rays in 7-10 days with inlet and outlet and AP pelvis views if there is no displacement will continue conservative treatment. Anticipate patient requiring [facility] care as will be mostly transfers and wheelchair chair for the next 2-3 months. -DVT prophylaxis with enoxaparin -it has been difficult for her to cooperate with physical therapy. In home ground level fall -she describes chronic dizziness. -brain MRI was unremarkable -telemetry has apparently been unremarkable -echocardiogram report not available today MRI unremarkable for the etiology of her dizziness. Echocardiogram pending Coronary artery disease -per phone call with Dr. Resendiz, she has severe coronary artery disease that has not been stented due to her chronic kidney disease and comorbidities. -continue aspirin and Lipitor -cardiology has requested echocardiogram and telemetry monitoring as they had been planning those evaluations recently as an outpatient. Chronic dizziness -check echocardiogram, telemetry and brain MRI, with the echo portion still pending. Chronic C diff infection/diarrhea -continue on Dificid which was apparently recently appealed and then approved by her insurance for outpatient use but she had not been able to pick it up yet. -she does not have an infectious disease doctor or GI specialist. -the next step may be a stool transplant. -no liquid bowel movement since admission. Anemia of CKD -hgb 10.5 -follow CBC Hyperlipidemia -continue atorvastatin Sjogren syndrome -continue Plaquenil Chronic kidney disease 4 -followed outpatient by Nephrology -avoid nephrotoxic agents and medications. -follow BMP with creatinine improved from 2.6 down to 1.9 and a GFR 25. Depression/anxiety -continue sertraline and bedtime lorazepam Disposition is unclear but may be return to Home [facility]? Quality VTE Deep Vein Thrombosis/Pulmonary Embolism Present on Admission: No
[2018-11-26 08:29] LABS: Add Manual Diff / Slide Review NO; Basophils Absolute Auto 100 /uL (0-100); Basophils Percent Auto 0.8 % (0-2); Eosinophils Absolute Auto 200 /uL (0-450); Eosinophils Percent Auto 3.2 % (2-4); Hematocrit 30.4 % (36-46); Hemoglobin 10.5 g/dL (12.0-16.0); Lymphocytes Absolute Auto 1000 /uL (1100-4500); Lymphocytes Percent Auto 13.4 % (25-40); Mean Corpuscular HGB Conc 34.5 % (30-36); Mean Corpuscular Hemoglobin 34.2 PG (26-34); Mean Corpuscular Volume 99.1 fL (80-100); Monocytes Absolute Auto 600 /uL (0-900); Neutrophils Absolute Auto 5700 /uL (1500-7000); Neutrophils Percent Auto 74.6 % (50-75); Platelet Count 157 X10^3/uL (150-400); Red Blood Cell Count 3.07 X10^6/uL (4.0-5.2); Red Cell Distribution Width 13.5 % (11.6-14.8); White Blood Cell Count 7.7 X10^3/uL (4.5-11.0)
[2018-11-26 08:40] LABS: BUN Creatinine Ratio 13.2 (6-22); Blood Urea Nitrogen 25 mg/dL (7-17); Calcium 9.2 mg/dL (8.4-10.2); Carbon Dioxide 17 mmol/L (22-32); Chloride 117 mmol/L (98-107); Estimated Glomerular Filt Rate 25.5 mL/min (>60); Glucose 86 mg/dL (80-110); HEMOLYSIS < 15 (0-50); Potassium 3.9 mmol/L (3.4-5.1); Sodium 142 mmol/L (137-145)
[2018-11-26] MEDS: FIDAXOMICIN 200 MG TABLET PO ×2 (09:40→22:10)
[2018-11-26] MEDS: SODIUM CHLORIDE 0.9% FLUSH 10 ML IV ×2 (09:40→22:09)
[2018-11-26] MEDS: MORPHINE 2 MG/ML INJ 1 MG IV (09:46)
--- NOTE | 2018-11-26 10:34 | PT.IIE ---
Surgical History (Last Reviewed 11/24/18 @ 17:47 by Ryan Olmedo MD) History of cataract removal with insertion of prosthetic lens (Resolved 04/09/01) History of cataract removal with insertion of prosthetic lens (Resolved 09/07/06) History of kidney surgery (Resolved 1959) History of YAG laser capsulotomy of lens of right eye (Resolved 04/2005) Medical History (Last Reviewed 11/24/18 @ 17:47 by Ryan Olmedo MD) Allergic rhinitis, cause unspecified (Chronic 05/18/04) Anemia, unspecified (Chronic 04/20/04) Anxiety (Chronic) Arthralgia (Chronic 07/22/04) CAD (coronary artery disease) (Chronic) Chronic sinusitis, unspecified (Chronic 05/27/04) Depression (Chronic) Dry eye syndrome (Chronic 08/12/04) Fibromyalgia affecting multiple sites (Chronic) History of renal stone (Resolved) Low ferritin level (Chronic 09/05/14) Osteopenia (Chronic 04/20/04) Raynauds syndrome (Chronic) Renal osteodystrophy (Chronic) Renal tubular acidosis (Chronic) Restless leg syndrome (Chronic) Sjoegren syndrome (Chronic) Sleep apnea (Chronic) Stage 4 chronic kidney disease (Chronic) TMJ dysfunction (Chronic) Physical Therapy Inpatient Evaluation/Re-Eval M1 PT/OT-IP Prior Functional Status Start: 11/25/18 18:00 Freq: NEEDED Status: Active Protocol: Document 11/26/18 10:08 AW (Rec: 11/26/18 10:34 AW [id number]) Medical Review Prior Functional Status Medical History Reviewed Yes Diet/Fluid Consistency Regular Communication Able to make needs known Mobility and Gait Pt was typically ambulating without assisstive device but would occasionally use a 4WW for longer community distances . She notes she used her 4WW when she visited the [employer] [place] recently and felt it made a difference in her stability and endurance. Activities of Daily Living and IADL's Pt was independent with dressing, bathing, toileting. Her granddaughter often assists with meals and her daughter sometimes assists with medications. Prior Functional Level (Other details) Pt's activity tolerance has decreased over the past year with worsening kidney disease and COPD. She uses CPAP at home but no supplemental oxygen. Social History Household Members family Living Arrangements House Number of Floors (Floors) Two Floors Number of Stairs To Enter/Railing? 1 PARISH from carport with no railing. Pt lives with her daughter and grandchildren in a two level home, but lives on the main level with no need to access the basement Home Environment Standard Height Toilet,Walk in Shower Home Equipment Four Wheel Walker,Hand Held Shower,Grab Bars In Shower Employment Status Retired M2 PT-IP Current Condition Start: 11/25/18 18:00 Freq: NEEDED Status: Active Protocol: Document 11/26/18 10:08 AW (Rec: 11/26/18 10:34 AW [id number]) Physical Therapy Current Condition Current Condition Evaluation Date 11/26/18 Treatment Diagnosis left iliac crest and left pubic rami fractures, managed conservatively Onset Date 11/24/18 Weight Bearing Status Weight Bearing Status Non-Weight Bearing Allowed Weight Bearing Amount (enter % NWB LLE or #) (%) M3 PT-IP Subjective Start: 11/25/18 18:00 Freq: NEEDED Status: Active Protocol: Document 11/26/18 10:08 AW (Rec: 11/26/18 10:34 AW [id number]) Subjective Physical Therapy Visit Type Type Initial Evaluation Visit Start Time 09:20 Visit Stop Time 10:03 Total Visit Minutes 43 Number of CONTRACT SPECIALIST Visits 0 Physical Therapy Visit Comments Patient Comments Pt states she is experiencing a lot of pain with any movement, but is willing to work with PT today Patient Goals I want to get be able to move without pain Therapy Pain Assessment Pain When Pain Assessed During Mobility Pain Present Pain Present Pain Reported Location Left Hip Intensity 10 Scale Used 2/10 at rest, 10/10 with bed mobility Pain Management Techniques Modification of Treatment,Re- positioning,Timing of Activity with Medications M4 PT-IP Mobility and Gait Start: 11/25/18 18:00 Freq: NEEDED Status: Active Protocol: Document 11/26/18 10:08 AW (Rec: 11/26/18 10:34 AW [id number]) PT-Bed Mobility Assessment Supine to Sit Supine to Sit Moderate Assistance,1 Person Assistance,Head of Bed Elevated,Bedrails Sit to Supine Sit to Supine Moderate Assistance,1 Person Assistance Scooting Scooting to Edge of Bed Minimal Assistance Scooting Up and Down in Bed Minimal Assistance PT-Transfer Assessment Sit to and From Stand Sit to and from Stand Maximum Assistance,1 Person Assistance,Use of Upper Extremities Equipment Transfer Assistive Device Gait Belt,Front Wheeled Walker Orthotic/Prosthetic Devices or Brace: No Comments Mobility Comments Pt required max assist for sit <> stand using FWW. She reports immediate increase in pain from resting level 2/10 to 10/10 with attempts to move . She required mod assist to stand while NWB LLE using FWW as well as verbal cues and demonstration to keep left foot from resting on right foot. She was able to stand at bedside ~2 minutes while nursing changed bedding. BP monitored throughout session: 122/65 supine, 118/74 sitting, 134/75 standing. Pt did report lightheadedness in standing and was returned to edge of bed. M5 PT-IP Objective Assessments Start: 11/25/18 18:00 Freq: NEEDED Status: Active Protocol: Document 11/26/18 10:08 AW (Rec: 11/26/18 10:34 AW [id number]) Orientation Orientation/Cognition Level of Alertness Alert Orientation Name,Month,Place,Situation Language Function Ability No Deficits Noted Safety Awareness Decreased Safety Awareness Memory Description No Deficits Noted Comments Pt able to verbalize NWB precautions, but required verbal cues and demonstration to avoid placing left foot on top of right foot in standing. Gross Range of Motion Upper Extremity ROM Assessment Within Functional Limits Lower Extremity ROM Assessment Left Impaired Strength Upper Extremity Strength Assessment Bilaterally Impaired Lower Extremity Strength Assessment Bilaterally Impaired Comments Strength Comments UE strength 4-/5 bilaterally. RLE knee extension 5/5, 4/5 in all other muscle groups. LLE not tested. Coordination Assessment Gross Coordination Gross Coordination WNL Sensation Assessment Sensation Gross Sensation WNL Muscle Tone Muscle Tone WNL Yes M6 PT-IP Treatment Start: 11/25/18 18:00 Freq: NEEDED Status: Active Protocol: Document 11/26/18 10:08 AW (Rec: 11/26/18 10:34 AW [id number]) Physical Therapy Treatment Education Education Provided Weight Bearing Status,Safety Other Treatments Other Treatment Performed Discussed PT plan of care, NWB status, and discharge recommendations with pt and daughter, Nicky. M7 PT-IP Assessment and Plan Start: 11/25/18 18:00 Freq: NEEDED Status: Active Protocol: Document 11/26/18 10:08 AW (Rec: 11/26/18 10:34 AW [id number]) PT Summary Assessment and Plan Potential Rehabilitation Potential Good Status of Condition at Evaluation Evolving Summary Impairments Pain,ROM,Strength,Balance,Bed Mobility,Transfers,Gait, Activity Tolerance Assessment Summary Pt is a 78 yo woman with history of ESRD, COPD, recurrent c-diff infection, and CAD. Her activity tolerance has decreased over the past year with worsening health, but she was able to ambulate community distances mod independent with 4WW ~1 month ago. She was seen for PT evaluation 2 days after a GLF resulting in left iliac crest and left pubic rami fractures , managed conservatively. She required mod to max assist for bed mobility and transfers today secondary to pain and NWB status of the LLE. Pt will benefit from skilled therapy in the acute care setting to work on standing tolerance and transfers. PT recommendation is for SNF rehab when medically cleared for discharge. Goals Bed Mobility Goal Contact Guard Assistance Transfer Goal Contact Guard Assistance Days to Meet Goals 10 Frequency of Treatment Frequency Of Treatment Once a Day Treatment Plan Physical Therapy Treatment Plan Bed Mobility Training,Transfer Training,Gait Training, Therapeutic Exercise,Balance Retraining,Discharge Planning, Hot or Cold Pack,Neuromuscular Re-ed,Coordination Retraining ,Manual Therapy Recommendations To Nursing Amount of Assist Needed Mechanical Lift Discharge Recommendations PT Discharge Recommendations SNF Rehab
--- NOTE | 2018-11-26 10:45 | CM.DPC ---
Addendum entered by April Owens LPN 11/26/18 11:13: PT Amanda did confirm pt's prior level of function. She is at baseline functionally independent with basic mobility/use of 4ww and ADLs. Lives on main level of her daughter's 2 level home. Granddaughter helps with meals, daughter helps her manage her medications. Has CPAP. Pt's daughter Nicky was present during the PT session with Amanda this morning. Per Dr. Adams pt will be NWB LLE for next 2-3 months and primarily will use a w/c. PT notes the snf setting would likely focus on standing tolerance and safe transfer techniques. Original Note: DCP: continued: Case discussed in Team Rounds. UR RN Anjelica confirms OBS status continues thus far. EHR/[employer] determination yesterday agreed OBS appropriate. PT and OT attempted to see pt yesterday but her pain was too severe. She is currently only receiving vicodin for pain management. PT Amanda did see pt this morning. Dr. Olmedo will see pt today. Met now with pt and her daughter Nicky/Gage. Pt today is very alert and reports she was determined to try to work with PT today and was able to move a bit to bedside chair. PT Amanda noted that her pain did go from 2/10 to 10/10 with this attempt. Discussed the affects that OBS status is having on the d/c disposition options and both pt and Nicky were surprised. Nicky noted that Yolie, with whom pt lives, is working today (she is a education reporter for the [employer]) needs to know about this. Assured her that Yolie was informed by the UR team of this status but needs to be in on the decision making for d/c. PT recommeded SNF setting to pt and she was prepared to do this but now understands that this is only an option if paying privately for the daily rate, typically > $300 day. Other options discussed: increasing family care if possible. HH RN/OT/PT/COTTON FARMER (this pd for by Medicare) Paying for agency caregiver help a few hours a day. Obtaining whatever DME is needed to support pt in the home setting. Pt notes she lives on social security only and has very little in saving so all of this will be difficult for her. Dr. Olmedo arrived at this point and so left him to his examination of pt. P: DCP team to continue to follow for appropriate and safe d/c plan. Pt is currently Sheila [employer] only for nursing staff pt the PT note of today. OT is not available on Tuesday. OT will see pt tomorrow and will need this input to know what will be needed in the home setting in terms of DME and care.
--- NOTE | 2018-11-26 11:38 | PT.IIE ---
Surgical History (Last Reviewed 11/24/18 @ 17:47 by Ryan Olmedo MD) History of cataract removal with insertion of prosthetic lens (Resolved 04/09/01) History of cataract removal with insertion of prosthetic lens (Resolved 09/07/06) History of kidney surgery (Resolved 1959) History of YAG laser capsulotomy of lens of right eye (Resolved 04/2005) Medical History (Last Reviewed 11/24/18 @ 17:47 by Ryan Olmedo MD) Allergic rhinitis, cause unspecified (Chronic 05/18/04) Anemia, unspecified (Chronic 04/20/04) Anxiety (Chronic) Arthralgia (Chronic 07/22/04) CAD (coronary artery disease) (Chronic) Chronic sinusitis, unspecified (Chronic 05/27/04) Depression (Chronic) Dry eye syndrome (Chronic 08/12/04) Fibromyalgia affecting multiple sites (Chronic) History of renal stone (Resolved) Low ferritin level (Chronic 09/05/14) Osteopenia (Chronic 04/20/04) Raynauds syndrome (Chronic) Renal osteodystrophy (Chronic) Renal tubular acidosis (Chronic) Restless leg syndrome (Chronic) Sjoegren syndrome (Chronic) Sleep apnea (Chronic) Stage 4 chronic kidney disease (Chronic) TMJ dysfunction (Chronic) Physical Therapy Inpatient Evaluation/Re-Eval M1 PT/OT-IP Prior Functional Status Start: 11/25/18 18:00 Freq: NEEDED Status: Active Protocol: Document 11/26/18 10:08 AW (Rec: 11/26/18 10:34 AW [id number]) Medical Review Prior Functional Status Medical History Reviewed Yes Diet/Fluid Consistency Regular Communication Able to make needs known Mobility and Gait Pt was typically ambulating without assisstive device but would occasionally use a 4WW for longer community distances . She notes she used her 4WW when she visited the [employer] recently and felt it made a difference in her stability and endurance. Activities of Daily Living and IADL's Pt was independent with dressing, bathing, toileting. Her granddaughter often assists with meals and her daughter sometimes assists with medications. Prior Functional Level (Other details) Pt's activity tolerance has decreased over the past year with worsening kidney disease and COPD. She uses CPAP at home but no supplemental oxygen. Social History Household Members family Living Arrangements House Number of Floors (Floors) Two Floors Number of Stairs To Enter/Railing? 1 PARISH from carport with no railing. Pt lives with her daughter and grandchildren in a two level home, but lives on the main level with no need to access the basement Home Environment Standard Height Toilet,Walk in Shower Home Equipment Four Wheel Walker,Hand Held Shower,Grab Bars In Shower Employment Status Retired M2 PT-IP Current Condition Start: 11/25/18 18:00 Freq: NEEDED Status: Active Protocol: Document 11/26/18 10:08 AW (Rec: 11/26/18 10:34 AW [id number]) Physical Therapy Current Condition Current Condition Evaluation Date 11/26/18 Treatment Diagnosis left iliac crest and left pubic rami fractures, managed conservatively Onset Date 11/24/18 Weight Bearing Status Weight Bearing Status Non-Weight Bearing Allowed Weight Bearing Amount (enter % NWB LLE or #) (%) M3 PT-IP Subjective Start: 11/25/18 18:00 Freq: NEEDED Status: Active Protocol: Document 11/26/18 10:08 AW (Rec: 11/26/18 10:34 AW [id number]) Subjective Physical Therapy Visit Type Type Initial Evaluation Visit Start Time 09:20 Visit Stop Time 10:03 Total Visit Minutes 43 Number of CASINO CASHIER MANAGER Visits 0 Physical Therapy Visit Comments Patient Comments Pt states she is experiencing a lot of pain with any movement, but is willing to work with PT today Patient Goals I want to get be able to move without pain Therapy Pain Assessment Pain When Pain Assessed During Mobility Pain Present Pain Present Pain Reported Location Left Hip Intensity 10 Scale Used 2/10 at rest, 10/10 with bed mobility Pain Management Techniques Modification of Treatment,Re- positioning,Timing of Activity with Medications M4 PT-IP Mobility and Gait Start: 11/25/18 18:00 Freq: NEEDED Status: Active Protocol: Document 11/26/18 10:08 AW (Rec: 11/26/18 10:34 AW [id number]) PT-Bed Mobility Assessment Supine to Sit Supine to Sit Moderate Assistance,1 Person Assistance,Head of Bed Elevated,Bedrails Sit to Supine Sit to Supine Moderate Assistance,1 Person Assistance Scooting Scooting to Edge of Bed Minimal Assistance Scooting Up and Down in Bed Minimal Assistance PT-Transfer Assessment Sit to and From Stand Sit to and from Stand Maximum Assistance,1 Person Assistance,Use of Upper Extremities Equipment Transfer Assistive Device Gait Belt,Front Wheeled Walker Orthotic/Prosthetic Devices or Brace: No Comments Mobility Comments Pt required max assist for sit <> stand using FWW. She reports immediate increase in pain from resting level 2/10 to 10/10 with attempts to move . She required mod assist to stand while NWB LLE using FWW as well as verbal cues and demonstration to keep left foot from resting on right foot. She was able to stand at bedside ~2 minutes while nursing changed bedding. BP monitored throughout session: 122/65 supine, 118/74 sitting, 134/75 standing. Pt did report lightheadedness in standing and was returned to edge of bed. M5 PT-IP Objective Assessments Start: 11/25/18 18:00 Freq: NEEDED Status: Active Protocol: Document 11/26/18 10:08 AW (Rec: 11/26/18 10:34 AW [id number]) Orientation Orientation/Cognition Level of Alertness Alert Orientation Name,Month,Place,Situation Language Function Ability No Deficits Noted Safety Awareness Decreased Safety Awareness Memory Description No Deficits Noted Comments Pt able to verbalize NWB precautions, but required verbal cues and demonstration to avoid placing left foot on top of right foot in standing. Gross Range of Motion Upper Extremity ROM Assessment Within Functional Limits Lower Extremity ROM Assessment Left Impaired Strength Upper Extremity Strength Assessment Bilaterally Impaired Lower Extremity Strength Assessment Bilaterally Impaired Comments Strength Comments UE strength 4-/5 bilaterally. RLE knee extension 5/5, 4/5 in all other muscle groups. LLE not tested. Coordination Assessment Gross Coordination Gross Coordination WNL Sensation Assessment Sensation Gross Sensation WNL Muscle Tone Muscle Tone WNL Yes M6 PT-IP Treatment Start: 11/25/18 18:00 Freq: NEEDED Status: Active Protocol: Document 11/26/18 10:08 AW (Rec: 11/26/18 10:34 AW [id number]) Physical Therapy Treatment Education Education Provided Weight Bearing Status,Safety Other Treatments Other Treatment Performed Discussed PT plan of care, NWB status, and discharge recommendations with pt and daughter, Nicky. M7 PT-IP Assessment and Plan Start: 11/25/18 18:00 Freq: NEEDED Status: Active Protocol: Document 11/26/18 10:08 AW (Rec: 11/26/18 10:34 AW [id number]) PT Summary Assessment and Plan Potential Rehabilitation Potential Good Status of Condition at Evaluation Evolving Summary Impairments Pain,ROM,Strength,Balance,Bed Mobility,Transfers,Gait, Activity Tolerance Assessment Summary Pt is a 78 yo woman with history of ESRD, COPD, recurrent c-diff infection, and CAD. Her activity tolerance has decreased over the past year with worsening health, but she was able to ambulate community distances mod independent with 4WW ~1 month ago. She was seen for PT evaluation 2 days after a GLF resulting in left iliac crest and left pubic rami fractures , managed conservatively. She required mod to max assist for bed mobility and transfers today secondary to pain and NWB status of the LLE. Pt will benefit from skilled therapy in the acute care setting to work on standing tolerance and transfers. PT recommendation is for SNF rehab when medically cleared for discharge. Goals Bed Mobility Goal Contact Guard Assistance Transfer Goal Contact Guard Assistance Days to Meet Goals 10 Frequency of Treatment Frequency Of Treatment Twice a Day Treatment Plan Physical Therapy Treatment Plan Bed Mobility Training,Transfer Training,Gait Training, Therapeutic Exercise,Balance Retraining,Discharge Planning, Hot or Cold Pack,Neuromuscular Re-ed,Coordination Retraining ,Manual Therapy Recommendations To Nursing Amount of Assist Needed Mechanical Lift Discharge Recommendations PT Discharge Recommendations SNF Rehab
[2018-11-26] MEDS: ENOXAPARIN 30 MG/0.3 ML SYRINGE SUBCUT (13:22)
--- NOTE | 2018-11-26 14:40 | PM.PN.1 ---
Subjective Subjective Date Patient Seen: 11/26/18 Time Patient Seen: 14:40 Interval history: Trace notes that she is doing okay she does have significant pain when she attempts to transfer out of bed. She is resting comfortably without significant pain. Exam Vital Signs (past 8 hours): - 11/26/18 09:05 Temperature 98.2 F Pulse Rate 82 Respiratory Rate 20 Blood Pressure 148/63 H Pulse Oximetry 100 Oxygen Delivery Method Room Air Oxygen Flow Rate 1 Narrative Exam Narrative: No pain with gentle range of motion bilateral hips, tenderness to palpation over the symphysis pubis and anterior pelvis, bilateral casts are soft with adequate capillary refill in bilateral lower extremities and able to fire her toe flexors and extensors and hip flexors. Objective Labs Result Diagrams: 11/26/18 08:15 11/26/18 08:15 Labs: Laboratory Results - last 24 hr 11/26/18 11/26/18 08:15 08:15 WBC 7.7 RBC 3.07 L Hgb 10.5 L Hct 30.4 L MCV 99.1 MCH 34.2 H MCHC 34.5 RDW 13.5 Plt Count 157 Neut % (Auto) 74.6 Lymph % (Auto) 13.4 L Wilkinson % (Auto) 8.0 Eos % (Auto) 3.2 Baso % (Auto) 0.8 Neut # (Auto) 5700 Lymph # (Auto) 1000 L Wilkinson # (Auto) 600 Eos # (Auto) 200 Baso # (Auto) 100 Sodium 142 Potassium 3.9 Chloride 117 H Carbon Dioxide 17 L BUN 25 H Creatinine 1.90 H Estimated GFR 25.5 L BUN/Creatinine Ratio 13.2 Glucose 86 Calcium 9.2 Assessment & Plan Assessment & Plan narrative: Pelvic fracture doing reasonably well with conservative care but having quite difficulty mobilizing. I have recommended that she continue to work on getting out of bed with physical therapy and strongly encouraged her to progressively mobilize. She can go to rehab when she is medically stable. Quality VTE Deep Vein Thrombosis/Pulmonary Embolism Present on Admission: No
--- NOTE | 2018-11-26 16:04 | PT.IPTN ---
Physical Therapy Treatment Note M2 PT-IP Current Condition Start: 11/25/18 18:00 Freq: NEEDED Status: Active Protocol: Document 11/26/18 10:08 AW (Rec: 11/26/18 10:34 AW [id number]) Physical Therapy Current Condition Current Condition Evaluation Date 11/26/18 Treatment Diagnosis left iliac crest and left pubic rami fractures, managed conservatively Onset Date 11/24/18 Weight Bearing Status Weight Bearing Status Non-Weight Bearing Allowed Weight Bearing Amount (enter % NWB LLE or #) (%) M3 PT-IP Subjective Start: 11/25/18 18:00 Freq: NEEDED Status: Active Protocol: Document 11/26/18 15:10 CLB (Rec: 11/26/18 16:04 CLB [id number]) Subjective Physical Therapy Visit Type Type Treatment Note Visit Start Time 15:10 Visit Stop Time 15:35 Total Visit Minutes 25 Number of SOCIAL STUDIES TEACHER Visits 1 Physical Therapy Visit Comments Patient Comments Pt wanting to try and stand again, Pt stated she was encourage with her progress during PT this morning. Therapy Pain Assessment Pain When Pain Assessed During Mobility Pain Present Pain Present Pain Reported Location Left Hip Intensity 8 Scale Used 6/10 sitting at side of bed and bed mobility, 8/10 during standing. Pain Management Techniques Modification of Treatment,Re- positioning,Timing of Activity with Medications M4 PT-IP Mobility and Gait Start: 11/25/18 18:00 Freq: NEEDED Status: Active Protocol: Document 11/26/18 15:10 CLB (Rec: 11/26/18 16:04 CLB [id number]) PT-Bed Mobility Assessment Supine to Sit Supine to Sit Moderate Assistance,1 Person Assistance,Head of Bed Elevated,Bedrails Sit to Supine Sit to Supine Moderate Assistance,1 Person Assistance Scooting Scooting to Edge of Bed Minimal Assistance Scooting Up and Down in Bed Minimal Assistance PT-Transfer Assessment Sit to and From Stand Sit to and from Stand Moderate Assistance,1 Person Assistance,Use of Upper Extremities Equipment Orthotic/Prosthetic Devices or Brace: No Comments Mobility Comments Pt BP in sitting 128/70 with c /o dizziness. Pt required Mod A x1 to EOB and sit<>stand. Pt has increased pain during bed mobility and sitting at EOB 6 /10 and 8/10 during standing. Pt was able to stand for ~2 minutes x2 Mod A with increased pain to 8/10. Pt with initial reminder, was able to perform NWB on LLE and she was able to keep foot off floor. M5 PT-IP Objective Assessments Start: 11/25/18 18:00 Freq: NEEDED Status: Active Protocol: Document 11/26/18 10:08 AW (Rec: 11/26/18 10:34 AW [id number]) Orientation Orientation/Cognition Level of Alertness Alert Orientation Name,Month,Place,Situation Language Function Ability No Deficits Noted Safety Awareness Decreased Safety Awareness Memory Description No Deficits Noted Comments Pt able to verbalize NWB precautions, but required verbal cues and demonstration to avoid placing left foot on top of right foot in standing. Gross Range of Motion Upper Extremity ROM Assessment Within Functional Limits Lower Extremity ROM Assessment Left Impaired Strength Upper Extremity Strength Assessment Bilaterally Impaired Lower Extremity Strength Assessment Bilaterally Impaired Comments Strength Comments UE strength 4-/5 bilaterally. RLE knee extension 5/5, 4/5 in all other muscle groups. LLE not tested. Coordination Assessment Gross Coordination Gross Coordination WNL Sensation Assessment Sensation Gross Sensation WNL Muscle Tone Muscle Tone WNL Yes M6 PT-IP Treatment Start: 11/25/18 18:00 Freq: NEEDED Status: Active Protocol: Document 11/26/18 10:08 AW (Rec: 11/26/18 10:34 AW [id number]) Physical Therapy Treatment Education Education Provided Weight Bearing Status,Safety Other Treatments Other Treatment Performed Discussed PT plan of care, NWB status, and discharge recommendations with pt and daughter, M7 PT-IP Assessment and Plan Start: 11/25/18 18:00 Freq: NEEDED Status: Active Protocol: Document 11/26/18 15:10 CLB (Rec: 11/26/18 16:04 CLB [id number]) PT Summary Assessment and Plan Potential Rehabilitation Potential Good Status of Condition at Evaluation Evolving Summary Impairments Pain,ROM,Strength,Balance,Bed Mobility,Transfers,Gait, Activity Tolerance Assessment Summary Pt c/o increased SOB during mobility. Pt was able to stand ~2 minutes x2 and was able to follow NWB of LLE during stand. Pt would benefit from SNF rehab to improve activity tolerance and functional mobility. Goals Bed Mobility Goal Contact Guard Assistance Transfer Goal Contact Guard Assistance Days to Meet Goals 10 Frequency of Treatment Frequency Of Treatment Twice a Day Treatment Plan Physical Therapy Treatment Plan Bed Mobility Training,Transfer Training,Gait Training, Therapeutic Exercise,Balance Retraining,Discharge Planning, Hot or Cold Pack,Neuromuscular Re-ed,Coordination Retraining ,Manual Therapy Recommendations To Nursing Amount of Assist Needed Mechanical Lift Discharge Recommendations PT Discharge Recommendations SNF Rehab
[2018-11-26] MEDS: SERTRALINE 50 MG TABLET 200 MG PO (21:26)
[2018-11-26] MEDS: ACETAMINOPHEN 325 MG TABLET 650 MG PO (21:27)
[2018-11-27] VITALS (7 sets, daily range): BP systolic 103–143; BP diastolic 57–73; PULSE 74–86; RESP 16–18; TEMP 36.4–37.2; O2SAT 94–99
[2018-11-27] MEDS: FIDAXOMICIN 200 MG TABLET PO ×2 (08:40→22:18)
[2018-11-27] MEDS: ENOXAPARIN 30 MG/0.3 ML SYRINGE SUBCUT (08:40)
[2018-11-27] MEDS: SODIUM CHLORIDE 0.9% FLUSH 10 ML IV ×2 (08:41→22:14)
[2018-11-27] MEDS: HYDROCODONE/ACET 5/325 TABLET 1 TAB PO ×2 (08:41→14:55)
--- NOTE | 2018-11-27 10:30 | PT.IPTN ---
Physical Therapy Treatment Note M2 PT-IP Current Condition Start: 11/25/18 18:00 Freq: NEEDED Status: Active Protocol: Document 11/26/18 10:08 AW (Rec: 11/26/18 10:34 AW [id number]) Physical Therapy Current Condition Current Condition Evaluation Date 11/26/18 Treatment Diagnosis left iliac crest and left pubic rami fractures, managed conservatively Onset Date 11/24/18 Weight Bearing Status Weight Bearing Status Non-Weight Bearing Allowed Weight Bearing Amount (enter % NWB LLE or #) (%) M3 PT-IP Subjective Start: 11/25/18 18:00 Freq: NEEDED Status: Active Protocol: Document 11/27/18 09:50 CLB (Rec: 11/27/18 11:21 CLB [email or web address]) Subjective Physical Therapy Visit Type Type Treatment Note Visit Start Time 09:50 Visit Stop Time 10:29 Total Visit Minutes 39 Number of HIM DIRECTOR Visits 2 Physical Therapy Visit Comments Patient Comments Pt willing to transfer to chair. Therapy Pain Assessment Pain When Pain Assessed During Mobility Pain Present Pain Present Pain Reported Location Left Hip Intensity 8 Scale Used 4/10 with sitting, 8/10 during transfer Pain Management Techniques Modification of Treatment,Re- positioning,Timing of Activity with Medications M4 PT-IP Mobility and Gait Start: 11/25/18 18:00 Freq: NEEDED Status: Active Protocol: Document 11/27/18 09:50 CLB (Rec: 11/27/18 11:21 CLB [id number]) PT-Bed Mobility Assessment Supine to Sit Supine to Sit Standby Assistance,1 Person Assistance,Head of Bed Elevated,Bedrails Scooting Scooting to Edge of Bed Standby Assistance PT-Transfer Assessment Sit to and From Stand Sit to and from Stand Minimal Assistance,1 Person Assistance Equipment Transfer Assistive Device Gait Belt,Front Wheeled Walker Orthotic/Prosthetic Devices or Brace: No Transfers Transfer Destination Chair,Bedside Commode Transfer Technique single leg stand pivot Transfer Ability Level of Assist Minimal Assistance,2 Person Assistance,Use of Upper Extremities Comments Mobility Comments Pt required SBA to EOB, Min A sit-stand with FWW. Pt able to transfer to chair>BSC>chair requiring cues to pivot on RLE and use arms. Pt able to perform all pericare. Gait Assessment Comments Gait Comments unable Stair Climbing Assessment Comments Stair Climbing Comments unable M5 PT-IP Objective Assessments Start: 11/25/18 18:00 Freq: NEEDED Status: Active Protocol: Document 11/26/18 10:08 AW (Rec: 11/26/18 10:34 AW [id number]) Orientation Orientation/Cognition Level of Alertness Alert Orientation Name,Month,Place,Situation Language Function Ability No Deficits Noted Safety Awareness Decreased Safety Awareness Memory Description No Deficits Noted Comments Pt able to verbalize NWB precautions, but required verbal cues and demonstration to avoid placing left foot on top of right foot in standing. Gross Range of Motion Upper Extremity ROM Assessment Within Functional Limits Lower Extremity ROM Assessment Left Impaired Strength Upper Extremity Strength Assessment Bilaterally Impaired Lower Extremity Strength Assessment Bilaterally Impaired Comments Strength Comments UE strength 4-/5 bilaterally. RLE knee extension 5/5, 4/5 in all other muscle groups. LLE not tested. Coordination Assessment Gross Coordination Gross Coordination WNL Sensation Assessment Sensation Gross Sensation WNL Muscle Tone Muscle Tone WNL Yes M6 PT-IP Treatment Start: 11/25/18 18:00 Freq: NEEDED Status: Active Protocol: Document 11/26/18 10:08 AW (Rec: 11/26/18 10:34 AW [id number]) Physical Therapy Treatment Education Education Provided Weight Bearing Status,Safety Other Treatments Other Treatment Performed Discussed PT plan of care, NWB status, and discharge recommendations with pt and daughter, Nikki. [email or web address] PT-IP Assessment and Plan Start: 11/25/18 18:00 Freq: NEEDED Status: Active Protocol: Document 11/27/18 09:50 CLB (Rec: 11/27/18 11:21 CLB [email or web address]) PT Summary Assessment and Plan Summary Impairments Pain,ROM,Strength,Balance,Bed Mobility,Transfers,Gait, Activity Tolerance Assessment Summary Pt continues to have increased pain 8/10 with all mobiliy and 4/10 when sitting on BSC or chair. Pt continues to c/o dizziness which subsides if pt takes rest break. Pt needs cues to keep eyes open during mobility. Pt was able to perform a single leg stand pivot on RLE only to prevent bearing weight on LLE. Pt was able to with Min A x2 to transfer to chair>BSC>chair. Pt is able to recall her precautions and is able to perform stand pivot on RLE only during transfer. Pt may be able to d/c home if she has 24/7 assist and HH PT,OT and bath aide. Pts daughter Rosetta may be able to stay with her for a week after d/c. Goals Bed Mobility Goal Contact Guard Assistance Transfer Goal Contact Guard Assistance Days to Meet Goals 10 Frequency of Treatment Frequency Of Treatment Twice a Day Treatment Plan Physical Therapy Treatment Plan Bed Mobility Training,Transfer Training,Gait Training, Therapeutic Exercise,Balance Retraining,Discharge Planning, Hot or Cold Pack,Neuromuscular Re-ed,Coordination Retraining ,Manual Therapy Recommendations To Nursing Amount of Assist Needed Mechanical Lift Discharge Recommendations PT Discharge Recommendations Home with 11/10 Assist,Home Health,SNF Rehab Other Discharge Recommendations with PT,OT and bath aide. Equipment Needed for Home Before FWW, WC, BSC Discharge
--- NOTE | 2018-11-27 10:31 | OT.IP.EVAL ---
Past Medical History (Last Reviewed 11/24/18 @ 17:47 by Ryan Olmedo MD) Allergic rhinitis, cause unspecified (Chronic 05/18/04) Anemia, unspecified (Chronic 04/20/04) Anxiety (Chronic) Arthralgia (Chronic 07/22/04) CAD (coronary artery disease) (Chronic) Chronic sinusitis, unspecified (Chronic 05/27/04) Depression (Chronic) Dry eye syndrome (Chronic 08/12/04) Fibromyalgia affecting multiple sites (Chronic) History of renal stone (Resolved) Low ferritin level (Chronic 09/05/14) Osteopenia (Chronic 04/20/04) Raynauds syndrome (Chronic) Renal osteodystrophy (Chronic) Renal tubular acidosis (Chronic) Restless leg syndrome (Chronic) Sjoegren syndrome (Chronic) Sleep apnea (Chronic) Stage 4 chronic kidney disease (Chronic) TMJ dysfunction (Chronic) Surgical History (Last Reviewed 11/24/18 @ 17:47 by Ryan Olmedo MD) History of cataract removal with insertion of prosthetic lens (Resolved 04/09/01) History of cataract removal with insertion of prosthetic lens (Resolved 09/07/06) History of kidney surgery (Resolved 1959) History of YAG laser capsulotomy of lens of right eye (Resolved 04/2005) Occupational Therapy Inpatient Evaluation/Re-Eval M1 PT/OT-IP Prior Functional Status Start: 11/25/18 18:00 Freq: NEEDED Status: Active Protocol: Document 11/27/18 10:31 LAKESHA (Rec: 11/27/18 17:02 [facility] [id number]) Medical Review Prior Functional Status Medical History Reviewed Yes Diet/Fluid Consistency Regular Communication WNL Mobility and Gait Pt was typically ambulating without assistive device but would occasionally use a 4WW for longer community distances . She notes she used her 4WW when she visited [place] recently and felt it made a difference in her stability and endurance. Activities of Daily Living and IADL's Pt was independent with eating , grooming,dressing, bathing, toileting. Her granddaughter often assists with meals and her daughter sometimes assists with medications. Prior Functional Level (Other details) Pt's activity tolerance has decreased over the past year with worsening kidney disease and COPD. She uses CPAP at home but no supplemental oxygen. Social History Household Members family Living Arrangements House Number of Floors (Floors) Two Floors Number of Stairs To Enter/Railing? 1 PARISH from carport with no railing. Pt lives with her daughter and grandchildren in a two level home, but lives on the main level with no need to access the basement Home Environment Standard Height Toilet,Walk in Shower Home Equipment Four Wheel Walker,Hand Held Shower,Grab Bars In Shower Employment Status Retired Additional Social History Comment Pt's daughter works fuller brush worker and granddaughter goes to [employer] M2 OT-IP Current Condition Start: 11/25/18 17:04 Freq: Status: Active Protocol: Document 11/27/18 10:31 PJM (Rec: 11/27/18 17:02 [facility] [id number]) Occupational Therapy Current Condition Current Condition Evaluation Date 11/27/18 Treatment Diagnosis decreased self care, mobility S/P non operative L pelvic fx Diagnosis Onset Date 11/24/18 Weight Bearing Status Weight Bearing Status Non-Weight Bearing Allowed Weight Bearing Amount (enter % LLE or #) (%) M3 OT- IP Subjective and Pain Start: 11/25/18 17:04 Freq: Status: Active Protocol: Document 11/27/18 10:31 PJM (Rec: 11/27/18 17:02 [facility] [id number]) OT- Subjective Occupational Therapy Visit Type Type Initial Evaluation Visit Start Time 09:50 Visit Stop Time 10:31 Total Visit Minutes 41 Notes Cot x with P.T. for first time transfer to chair. Occupational Therapy Visit Comments Patient Comments This hurts a lot. Patient/Caregiver Goals to return to indep living with her daughter OT Pain Assessment Pain When Pain Assessed During Mobility Pain Present Pain Present Pain Reported Location Left Hip Intensity 8 Scale Used Numeric (1 - 10) Description Aching,Acute Pain Behaviors Facial Grimacing,Guarding, Wincing Management Techniques Distraction,Re-positioning, Timing of Activity with Medications M4 OT- IP ADL's Start: 11/25/18 17:04 Freq: Status: Active Protocol: Document 11/27/18 10:31 PJM (Rec: 11/27/18 17:02 [facility] [id number]) OT [id number] General Evaluation Self-Feeding Ability Independent OT ADL-Grooming General Evaluation Grooming Ability Standby Assistance Comments OT Grooming Comments seated in chair OT ADL-Oral Care General Eval Oral Care Ability Standby Assistance Areas of Assistance Retrieving/Set-Up of Items Comments Oral Care Comments seated in chair OT ADL-Dressing General Eval Upper Body Dressing Ability Standby Assistance Lower Body Dressing Ability Total Assistance Areas Needing Assistance Underpants/Brief,Socks,Shoes OT ADL-Toileting General Evaluation Toileting Ability Standby Assistance Areas Needing Assistance Perform Perineal Hygiene Devices Toileting Assistive Devices Commode OT ADL-Bathing Comments OT Bathing Comments to be assessed as activity tolerance improves M5 OT- IP IADL's Start: 11/25/18 17:04 Freq: Status: Active Protocol: Document 11/27/18 10:31 PJM (Rec: 11/27/18 17:02 [facility] [id number]) OT-Instrumental Activities of Daily Living Deficits IADL Deficits Identified Deficits Home Safety Awareness Awareness of Need for Assistance at Home Good Awareness Ability to Problem Solve Emergency Able to Problem Solve Situations Medication Management Medication Management No Deficits Identified Money Management Money Management No Deficits Identified Meal Preparation Meal Preparation Caregiver Provides Supervision Meal Preparation Comments family provides assist at home Damper Worker Damper Worker Caregiver Provides Assist Damper Worker Comments family provides assist at home Driving Driving Caregiver Provides Assist Driving Comments pt does not drive M6 OT- IP Functional Cognition Start: 11/25/18 17:04 Freq: Status: Active Protocol: Document 11/27/18 10:31 PJM (Rec: 11/27/18 17:02 [facility] [id number]) Cognitive Factors Limiting Selfcare Function Cognitive Ability Level of Alertness Alert Patient Orientation Name,Age,Birthday,Month,Date, Year,Day of Week,Place, Situation Attention Span Ability Capable of Focused Attention, Capable of Sustained Attention Ability to Follow Commands Able to Follow One Step Commands Memory Description No Deficits Noted Safety Awareness No Deficits Noted Problem Solving Ability No deficits Noted Cognitive Comments Cognitive Assessment Comments Cognition appears WNL OT- Vision and Hearing OT- Hearing Assessment OT- Hearing Assessment WFL OT- Vision Assessment Visual Acuity WFL,Glasses For Reading Vision Assessment Comments Pt denies any recent changes M7 OT- IP Mobility and Balance Start: 11/25/18 17:04 Freq: Status: Active Protocol: Document 11/27/18 10:31 PJM (Rec: 11/27/18 17:02 [facility] [id number]) OT- Bed Mobility Assessment Rolling Level of Assistance Minimal Assistance,1 Person Assistance,Head of Bed Elevated,Bedrails Supine to Sit Supine to Sit Assist Minimal Assistance,1 Person Assistance,Head of Bed Elevated,Bedrails Scooting Scooting to Edge of Bed Minimal Assistance,1 Person Assistance OT-Transfer Assessment Sit to and From Stand Sit to and from Stand Minimal Assistance,2 Person Assistance,Use of Upper Extremities Transfers Transfer Ability Minimal Assistance,2 Person Assistance,Use of Upper Extremities Technique Transfer Destination Bedside Commode,Chair Transfer Technique Stand Step Pivot Devices Transfer Assistive Devices Gait Belt,Front Wheeled Walker Comments Mobility Comments Pt initially mod assist for sit to stand and transfer to chair, pt did better with transfer to [facility] [place] min assist with better pivoting on R foot noted. OT- Gait Assessment Comments Gait Ability Comments did not occur OT- Balance Assessment Sitting Balance and Reactions Static Sitting Balance Ability Good Dynamic Sitting Balance Ability Good Standing Balance and Reactions Static Standing Balance Ability Fair Dynamic Standing Balance Ability Fair Comments Other Balance Tests/Deviations/Treatment with FWW, NWB LLE : M8 OT- IP Objective Assessments Start: 11/25/18 17:04 Freq: Status: Active Protocol: Document 11/27/18 10:31 PJ (Rec: 11/27/18 17:02 [facility] [id number]) OT Gross Range of Motion Upper Extremity Range of Motion Assessment Within Functional Limits OT Strength Upper Extremity Strength Assessment Within Functional Limits Hand Boiler Operator Strength Hand Dominance Right OT- Coordination Assessment Comments Coordination Comments BUE WNL OT-Muscle Tone Assessment Muscle Tone WNL Yes OT Sensation Assessment Comments Summary Comments BUE WNL M9 OT- IP Assessment and Plan Start: 11/25/18 17:04 Freq: Status: Active Protocol: Document 11/27/18 10:31 PJM (Rec: 11/27/18 17:02 [facility] [id number]) OT Summary Assessment and Plan Potential Rehabilitation Potential Excellent Analytic Complexity at Evaluation Low Summary OT Impairments Pain,Strength,Balance,Dressing ,Bathing,Toilet Transfers, Shower Transfers Assessment Summary Low complexity OT assessment completed on this 78 yr old female admitted s/p fall at home with L superior/inferior pubic ramus and L iliac crest fx fx's. PMHX includes dizziness. Pt is NWB on LLE at present. Pt is alert, oriented with very good participation and effort this session. She presents with significant performance deficits in bed mobility, all functional mobility/transfers and pt has not yet ambulated. SHe also has decreased performance in standing grooming, lower body dressing, bathing and toileting. Pt currently needs assist during all waking hours, so recommend home with 24 hr family assist and HH OT, PT and bath aide vs short term SNF for further rehab services . Pt will benefit from OT services here to address the goals below. Goals Grooming Goal Independent Dressing Goal Minimal Assistance,Long Handled Shoe Horn,Program Management Manager,Sock Aid Toileting Goal Independent Bathing Goal Minimal Assistance,Grab Bars, Hand Held Shower Sprayer Toilet Transfer Goal Standby Assistance,Bedside Commode Shower Transfer Goal Minimal Assistance,Walk-in Shower,Shower Chair,Grab Bars Patient/Caregiver Education Goal Demonstrate Post-Op Precautions,Demonstrate Energy Conservation and Pacing, Caregiver Independent Assisting Patient OT-Other Goals Grooming to be done seated in chair. Days to Meet Goals 5 Frequency of Treatment Frequency Of Treatment Once a Day Treatment Plan OT Treatment Plan ADL Training,Functional Mobility,Patient/Family Education,Discharge Planning Discharge Recommendations OT Discharge Recommendations SNF Rehab Other Discharge Recommendations vs home with 24/7 assist and HH PT, OT, bath aide Home Equipment Needs FWW, BSC, W/C (family to borrow from [employer]
--- NOTE | 2018-11-27 11:10 | PC.NURSE ---
Patient alert, oriented, rates to left groin 08/28 given one norco for pain at 0845. Patient able to stand and pivot to BSC with PT and OT. Then assisted to chair, bed alarm on.
--- NOTE | 2018-11-27 11:51 | DIET.PN ---
Dietary Progress Note Assessment: 78y F c MNA score 9 (at risk for malnutrition) reporting moderate decrease in PO intake and wt loss. Pt is overwhelmed c recent health happenings past 6mo. Since Joaquin has had reduced kidney fxn, chronic c.diff c diarrhea, and just suffered GLF c pelvic fracture resulting in this hospital stay. Pt appears malnourished, mod to severe system wide muscle and fat depletion, BMI of 20.0 (low for age) which may be even lower r/t retained fluid. Pt has dentures and Sjorgens syndrome, both affecting her ability to eat food in addition to renal diet restrictions. POs in hospital are 50% or less, pt expresses little appetite, difficulty eating even foods she thinks would be ok (renal smoothies, scrambled eggs, anguillan muffin) r/t seeds stuck in teeth, too dry, or not appropriate for renal health. 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 Interventions: Modify meal trays to 1/2 servings, everything extra moist recc OP nutrition consult for CKD and c.diff, recc supp Culturelle for c.diff This RD feels pt needs support to rebound from this hospital stay r/t comorbidities and difficulty c wt retention on restricted diet, plus now, mobility impairment. Monitoring/Evaluations: POs, wt, assoc. labs
--- NOTE | 2018-11-27 15:35 | PM.PNPO.1 ---
Subjective Subjective Date Patient Seen: 11/27/18 Time Patient Seen: 15:35 Interval history: Patient's pain is mild at rest. She is having more moderate to severe pain with movement. Denies fever chills. No nausea vomiting. Patient does live alone. Patient's daughter does live locally however works a lot of hours. Exam Vital Signs (past 8 hours): - 11/27/18 08:58 11/27/18 10:01 11/27/18 12:00 Temperature 98.8 F 98.3 F Pulse Rate 81 86 Respiratory Rate 16 16 Blood Pressure 143/73 H 103/57 L Pulse Oximetry 98 96 97 Oxygen Delivery Method Room Air Oxygen Flow Rate 0 Narrative Exam Narrative: 78-year-old female sitting comfortably in bedside chair in no apparent distress. Motor functions intact bilateral lower extremities. Both legs are warm and dry. Diminished sensation to light touch bilateral lower extremities secondary to history of peripheral neuropathy. Objective Labs Result Diagrams: 11/26/18 08:15 11/26/18 08:15 Quality VTE Deep Vein Thrombosis/Pulmonary Embolism Present on Admission: No
--- NOTE | 2018-11-27 15:38 | P.PN_ITS ---
Subjective Subjective Date Patient Seen: 11/27/18 Time Patient Seen: 15:38 Interval history: Patient's pain mild at rest. Patient has pain moderate to severe with movement of her lower extremities. Denies fever chills. No nausea vomiting. Patient does live alone. Her daughter does live locally however works a lot of hours. Exam Vital Signs (past 8 hours): - 11/27/18 08:58 11/27/18 10:01 11/27/18 12:00 Temperature 98.8 F 98.3 F Pulse Rate 81 86 Respiratory Rate 16 16 Blood Pressure 143/73 H 103/57 L Pulse Oximetry 98 96 97 Oxygen Delivery Method Room Air Oxygen Flow Rate 0 Narrative Exam Narrative: 78-year-old female resting comfortably in bedside chair in no apparent distress. Motor functions intact to the distal bilateral lower extremities. Sensation slightly diminished bilateral lower extremities secondary to history of peripheral neuropathy. Both legs are warm and dry. Objective Labs Result Diagrams: 11/26/18 08:15 11/26/18 08:15 Assessment & Plan Assessment & Plan narrative: Per Dr. Adams 11/24/18 Patient has a minimally displaced fractures of the superior and inferior pubic rami she also has a left iliac crest fracture that extends into the anterior SI joint in an LC type pattern without displacement of the SI joint. Discussed with the patient that this fracture is nondisplaced and can be treated non operatively but will require weight-bearing protection. I have advised the patient be nonweightbearing on the left lower extremity in anticipate this for 6 weeks with progression to toe-touch and beyond after that but a total of 6-12 w eeks of protected weight-bearing. We also discussed that a pelvis fractures can have a higher risk of DVT or PE and recommend DVT prophylaxis per her admitting team. We discussed that no surgery is indicated at this time. The patient will have follow-up x-rays in 7-10 days with inlet and outlet and AP pelvis views if there is no displacement will continue conservative treatment. Anticipate pat ient requiring senior living care as will be mostly transfers and wheelchair chair for the next 2-3 months. Patient understands and agrees with the plan. Quality VTE Deep Vein Thrombosis/Pulmonary Embolism Present on Admission: No
--- NOTE | 2018-11-27 16:49 | PT.IPTN ---
Physical Therapy Treatment Note M2 PT-IP Current Condition Start: 11/25/18 18:00 Freq: NEEDED Status: Active Protocol: Document 11/26/18 10:08 AW (Rec: 11/26/18 10:34 AW [id number]) Physical Therapy Current Condition Current Condition Evaluation Date 11/26/18 Treatment Diagnosis left iliac crest and left pubic rami fractures, managed conservatively Onset Date 11/24/18 Weight Bearing Status Weight Bearing Status Non-Weight Bearing Allowed Weight Bearing Amount (enter % NWB LLE or #) (%) M3 PT-IP Subjective Start: 11/25/18 18:00 Freq: NEEDED Status: Active Protocol: Document 11/27/18 15:56 LJ (Rec: 11/27/18 16:48 LJ [id number]) Subjective Physical Therapy Visit Type Type Treatment Note Visit Start Time 15:56 Visit Stop Time 16:37 Total Visit Minutes 41 Number of VIBRATOR OPERATOR Visits 3 Physical Therapy Visit Comments Patient Comments Pt willing to transfer to bed. Therapy Pain Assessment Pain When Pain Assessed During Mobility Pain Present Pain Present Pain Reported M4 PT-IP Mobility and Gait Start: 11/25/18 18:00 Freq: NEEDED Status: Active Protocol: Document 11/27/18 15:56 LJ (Rec: 11/27/18 16:48 LJ [id number]) PT-Bed Mobility Assessment Rolling Type of Rolling Roll to Left Scooting Scooting Up and Down in Bed Minimal Assistance PT-Transfer Assessment Equipment Transfer Assistive Device Gait Belt,Front Wheeled Walker Orthotic/Prosthetic Devices or Brace: No Transfers Transfer Destination Bed,Bedside Commode Transfer Ability Level of Assist Minimal Assistance,Use of Upper Extremities Comments Mobility Comments Pt was able to scoot to edge of chair with min assist of LLE using pad. SBA for standing on RLE. Pt was able to pivot on RLE 2' to BSC. then 3' to bed. SBA for pivoting. Pt required min assist with LEs to get back into bed. Stair Climbing Assessment Comments Stair Climbing Comments unable M5 PT-IP Objective Assessments Start: 11/25/18 18:00 Freq: NEEDED Status: Active Protocol: Document 11/26/18 10:08 AW (Rec: 11/26/18 10:34 AW [id number]) Orientation Orientation/Cognition Level of Alertness Alert Orientation Name,Month,Place,Situation Language Function Ability No Deficits Noted Safety Awareness Decreased Safety Awareness Memory Description No Deficits Noted Comments Pt able to verbalize NWB precautions, but required verbal cues and demonstration to avoid placing left foot on top of right foot in standing. Gross Range of Motion Upper Extremity ROM Assessment Within Functional Limits Lower Extremity ROM Assessment Left Impaired Strength Upper Extremity Strength Assessment Bilaterally Impaired Lower Extremity Strength Assessment Bilaterally Impaired Comments Strength Comments UE strength 4-/5 bilaterally. RLE knee extension 5/5, 4/5 in all other muscle groups. LLE not tested. Coordination Assessment Gross Coordination Gross Coordination WNL Sensation Assessment Sensation Gross Sensation WNL Muscle Tone Muscle Tone WNL Yes M6 PT-IP Treatment Start: 11/25/18 18:00 Freq: NEEDED Status: Active Protocol: Document 11/26/18 10:08 AW (Rec: 11/26/18 10:34 AW [id number]) Physical Therapy Treatment Education Education Provided Weight Bearing Status,Safety Other Treatments Other Treatment Performed Discussed PT plan of care, NWB status, and discharge recommendations with pt and daughter, M7 PT-IP Assessment and Plan Start: 11/25/18 18:00 Freq: NEEDED Status: Active Protocol: Document 11/27/18 15:56 LJ (Rec: 11/27/18 16:48 LJ [id number]) PT Summary Assessment and Plan Potential Rehabilitation Potential Good Status of Condition at Evaluation Evolving Summary Impairments Pain,ROM,Strength,Balance,Bed Mobility,Transfers,Gait, Activity Tolerance Assessment Summary Pt able to sit<>stand on BSC and bed with CGA. Able to maintain nonweight bearing on LLE during single leg pivot between BSC and bed. Increased pain with movement. No c.o dizziness this session. Pt was able to position herself into bed with min assist and scooted to head of bed using her arms reaching overhead. Pt has demonstrated good awareness with movement that nursing can assist her with 2 people rather than mechanical lift. Lift would cause more pain to pt than stand pivot from bed to chair to BSC. Goals Bed Mobility Goal Contact Guard Assistance Transfer Goal Contact Guard Assistance Days to Meet Goals 10 Frequency of Treatment Frequency Of Treatment Twice a Day Treatment Plan Physical Therapy Treatment Plan Bed Mobility Training,Transfer Training,Gait Training, Therapeutic Exercise,Balance Retraining,Discharge Planning, Hot or Cold Pack,Neuromuscular Re-ed,Coordination Retraining ,Manual Therapy Recommendations To Nursing Amount of Assist Needed 2 Person Assist Discharge Recommendations PT Discharge Recommendations Home with 24/7 Assist,Home Health,SNF Rehab Other Discharge Recommendations with PT,OT and bath aide. Equipment Needed for Home Before FWW, WC, BSC Discharge
--- NOTE | 2018-11-27 16:53 | CM.DPC ---
Pt. and family very concerned about plan to d/c home due to obs status and inability to self-fund SNF. Anjelica WASHBURN re-sent case for [employer] to review due to IV pain medication admin needed before ambulation and dietary nutrition concerns for malnutrition. No decision yet to be made by [employer] so patient remains here. Did have [employer] do a face to face with patient for home care. Will use company if [employer] denies Inpt. review. Family in agreement.
--- NOTE | 2018-11-27 18:34 | PC.NURSE ---
Addendum entered by Suzanna Melgoza R.N. 11/27/18 22:50: Pt med at 2200 for discomfort. HL intact/patent, tele NSR per ICU staff. Condition remains essentially unchanged. Call light w/in reach, bed alarm on for pt safety. Continue w/plan of care. Original Note: Pt resting at intervals, Denies discomfort at this time. HL GARY intact/patent. Tele showing NSR per ICU staff. Call light w/in reach, bed alarm on for pt safety.
--- NOTE | 2018-11-27 20:01 | PM.PN.1 ---
Subjective Subjective Date Patient Seen: 11/27/18 Time Patient Seen: 13:30 Interval history: She is seen today to follow up her pelvic fracture, chronic kidney disease, depression, C diff disease, coronary disease. The pelvis continues to be quite painful limiting her participation physical therapy as would be expected. Given her hip fracture she has very limited movement and requires significant assistance. Physical therapy and occupational therapy are recommending discharge to SNF rehab or home with 24/7 assistance. Exam Vital Signs (past 8 hours): - 11/27/18 15:45 11/27/18 18:31 11/27/18 19:52 Temperature 98.9 F 98.9 F Pulse Rate 86 81 Respiratory Rate 16 18 Blood Pressure 108/63 127/66 Pulse Oximetry 97 94 99 Oxygen Delivery Method Room Air Oxygen Flow Rate 0 Narrative Exam Narrative: GENERAL APPEARANCE: Well developed, well nourished, in no acute distress. SKIN: Inspection of the skin reveals no rashes, ulcerations or petechiae. HEENT: The sclerae were anicteric and conjunctivae were pink and moist. Extraocular movements were intact and pupils were equal, round with normal accommodation. External inspection of the ears and nose showed no scars, lesions, or masses. Lips, teeth, and gums showed normal mucosa. The oral mucosa, hard and soft palate, tongue and posterior pharynx were unremarkable. NECK: Supple and symmetric. There was no thyroid enlargement, and no tenderness, or masses were felt. CHEST: Normal AP diameter and normal contour without any kyphoscoliosis. LUNGS: Auscultation of the lungs revealed no wheezes, rhonchi, or rales. CARDIOVASCULAR: There was a regular rate and rhythm without any murmurs, gallops, rubs. Peripheral pulses were 2+ and symmetric. ABDOMEN: Soft and nontender with normal bowel sounds. No ascites was noted. MUSCULOSKELETAL: L hip tenderness, no ecchymosis present. EXTREMITIES: No cyanosis, clubbing or edema. NEUROLOGIC: Alert and oriented x 3. Normal affect. L leg is weaker secondary to pain. Sensation to touch was normal. Objective Labs Result Diagrams: 11/26/18 08:15 11/26/18 08:15 Assessment & Plan Assessment & Plan narrative: This is a 78-year-old female who woke up to go to the bathroom and was overcome by the darkness and her chronic dizziness, falling down and fracturing her pelvis. Per the x-ray she has a left-sided pelvis fracture with minimally displaced inferior and superior pubic ramus fractures and nondisplaced left iliac crest fracture that extends to the anterior SI joint without displacement. Pelvic fractures, likely pathologic from osteoporosis given ground level fall. -weightbear guidelines as managed by Orthopedics. Nonweightbearing on the left lower extremity for 6 weeks with progression to toe-touch and beyond after that but a total of 6-12 weeks of protected weight-bearing. The patient will have follow-up x-rays in 7-10 days with inlet and outlet and AP pelvis views if there is no displacement will continue conservative treatment. Anticipate patient requiring long term care as will be mostly transfers and wheelchair chair for the next 2-3 months. -DVT prophylaxis with enoxaparin -it has been difficult for her to cooperate with physical therapy. -pending In home ground level fall -she describes chronic dizziness. -brain MRI was unremarkable -telemetry has apparently been unremarkable -TTE was not ordered, will order today. Coronary artery disease -per phone call with Dr. Resendiz, she has severe coronary artery disease that has not been stented due to her chronic kidney disease and comorbidities. -continue aspirin and Lipitor -cardiology has requested echocardiogram and telemetry monitoring as they had been planning those evaluations recently as an outpatient, was not ordered yesterday will order today. Chronic dizziness -check echocardiogram, telemetry and brain MRI, with the echo portion still pending. Chronic C diff infection/diarrhea -continue on Dificid which was apparently recently appealed and then approved by her insurance for outpatient use but she had not been able to pick it up yet. -she does not have an infectious disease doctor or GI specialist. -the next step may be a stool transplant. -no liquid bowel movement since admission. Anemia of CKD -hgb 10.5 -follow CBC Hyperlipidemia -continue atorvastatin Sjogren syndrome -continue Plaquenil Chronic kidney disease 4 -followed outpatient by Nephrology -avoid nephrotoxic agents and medications. -follow BMP with creatinine improved from 2.6 down to 1.9 and a GFR 25. Depression/anxiety -continue sertraline and bedtime lorazepam Quality VTE Deep Vein Thrombosis/Pulmonary Embolism Present on Admission: No
[2018-11-27] MEDS: SERTRALINE 50 MG TABLET 200 MG PO (22:46)
[2018-11-28] VITALS (10 sets, daily range): BP systolic 97–131; BP diastolic 56–78; PULSE 75–86; RESP 15–20; TEMP 36–37.1; O2SAT 94–98
[2018-11-28] MEDS: MORPHINE 2 MG/ML INJ 1 MG IV (00:13)
[2018-11-28] MEDS: SODIUM CHLORIDE 0.9% FLUSH 10 ML IV ×3 (00:13→20:30)
--- NOTE | 2018-11-28 06:08 | PC.NURSE ---
Pt. reported 1 tab. Vicodin not effetive for pain. Notified INSURANCE CLAIMS SPECIALIST Dick ordered to admin. 1 tab of Vicodin for moderate pain & 2 tabs. for severe pain. Will change order in E-MAR.
[2018-11-28 07:04] LABS: BUN Creatinine Ratio 16.5 (6-22); Blood Urea Nitrogen 28 mg/dL (7-17); Calcium 9.5 mg/dL (8.4-10.2); Carbon Dioxide 19 mmol/L (22-32); Chloride 115 mmol/L (98-107); Glucose 92 mg/dL (80-110); HEMOLYSIS < 15 (0-50); Potassium 4.1 mmol/L (3.4-5.1); Sodium 144 mmol/L (137-145)
[2018-11-28] MEDS: FIDAXOMICIN 200 MG TABLET PO ×2 (08:22→20:27)
[2018-11-28] MEDS: ENOXAPARIN 30 MG/0.3 ML SYRINGE SUBCUT (08:22)
[2018-11-28] MEDS: HYDROCODONE/ACET 5/325 TABLET 2 TAB PO ×3 (08:22→18:30)
--- NOTE | 2018-11-28 09:44 | PC.NURSE ---
Patient alert, oriented rates pain to left groin 7/10 given two 5/325mg norco. Pt up to chair with therapy, rates pain now a 2/10.
--- NOTE | 2018-11-28 09:45 | PT.IPTN ---
Physical Therapy Treatment Note M2 PT-IP Current Condition Start: 11/25/18 18:00 Freq: NEEDED Status: Active Protocol: Document 11/26/18 10:08 AW (Rec: 11/26/18 10:34 AW [id number]) Physical Therapy Current Condition Current Condition Evaluation Date 11/26/18 Treatment Diagnosis left iliac crest and left pubic rami fractures, managed conservatively Onset Date 11/24/18 Weight Bearing Status Weight Bearing Status Non-Weight Bearing Allowed Weight Bearing Amount (enter % NWB LLE or #) (%) M3 PT-IP Subjective Start: 11/25/18 18:00 Freq: NEEDED Status: Active Protocol: Document 11/28/18 09:25 HH (Rec: 11/28/18 09:45 HH [id number]) Subjective Physical Therapy Visit Type Type Treatment Note Visit Start Time 09:20 Visit Stop Time 09:35 Total Visit Minutes 15 Number of METHODS SPECIALIST Visits 0 Physical Therapy Visit Comments Patient Comments Pt willing to transfer to bed. My daughter is still trying to find out if we could get more help at home. Therapy Pain Assessment Pain When Pain Assessed During Mobility Pain Present Pain Present Pain Reported Location Left Hip Intensity 5 Pain Management Techniques Modification of Treatment,Re- positioning,Timing of Activity with Medications M4 PT-IP Mobility and Gait Start: 11/25/18 18:00 Freq: NEEDED Status: Active Protocol: Document 11/28/18 09:25 HH (Rec: 11/28/18 09:45 HH [email or web address]) PT-Bed Mobility Assessment Rolling Type of Rolling Roll to Right Supine to Sit Supine to Sit Standby Assistance,1 Person Assistance,Bedrails Scooting Scooting to Edge of Bed Standby Assistance PT-Transfer Assessment Sit to and From Stand Sit to and from Stand Contact Guard Assistance, Minimal Assistance,1 Person Assistance Equipment Transfer Assistive Device Gait Belt,Front Wheeled Walker Orthotic/Prosthetic Devices or Brace: No Transfers Transfer Destination Bed,Chair,Bedside Commode Transfer Technique single leg stand pivot Transfer Ability Level of Assist Contact Guard Assistance,1 Person Assistance,Use of Upper Extremities Comments Mobility Comments Pt took approx 30 secs for supine to sit on R right side with R bed rail. Pt needs CGA/ min A to stabilize her walker during sit to stand. Pt did 180 degrees stand pivot transfer from EOB to BSC with SBA (towards her R side), followed by returning to chair on her L side. Gait Assessment Comments Gait Comments unable Stair Climbing Assessment Comments Stair Climbing Comments unable M5 PT-IP Objective Assessments Start: 11/25/18 18:00 Freq: NEEDED Status: Active Protocol: Document 11/26/18 10:08 AW (Rec: 11/26/18 10:34 AW [id number]) Orientation Orientation/Cognition Level of Alertness Alert Orientation Name,Month,Place,Situation Language Function Ability No Deficits Noted Safety Awareness Decreased Safety Awareness Memory Description No Deficits Noted Comments Pt able to verbalize NWB precautions, but required verbal cues and demonstration to avoid placing left foot on top of right foot in standing. Gross Range of Motion Upper Extremity ROM Assessment Within Functional Limits Lower Extremity ROM Assessment Left Impaired Strength Upper Extremity Strength Assessment Bilaterally Impaired Lower Extremity Strength Assessment Bilaterally Impaired Comments Strength Comments UE strength 4-/5 bilaterally. RLE knee extension 5/5, 4/5 in all other muscle groups. LLE not tested. Coordination Assessment Gross Coordination Gross Coordination WNL Sensation Assessment Sensation Gross Sensation WNL Muscle Tone Muscle Tone WNL Yes M6 PT-IP Treatment Start: 11/25/18 18:00 Freq: NEEDED Status: Active Protocol: Document 11/26/18 10:08 AW (Rec: 11/26/18 10:34 AW [id number]) Physical Therapy Treatment Education Education Provided Weight Bearing Status,Safety Other Treatments Other Treatment Performed Discussed PT plan of care, NWB status, and discharge recommendations with pt and daughter, M7 PT-IP Assessment and Plan Start: 11/25/18 18:00 Freq: NEEDED Status: Active Protocol: Document 11/28/18 09:25 HH (Rec: 11/28/18 09:45 HH [email or web address]) PT Summary Assessment and Plan Potential Rehabilitation Potential Good Status of Condition at Evaluation Evolving Summary Impairments Pain,ROM,Strength,Balance,Bed Mobility,Transfers,Gait, Activity Tolerance Assessment Summary Pt cont to progress on bed mobility and transfer with overall SBA and FWW. Pt is aware of her d/c situation who either has to get more assistance from family due to limited mobility or high expense on SNF stay. She states her daughter is currently managing all possible options. Will cont follow up with pt, her family and SW. Goals Bed Mobility Goal Contact Guard Assistance Transfer Goal Contact Guard Assistance Days to Meet Goals 10 Frequency of Treatment Frequency Of Treatment Twice a Day Treatment Plan Physical Therapy Treatment Plan Bed Mobility Training,Transfer Training,Gait Training, Therapeutic Exercise,Balance Retraining,Discharge Planning, Hot or Cold Pack,Neuromuscular Re-ed,Coordination Retraining ,Manual Therapy Other Recommendations and Next Treatment cont to follow up with d/c Focus planning Recommendations To Nursing Amount of Assist Needed 1 Person Assist Discharge Recommendations PT Discharge Recommendations Home with / Assist,Home Health,SNF Rehab Other Discharge Recommendations HH with PT,OT and bath aide. Equipment Needed for Home Before FWW, WC, BSC Discharge
--- NOTE | 2018-11-28 10:18 | OT.IP.TRT ---
Occupational Therapy Treatment Note M2 OT-IP Current Condition Start: 11/25/18 17:04 Freq: Status: Active Protocol: Document 11/27/18 10:31 PJM (Rec: 11/27/18 17:02 PJM [id number]) Occupational Therapy Current Condition Current Condition Evaluation Date 11/27/18 Treatment Diagnosis decreased self care, mobility S/P non operative L pelvic fx Diagnosis Onset Date 11/24/18 Weight Bearing Status Weight Bearing Status Non-Weight Bearing Allowed Weight Bearing Amount (enter % LLE or #) (%) M3 OT- IP Subjective and Pain Start: 11/25/18 17:04 Freq: Status: Active Protocol: Document 11/28/18 10:18 PJM (Rec: 11/28/18 10:38 PJM [id number]) OT- Subjective Occupational Therapy Visit Type Type Treatment Note Visit Start Time 10:40 Visit Stop Time 10:18 Total Visit Minutes 38 Occupational Therapy Visit Comments Patient Comments I fell pretty good just sitting here. Patient/Caregiver Goals to go home with assist from daughters OT Pain Assessment Pain When Pain Assessed At Rest Pain Present Pain Present Pain Reported Location Left Hip Intensity 2 Description Aching,Acute M4 OT- IP ADL's Start: 11/25/18 17:04 Freq: Status: Active Protocol: Document 11/28/18 10:18 PJM (Rec: 11/28/18 10:38 PJM [id number]) OT ADL-Dressing General Eval Upper Body Dressing Ability Standby Assistance Lower Body Dressing Ability Moderate Assistance Areas Needing Assistance Retrieving/Set-up of Clothing, Pants/Shorts,Socks Assistive Devices Dressing Assistive Devices Long Handled Shoe Horn,School Community Relations Coordinator ,Sock Aid Comments OT Dressing Comments Provided field laborer, sock aid and long shoe horn to pt and began education re: their use. Pt needs mod assist to use sock aid on first trial and min assist to get brief over feet with field laborer. Max assist to pull brief over hips while standing with FWW due to decreased balance. OT ADL-Bathing Comments OT Bathing Comments long bath sponge provided M7 OT- IP Mobility and Balance Start: 11/25/18 17:04 Freq: Status: Active Protocol: Document 11/28/18 10:18 PJM (Rec: 11/28/18 10:38 PJ [id number]) OT-Transfer Assessment Sit to and From Stand Sit to and from Stand Contact Guard Assistance Devices Transfer Assistive Devices Gait Belt,Front Wheeled Walker OT- Balance Assessment Sitting Balance and Reactions Static Sitting Balance Ability Good Dynamic Sitting Balance Ability Good Standing Balance and Reactions Static Standing Balance Ability Fair Dynamic Standing Balance Ability Poor Comments Other Balance Tests/Deviations/Treatment Pt needs mod assist for : balance with FWW when attempting to pull pants over hips, note pt has new pain in R medial ankle posterior to the malleolus. RN and Dr Ascencio notified. Educated pt re: ankle pumps at least 10x every hour while awake. M Summary Comments BUE WNL M9 OT- IP Assessment and Plan Start: 11/25/18 17:04 Freq: Status: Active Protocol: Document 11/28/18 10:18 PJM (Rec: 11/28/18 10:38 PJM [email or web address]) OT Summary Assessment and Plan Potential Rehabilitation Potential Good Summary OT Impairments Pain,Balance,Functional Mobility,Dressing,Toileting, Bathing,Toilet Transfers, Shower Transfers Progress Towards Goals Progressing Toward Goals Assessment Summary Pt making daily progress and beginning to work on lower body dressing techniques with adaptive equipt. She has significantly decreased standing balance when trying to do clothing management as needed for dressing and toileting. Pt has new pain in R medial ankle just posterior to malleolus. It is tender to touch, appears slightly bruised and is painful with weight bearing. Suspect this soreness resulting from pivoting on R foot during transfers. MD and RN notified. Pt currently needs assist during all waking hours for transfers, toileting, dressing and set up in chair for grooming and eating. Pt will not be a functional household ambulator at home so recommend W/C for most mobility. Pt would greatly benefit from SNF stay prior to return home to increase endurance, independence and safety in self care skills and standpivot transfers prior to return home. Goals Grooming Goal Independent Dressing Goal Minimal Assistance,Long Handled Shoe Horn,School Community Relations Coordinator,Sock Aid Toileting Goal Independent Bathing Goal Minimal Assistance,Grab Bars, Hand Held Shower Sprayer Toilet Transfer Goal Standby Assistance,Bedside Commode Shower Transfer Goal Minimal Assistance,Walk-in Shower,Shower Chair,Grab Bars Patient/Caregiver Education Goal Demonstrate Post-Op Precautions,Demonstrate Energy Conservation and Pacing, Caregiver Independent Assisting Patient OT-Other Goals Grooming to be done seated in chair. Days to Meet Goals 5 Frequency of Treatment Frequency Of Treatment Once a Day Treatment Plan OT Treatment Plan ADL Training,Functional Mobility,Patient/Family Education,Discharge Planning Discharge Recommendations Other Discharge Recommendations SNF vs home with 24/ assist and HH PT, OT, bath aide Home Equipment Needs FWW, BSC, W/C (family to borrow from [employer]
--- NOTE | 2018-11-28 14:14 | P.PN_ITS ---
Subjective Subjective Date Patient Seen: 11/28/18 Time Patient Seen: 14:37 Interval history: Patient's pain mild at rest. Patient has pain moderate to severe with movement of her lower extremities. Denies fever chills. No nausea vomiting. She does note right ankle pain this morning. No previous injury to ankle. Exam Vital Signs (past 8 hours): - 11/28/18 08:00 11/28/18 09:41 11/28/18 13:09 Temperature 98.0 F 97.4 F L Pulse Rate 76 76 Respiratory Rate 15 15 Blood Pressure 123/78 111/60 Pulse Oximetry 96 96 98 Oxygen Delivery Method Room Air Oxygen Flow Rate 0 Narrative Exam Narrative: Patient is sitting in bedside chair in no acute distress. She is alert orient x3. Right ankle is tender to palpation at medial malleolus and Achilles. No instability of ankle. Minimal swelling. No ecchymosis or erythema. Objective Labs Result Diagrams: 11/26/18 08:15 11/28/18 06:40 Labs: Laboratory Results - last 24 hr 11/28/18 06:40 Sodium 144 Potassium 4.1 Chloride 115 H Carbon Dioxide 19 L BUN 28 H Creatinine 1.70 H Estimated GFR 29.0 L BUN/Creatinine Ratio 16.5 Glucose 92 Calcium 9.5 Assessment & Plan Assessment and plan (1) Closed fracture of pubic ramus: Problem details: Patient has a minimally displaced fractures of the superior and inferior pubic rami she also has a left iliac crest fracture that extends into the anterior SI joint in an LC type pattern without displacement of the SI joint. Discussed with the patient that this fracture is nondisplaced and can be treated non operatively but will require weight-bearing protection. I have advised the patient be nonweightbearing on the left lower extremity in anticipate this for 6 weeks with progression to toe-touch and beyond after that but a total of 6-12 weeks of protected weight-bearing. We also discussed that a pelvis fractures can have a higher risk of DVT or PE and recommend DVT prophylaxis per her admitting team. We discussed that no surgery is indicated at this time. The patient will have follow-up x-rays in 7-10 days with inlet and outlet and AP pelvis views if there is no displacement will continue conservative treatment. Anticipate patient requiring long-term care as will be mostly transfers and wheelchair chair for the next 2-3 months. Patient understands and agrees with the plan. Qualifiers: Encounter type: initial encounter Laterality: left Qualified Code(s): S32.592A - Other specified fracture of left pubis, initial encounter for closed fracture Current visit: Yes Status: Acute (2) Ankle sprain: Problem details: Recommending ice, rest. She could wear an ankle brace while ambulating. Current visit: Yes Status: Acute Quality VTE Deep Vein Thrombosis/Pulmonary Embolism Present on Admission: No
--- NOTE | 2018-11-28 14:47 | PT.IPTN ---
Current Diagnoses Other specified fracture of left pubis, initial encounter for closed fracture (11/24/18) Sprain of unspecified ligament of unspecified ankle, initial encounter (11/24/18) Physical Therapy Treatment Note M2 PT-IP Current Condition Start: 11/25/18 18:00 Freq: NEEDED Status: Active Protocol: Document 11/26/18 10:08 AW (Rec: 11/26/18 10:34 AW [id number]) Physical Therapy Current Condition Current Condition Evaluation Date 11/26/18 Treatment Diagnosis left iliac crest and left pubic rami fractures, managed conservatively Onset Date 11/24/18 Weight Bearing Status Weight Bearing Status Non-Weight Bearing Allowed Weight Bearing Amount (enter % NWB LLE or #) (%) M3 PT-IP Subjective Start: 11/25/18 18:00 Freq: NEEDED Status: Active Protocol: Document 11/28/18 14:46 CLB (Rec: 11/28/18 14:47 CLB [id number]) Subjective Physical Therapy Visit Type Type Patient Refusal Notes Pt refused, she just sat in chair after using BSC with HEEL GOUGER and stated she did not want to get back to bed.
--- NOTE | 2018-11-28 15:28 | P.DS_ITS ---
History of Present Illness History of Present Illness Date Patient Seen: 11/28/18 Time Patient Seen: 15:31 Chief complaint: GLF Narrative: As per Javier Olmedo MD This is a 78-year-old female who woke up to go to the bathroom this morning, when she was overcome by a combination of the darkness and her chronic dizziness, falling down and fracturing her pelvis. Per the x-ray she has a left-sided pelvis fracture with minimally displaced inferior and superior pubic ramus fractures and nondisplaced left iliac crest fracture that extends to the anterior SI joint without displacement. She has been evaluated by Orthopedics and is nonweightbearing at this time. She has a chronic problem with C diff infections, most recently apparently appealed and approved for Dificid(over 4000 dollars) which she was to pick up driver at her pharmacy today. Subsequent to the fall she had a large bowel movement typical for her diarrhea but has not had any more bowel movements today. She has been evaluated by Cardiology for her chronic dizziness. Doctor Resendiz call me requesting that we proceed with the echocardiogram that had been planned as an outpatient and also keep her on telemetry while inpatient as a monitoring sequence had been planned as an outpatient. She does not recall having had any recent brain imaging so a brain MRI will be appropriate. She also has inoperable/severe coronary artery disease that was apparently found on cardiac catheterization a year ago. Cardiology tells me that interventions were not done due to a combination of the patient preference and her chronic kidney disease/comorbidities. Discharge Providers Provider Date of admission: 11/24/18 06:51 Discharge Date: 11/28/18 Primary care physician: Susan Billingsley DO Consults: 11/25/18 09:55 Consult to Occupational Therapy Evaluate & Treat Comment: Physician Instructions: Evaluate and treat Consult to Physical Therapy Evaluate & Treat Comment: Physician Instructions: Evaluate and Treat Discharge provider: Rod Ascencio DO Summary Hospital Course Hospital Course: This is a 78-year-old female who woke up to go to the bathroom and was overcome by the darkness and her chronic dizziness, falling down and fracturing her pelvis. Per the x-ray she has a left-sided pelvis fracture with minimally displaced inferior and superior pubic ramus fractures and nondisplaced left iliac crest fracture that extends to the anterior SI joint without displacement. 1. Pelvic fractures, likely pathologic from osteoporosis given ground level fall. - Per orthopedics, Patient has a minimally displaced fractures of the superior and inferior pubic rami she also has a left iliac crest fracture that extends into the anterior SI joint in an LC type pattern without displacement of the SI joint. Discussed with the patient that this fracture is nondisplaced and can be treated non operatively but will require weight-bearing protection. I have advised the patient be nonweightbearing on the left lower extremity in anticipate this for 6 weeks with progression to toe-touch and beyond after that but a total of 6-12 weeks of protected weight-bearing. We also discussed that a pelvis fractures can have a higher risk of DVT or PE and recommend DVT prophylaxis per her admitting team. We discussed that no surgery is indicated at this time. The patient will have follow-up x-rays in 7-10 days with inlet and outlet and AP pelvis views if there is no displacement will continue conservative treatment. Anticipate patient requiring care home care as will be mostly transfers and wheelchair chair for the next 2-3 months. Patient understands and agrees with the plan. -DVT prophylaxis with enoxaparin as outpatient. -she is being discharged home with home health. Attempts were made at acceptance to SNF rehab however these were denied. 2. In home ground level fall -she describes chronic dizziness. -brain MRI was unremarkable -telemetry has been unremarkable -TTE was unremarkable. 3. Coronary artery disease -per phone call with Dr. Resendiz, she has severe coronary artery disease that has not been stented due to her chronic kidney disease and comorbidities. -continue aspirin and Lipitor -cardiology has requested echocardiogram and telemetry monitoring. Repeat TTE was performed and showed no significant changes. 4. Chronic C diff infection/diarrhea -continue on Dificid which was apparently recently appealed and then approved by her insurance for outpatient use but she had not been able to pick it up yet. -she does not have an infectious disease doctor or GI specialist. -the next step may be a stool transplant. -no liquid bowel movement since admission. 5. Anemia of CKD -hgb 10.5 -follow CBC 6. Hyperlipidemia -continue atorvastatin 7. Sjogren syndrome, chronic -continue Plaquenil 8. Chronic kidney disease 4 -followed outpatient by Nephrology -avoid nephrotoxic agents and medications. -follow BMP with creatinine improved from 2.6 down to 1.7 and a GFR 29 9. Depression/anxiety -continue sertraline and bedtime lorazepam Exam Vital Signs (past 8 hours): - 11/28/18 08:00 11/28/18 09:41 11/28/18 13:09 Temperature 98.0 F 97.4 F L Pulse Rate 76 76 Respiratory Rate 15 15 Blood Pressure 123/78 111/60 Pulse Oximetry 96 96 98 Oxygen Delivery Method Room Air Oxygen Flow Rate 0 Narrative Exam Narrative: GENERAL APPEARANCE: Well developed, well nourished, in no acute distress. SKIN: Inspection of the skin reveals no rashes, ulcerations or petechiae. HEENT: The sclerae were anicteric and conjunctivae were pink and moist. Extraocular movements were intact and pupils were equal, round with normal accommodation. External inspection of the ears and nose showed no scars, lesions, or masses. Lips, teeth, and gums showed normal mucosa. The oral mucosa, hard and soft palate, tongue and posterior pharynx were unremarkable. NECK: Supple and symmetric. There was no thyroid enlargement, and no tenderness, or masses were felt. CHEST: Normal AP diameter and normal contour without any kyphoscoliosis. LUNGS: Auscultation of the lungs revealed no wheezes, rhonchi, or rales. CARDIOVASCULAR: There was a regular rate and rhythm without any murmurs, gallops, rubs. Peripheral pulses were 2+ and symmetric. ABDOMEN: Soft and nontender with normal bowel sounds. No ascites was noted. MUSCULOSKELETAL: L hip tenderness, no ecchymosis present. R posterior ankle tenderness, new. No eccymosis or bruising apparent. No erythema or warmth. EXTREMITIES: No cyanosis, clubbing or edema. NEUROLOGIC: Alert and oriented x 3. Normal affect. L leg is weaker secondary to pain. Sensation to touch was normal. Objective Labs Result Diagrams: 11/26/18 08:15 11/28/18 06:40 Labs: Laboratory Results - last 24 hr 11/28/18 06:40 Sodium 144 Potassium 4.1 Chloride 115 H Carbon Dioxide 19 L BUN 28 H Creatinine 1.70 H Estimated GFR 29.0 L BUN/Creatinine Ratio 16.5 Glucose 92 Calcium 9.5 Discharge Plan Discharge Plan Patient Disposition: Home Health Service Transfer to: [facility] Discharge comment: Your being discharged home after hip fracture, which is being managed non operatively. Due to your immobility, I will be prescribing a medication to prevent blood clots at home. You should continue this at least for 30 days. You should follow up with your primary care provider regarding the appropriate duration. Your kidney function improved to baseline on the day of discharge. You will need a follow-up with Orthopedic surgery in about a week for repeat imaging as per their instructions. You are being discharged with [facility]. Discharge Med Rec/Prescriptions Prescriptions: New enoxaparin [Lovenox] 30 mg/0.3 mL Syringe 30 mg subcut DAILY 30 Days Qty: 9 RF: 0 hydrocodone-acetaminophen 5-325 mg Tablet 1 tab PO Q4HR PRN (Reason: Pain, Moderate (4-6)) 7 Days Qty: 30 RF: 0 Dificid 200 mg Tablet 200 mg PO BID 30 Days Qty: 60 RF: 0 Continued furosemide [Lasix] 20 mg tablet 20 mg PO DAILY RF: 0 omega-3 fatty acids [Fish Oil Concentrate] 1,000 mg capsule 1,000 mg PO DAILY RF: 0 psyllium husk [Metamucil] 0.52 gram capsule 0.52 gram PO DAILY RF: 0 aspirin [Adult Aspirin Regimen] 81 mg tablet,delayed release (DR/EC) 81 mg PO DAILY RF: 0 acetaminophen [Tylenol Extra Strength] 500 mg tablet 500 mg PO QID PRN (Reason: Pain (Scale Score 1-3)) RF: 0 albuterol sulfate [Ventolin HFA] 90 mcg/actuation HFA aerosol inhaler 1 puff INHALATION Q6H PRN (Reason: SOB) RF: 0 atorvastatin 40 mg tablet 40 mg PO DAILY RF: 0 lorazepam 0.5 mg Tablet 0.5 mg PO BEDTIME RF: 0 hydroxychloroquine 200 mg tablet 200 mg PO BEDTIME RF: 0 sertraline 100 mg tablet 200 mg PO BEDTIME RF: 0 (DME) Respironics DreamStation Auto CPAP Qty: 1 RF: 0 Follow up/Referrals: Abigail Hodges PA-C [Advanced Operating Engineer] - Susan Billingsley DO [Primary Care Provider] - Provider Discharge Instructions Diet: Diet as Tolerated Activity: As per Orthopedic instructions Discharge Data Primary Care Provider: Susan Billingsley Attending Provider: Rod Jennings Admit Date/Time: 11/24/18 06:51 Quality VTE Deep Vein Thrombosis/Pulmonary Embolism Present on Admission: No
--- NOTE | 2018-11-28 15:55 | CM.DPC ---
DCP Discharge Home with HH Per MD, pt is medically stable to d/c home with HH since SNF is not an option for private pay. [facility] called [facility] and confirmed that they can still accept and updated that pt has d/c orders now. [facility] confirms he already has the [facility] and just needs d/c summary when available. ESCOBAR faxed d/c summary to [facility] to review. Plan: Patient to d/c home today via family POV and [facility] to open pt to services. KIP Harding
--- NOTE | 2018-11-28 16:12 | PT.IPTN ---
Current Diagnoses Other specified fracture of left pubis, initial encounter for closed fracture (11/24/18) Sprain of unspecified ligament of unspecified ankle, initial encounter (11/24/18) Physical Therapy Treatment Note M2 PT-IP Current Condition Start: 11/25/18 18:00 Freq: NEEDED Status: Active Protocol: Document 11/26/18 10:08 AW (Rec: 11/26/18 10:34 AW [id number]) Physical Therapy Current Condition Current Condition Evaluation Date 11/26/18 Treatment Diagnosis left iliac crest and left pubic rami fractures, managed conservatively Onset Date 11/24/18 Weight Bearing Status Weight Bearing Status Non-Weight Bearing Allowed Weight Bearing Amount (enter % NWB LLE or #) (%) M3 PT-IP Subjective Start: 11/25/18 18:00 Freq: NEEDED Status: Active Protocol: Document 11/28/18 16:06 AW (Rec: 11/28/18 16:11 AW [id number]) Subjective Physical Therapy Visit Type Type Treatment Note Visit Start Time 15:48 Visit Stop Time 16:00 Total Visit Minutes 12 Number of PRODUCTION GENERALIST Visits 0 Physical Therapy Visit Comments Patient Comments Pt is sitting in chair, refusing mobilization with PT. M4 PT-IP Mobility and Gait Start: 11/25/18 18:00 Freq: NEEDED Status: Active Protocol: Document 11/28/18 09:25 HH (Rec: 11/28/18 09:45 HH [id number]) PT-Bed Mobility Assessment Rolling Type of Rolling Roll to Right Supine to Sit Supine to Sit Standby Assistance,1 Person Assistance,Bedrails Scooting Scooting to Edge of Bed Standby Assistance PT-Transfer Assessment Sit to and From Stand Sit to and from Stand Contact Guard Assistance, Minimal Assistance,1 Person Assistance Equipment Transfer Assistive Device Gait Belt,Front Wheeled Walker Orthotic/Prosthetic Devices or Brace: No Transfers Transfer Destination Bed,Chair,Bedside Commode Transfer Technique single leg stand pivot Transfer Ability Level of Assist Contact Guard Assistance,1 Person Assistance,Use of Upper Extremities Comments Mobility Comments Pt took approx 30 secs for supine to sit on R right side with R bed rail. Pt needs CGA/ min A to stabilize her walker during sit to stand. Pt did 180 degrees stand pivot transfer from EOB to BSC with SBA (towards her R side), followed by returning to chair on her L side. Gait Assessment Comments Gait Comments unable Stair Climbing Assessment Comments Stair Climbing Comments unable M5 PT-IP Objective Assessments Start: 11/25/18 18:00 Freq: NEEDED Status: Active Protocol: Document 11/26/18 10:08 AW (Rec: 11/26/18 10:34 AW [id number]) Orientation Orientation/Cognition Level of Alertness Alert Orientation Name,Month,Place,Situation Language Function Ability No Deficits Noted Safety Awareness Decreased Safety Awareness Memory Description No Deficits Noted Comments Pt able to verbalize NWB precautions, but required verbal cues and demonstration to avoid placing left foot on top of right foot in standing. Gross Range of Motion Upper Extremity ROM Assessment Within Functional Limits Lower Extremity ROM Assessment Left Impaired Strength Upper Extremity Strength Assessment Bilaterally Impaired Lower Extremity Strength Assessment Bilaterally Impaired Comments Strength Comments UE strength 4-/5 bilaterally. RLE knee extension 5/5, 4/5 in all other muscle groups. LLE not tested. Coordination Assessment Gross Coordination Gross Coordination WNL Sensation Assessment Sensation Gross Sensation WNL Muscle Tone Muscle Tone WNL Yes M6 PT-IP Treatment Start: 11/25/18 18:00 Freq: NEEDED Status: Active Protocol: Document 11/28/18 16:06 AW (Rec: 11/28/18 16:11 AW [id number]) Physical Therapy Treatment Education Education Provided Weight Bearing Status,Safety Brace Education [place],Patient Equipment Issued Equipment Type and Company Ankle stabilizer with velcro strap, Iptivia M7 PT-IP Assessment and Plan Start: 11/25/18 18:00 Freq: NEEDED Status: Active Protocol: Document 11/28/18 16:06 AW (Rec: 11/28/18 16:11 AW [id number]) PT Summary Assessment and Plan Summary Assessment Summary Pt with discharge orders. MICHEAL Layne had ordered an ankle stabilizer to be sent home with the pt and to be worn for all mobility. Fitted patient and educated on donning/ doffing, reviewed NWB status for LLE. Frequency of Treatment Frequency Of Treatment Twice a Day Treatment Plan Physical Therapy Treatment Plan Bed Mobility Training,Transfer Training,Gait Training, Therapeutic Exercise,Balance Retraining,Discharge Planning, Hot or Cold Pack,Neuromuscular Re-ed,Coordination Retraining ,Manual Therapy Other Recommendations and Next Treatment cont to follow up with d/c Focus planning Recommendations To Nursing Amount of Assist Needed 1 Person Assist Discharge Recommendations PT Discharge Recommendations Home with 11/10 Assist,Home Health,SNF Rehab Other Discharge Recommendations with PT,OT and bath aide.
--- NOTE | 2018-11-28 18:48 | PC.NURSE ---
Addendum entered by Suzanna Melgoza R.N. 11/28/18 21:55: Tele NSR per ICU staff. Addendum entered by Suzanna Melgoza R.N. 11/28/18 21:50: Pt had relatively uneventful evening. Denies further discomfort. ' Condition remains essentially unchanged. Call light w/in reach, bed alrm on for pt safety. Continue w/plan of care. Original Note: Pt sitting in chair at beginning of shift. Lungs clear/ diminished at right base, SpO2 96% RA. Med @ 1830 for discomfort as per orders w/ fair relief. Tele shows NSR per ICU staff. Call light w/in reach, bed alrm on for pt safety.
[2018-11-28] MEDS: SERTRALINE 50 MG TABLET 200 MG PO (20:27)
[2018-11-29] MEDS: MORPHINE 2 MG/ML INJ 1 MG IV (00:02)
[2018-11-29] MEDS: HYDROCODONE/ACET 5/325 TABLET 2 TAB PO ×2 (00:03→09:16)
[2018-11-29 04:01] VITALS: BP 101/55; PULSE 84; RESP 16; TEMP 36.7; O2SAT 94
[2018-11-29 06:34] LABS: BUN Creatinine Ratio 18.8 (6-22); Blood Urea Nitrogen 32 mg/dL (7-17); Calcium 9.1 mg/dL (8.4-10.2); Carbon Dioxide 16 mmol/L (22-32); Chloride 115 mmol/L (98-107); Glucose 94 mg/dL (80-110); HEMOLYSIS < 15 (0-50); Potassium 4.3 mmol/L (3.4-5.1); Sodium 142 mmol/L (137-145)
[2018-11-29 07:00] VITALS: O2SAT 95
[2018-11-29 07:47] VITALS: BP 105/61; PULSE 73; RESP 16; O2SAT 95
[2018-11-29] MEDS: SODIUM CHLORIDE 0.9% FLUSH 10 ML IV (09:15)
[2018-11-29] MEDS: ENOXAPARIN 30 MG/0.3 ML SYRINGE SUBCUT (09:15)
[2018-11-29] MEDS: FIDAXOMICIN 200 MG TABLET PO (09:15)
--- NOTE | 2018-11-29 10:51 | OT.IP.TRT ---
Current Diagnoses Other specified fracture of left pubis, initial encounter for closed fracture (11/24/18) Sprain of unspecified ligament of unspecified ankle, initial encounter (11/24/18) Occupational Therapy Treatment Note M3 OT- IP Subjective and Pain Start: 11/25/18 17:04 Freq: Status: Active Protocol: Document 11/29/18 10:51 PJM (Rec: 11/29/18 11:29 PJM [id number]) OT- Subjective Occupational Therapy Visit Type Type Treatment Note Visit Start Time 10:25 Visit Stop Time 10:51 Total Visit Minutes 26 Notes Pt's daughter here for education this session. Occupational Therapy Visit Comments Patient Comments I have this R ankle brace now. It helps. Patient/Caregiver Goals to go home today OT Pain Assessment Pain When Pain Assessed At Rest Pain Present Pain Present Pain Reported Location Left Hip Intensity 3 Scale Used Numeric (1 - 10) Description Aching,Acute M4 OT- IP ADL's Start: 11/25/18 17:04 Freq: Status: Active Protocol: Document 11/29/18 10:51 PJM (Rec: 11/29/18 11:29 PJM [id number]) OT KBP-Fyxr-Mmgbqet General Evaluation Self-Feeding Ability Independent Comments OT Self-Feeding Comments after set up in chair OT ADL-Grooming General Evaluation Grooming Ability Independent Areas Needing Assistance Retrieving/Set-up of Grooming Items Comments OT Grooming Comments after all items within reach in chair OT ADL-Oral Care General Eval Oral Care Ability Independent Areas of Assistance Retrieving/Set-Up of Items OT ADL-Dressing General Eval Upper Body Dressing Ability Independent Lower Body Dressing Ability Moderate Assistance Areas Needing Assistance Underpants/Brief,Socks,Shoes Comments OT Dressing Comments Provided education to pt/ daughter re: use of palliative medicine physician, sock aid and long shoe horn use, but pt needs further practice with home OT to master new techniques. Recommend pt obtain slip on shoe. Daughter will assist pt with R ankle brace as instructed by P.T. Discussed optimal clothing choices to maximize indep at home. OT ADL-Toileting General Evaluation Toileting Ability Standby Assistance,Moderate Assistance Areas Needing Assistance Manage Clothing,Perform Perineal Hygiene Comments OT Toileting Comments SBA per icare, mod assist clothing management due to decreased balance when standing with FWW. OT ADL-Bathing Bathing Type Bathing Type Sponge Bath Comments OT Bathing Comments provided education re: sponge bathing and shampoo cap use; home health OT to educate pt on shower stall transfers and bathing in home setting M5 OT- IP IADL's Start: 11/25/18 17:04 Freq: Status: Active Protocol: Document 11/29/18 10:51 LAKESHA (Rec: 11/29/18 11:29 [facility] [id number]) OT-Instrumental Activities of Daily Living Deficits IADL Deficits Identified Deficits Home Safety Awareness Awareness of Need for Assistance at Home Good Awareness Ability to Problem Solve Emergency Able to Problem Solve Situations Medication Management Medication Management No Deficits Identified Money Management Money Management No Deficits Identified Meal Preparation Meal Preparation Caregiver Provides Assist Meal Preparation Comments family to assist until pt able Brush Worker Brush Worker Caregiver Provides Assist Brush Worker Comments family to assist until pt able Driving Driving Caregiver Provides Assist Driving Comments pt no longer drives M7 OT- IP Mobility and Balance Start: 11/25/18 17:04 Freq: Status: Active Protocol: Document 11/29/18 10:51 LAKESHA (Rec: 11/29/18 11:29 [facility] [id number]) OT-Transfer Assessment Sit to and From Stand Sit to and from Stand Contact Guard Assistance,1 Person Assistance,Use of Upper Extremities OT- Balance Assessment Sitting Balance and Reactions Static Sitting Balance Ability Good Dynamic Sitting Balance Ability Good Standing Balance and Reactions Static Standing Balance Ability Good Dynamic Standing Balance Ability Fair Comments Other Balance Tests/Deviations/Treatment decreased standing balance : during lower body clothing management, daughter able to assist pt appropriately after education M9 OT- IP Assessment and Plan Start: 11/25/18 17:04 Freq: Status: Active Protocol: Document 11/29/18 10:51 LAKESHA (Rec: 11/29/18 11:29 [facility] [id number]) OT Summary Assessment and Plan Potential Rehabilitation Potential Good Summary OT Impairments Strength,Balance Progress Towards Goals Safe For Discharge,Goals Met Assessment Summary All OT education completed with pt and daughter today re: adapted self care techniques with equipt as decribed above. Pt plans to d/c home today with 24 hr assist from daughter and home health PT/OT and bath aide. Frequency of Treatment Frequency Of Treatment Discharge Discharge Recommendations OT Discharge Recommendations Home with 24/7 Assist,Home Health
--- NOTE | 2018-11-29 10:53 | PM.DS.1 ---
History of Present Illness History of Present Illness Date Patient Seen: 11/29/18 Time Patient Seen: 10:53 Chief complaint: GLF Narrative: As per Javier Olmedo MD This is a 78-year-old female who woke up to go to the bathroom this morning, when she was overcome by a combination of the darkness and her chronic dizziness, falling down and fracturing her pelvis. Per the x-ray she has a left-sided pelvis fracture with minimally displaced inferior and superior pubic ramus fractures and nondisplaced left iliac crest fracture that extends to the anterior SI joint without displacement. She has been evaluated by Orthopedics and is nonweightbearing at this time. She has a chronic problem with C diff infections, most recently apparently appealed and approved for Dificid(over 4000 dollars) which she was to machine operator picker at her pharmacy today. Subsequent to the fall she had a large bowel movement typical for her diarrhea but has not had any more bowel movements today. She has been evaluated by Cardiology for her chronic dizziness. Doctor Resendiz call me requesting that we proceed with the echocardiogram that had been planned as an outpatient and also keep her on telemetry while inpatient as a monitoring sequence had been planned as an outpatient. She does not recall having had any recent brain imaging so a brain MRI will be appropriate. She also has inoperable/severe coronary artery disease that was apparently found on cardiac catheterization a year ago. Cardiology tells me that interventions were not done due to a combination of the patient preference and her chronic kidney disease/comorbidities. Discharge Providers Provider Date of admission: 11/24/18 06:51 Discharge Date: 11/29/18 Primary care physician: Susan Billingsley DO Consults: 11/25/18 09:55 Consult to Occupational Therapy Evaluate & Treat Comment: Physician Instructions: Evaluate and treat Consult to Physical Therapy Evaluate & Treat Comment: Physician Instructions: Evaluate and Treat 11/28/18 15:59 Consult to Home Health Routine Comment: Pelvic Fx, renal failure Reason For Exam: Set up HH RN/PT/OT/BUNCHER HAND/SW for d/c 11/28/18 Discharge provider: Rod Ascencio DO Summary Hospital Course Discharge Diagnosis: 1. Pelvic fractures, likely pathologic from osteoporosis 2. In home ground level fall 3. Coronary artery disease 4. Chronic C diff infection/diarrhea 5. Anemia of CKD 6. Hyperlipidemia 7. Sjogren syndrome, chronic 8. Chronic kidney disease 4 9. Depression/anxiety, chronic Hospital Course: This is a 78-year-old female who woke up to go to the bathroom and was overcome by the darkness and her chronic dizziness, falling down and fracturing her pelvis. Per the x-ray she has a left-sided pelvis fracture with minimally displaced inferior and superior pubic ramus fractures and nondisplaced left iliac crest fracture that extends to the anterior SI joint without displacement. 1. Pelvic fractures, likely pathologic from osteoporosis given ground level fall. - Per orthopedics, Patient has a minimally displaced fractures of the superior and inferior pubic rami she also has a left iliac crest fracture that extends into the anterior SI joint in an LC type pattern without displacement of the SI joint. Discussed with the patient that this fracture is nondisplaced and can be treated non operatively but will require weight-bearing protection. I have advised the patient be nonweightbearing on the left lower extremity in anticipate this for 6 weeks with progression to toe-touch and beyond after that but a total of 6-12 weeks of protected weight-bearing. We also discussed that a pelvis fractures can have a higher risk of DVT or PE and recommend DVT prophylaxis per her admitting team. We discussed that no surgery is indicated at this time. The patient will have follow-up x-rays in 7-10 days with inlet and outlet and AP pelvis views if there is no displacement will continue conservative treatment. Anticipate patient requiring intermediate care as will be mostly transfers and wheelchair chair for the next 2-3 months. Patient understands and agrees with the plan. -DVT prophylaxis with enoxaparin as outpatient. -she is being discharged home with home health. Attempts were made at acceptance to SNF rehab however these were denied. 2. In home ground level fall -she describes chronic dizziness. -brain MRI was unremarkable -telemetry has been unremarkable -TTE was unremarkable. 3. Coronary artery disease -per phone call with Dr. Resendiz, she has severe coronary artery disease that has not been stented due to her chronic kidney disease and comorbidities. -continue aspirin and Lipitor -cardiology has requested echocardiogram and telemetry monitoring. Repeat TTE was performed and showed no significant changes. 4. Chronic C diff infection/diarrhea -continue on Dificid which was apparently recently appealed and then approved by her insurance for outpatient use but she had not been able to pick it up yet. -she does not have an infectious disease doctor or GI specialist. -the next step may be a stool transplant. -no liquid bowel movement since admission. 5. Anemia of CKD -hgb 10.5 -follow CBC 6. Hyperlipidemia -continue atorvastatin 7. Sjogren syndrome, chronic -continue Plaquenil 8. Chronic kidney disease 4 -followed outpatient by Nephrology -avoid nephrotoxic agents and medications. -follow BMP with creatinine improved from 2.6 down to 1.7 and a GFR 29 9. Depression/anxiety -continue sertraline and bedtime lorazepam Status at Discharge Cognitive/behavioral status at discharge: oriented Overall status at discharge: patient is progressing back to baseline Exam Vital Signs (past 8 hours): - 11/29/18 04:01 11/29/18 07:00 11/29/18 07:47 Temperature 98.1 F Pulse Rate 84 73 Respiratory Rate 16 16 Blood Pressure 101/55 L 105/61 Pulse Oximetry 94 95 95 Oxygen Delivery Method Room Air Oxygen Flow Rate 0 Narrative Exam Narrative: GENERAL APPEARANCE: Well developed, well nourished, in no acute distress. SKIN: Inspection of the skin reveals no rashes, ulcerations or petechiae. HEENT: The sclerae were anicteric and conjunctivae were pink and moist. Extraocular movements were intact and pupils were equal, round with normal accommodation. External inspection of the ears and nose showed no scars, lesions, or masses. Lips, teeth, and gums showed normal mucosa. The oral mucosa, hard and soft palate, tongue and posterior pharynx were unremarkable. NECK: Supple and symmetric. There was no thyroid enlargement, and no tenderness, or masses were felt. CHEST: Normal AP diameter and normal contour without any kyphoscoliosis. LUNGS: Auscultation of the lungs revealed no wheezes, rhonchi, or rales. CARDIOVASCULAR: There was a regular rate and rhythm without any murmurs, gallops, rubs. Peripheral pulses were 2+ and symmetric. ABDOMEN: Soft and nontender with normal bowel sounds. No ascites was noted. MUSCULOSKELETAL: L hip tenderness, no ecchymosis present. R posterior ankle tenderness, new. No eccymosis or bruising apparent. No erythema or warmth. EXTREMITIES: No cyanosis, clubbing or edema. NEUROLOGIC: Alert and oriented x 3. Normal affect. L leg is weaker secondary to pain. Sensation to touch was normal. Objective Labs Result Diagrams: 11/26/18 08:15 11/29/18 06:00 Labs: Laboratory Results - last 24 hr 11/29/18 06:00 Sodium 142 Potassium 4.3 Chloride 115 H Carbon Dioxide 16 L BUN 32 H Creatinine 1.70 H Estimated GFR 29.0 L BUN/Creatinine Ratio 18.8 Glucose 94 Calcium 9.1 Discharge Plan Discharge Plan Patient Disposition: Home Health Service Transfer to: [facility] Discharge comment: Your being discharged home after hip fracture, which is being managed non operatively. Due to your immobility, I will be prescribing a medication to prevent blood clots at home. You should continue this at least for 30 days. You should follow up with your primary care provider regarding the appropriate duration. Your kidney function improved to baseline on the day of discharge. You will need a follow-up with Orthopedic surgery in about a week for repeat imaging as per their instructions. You are being discharged with [facility]. Discharge Med Rec/Prescriptions Prescriptions: New enoxaparin [Lovenox] 30 mg/0.3 mL Syringe 30 mg subcut DAILY 30 Days Qty: 9 RF: 0 hydrocodone-acetaminophen 5-325 mg Tablet 1 tab PO Q4HR PRN (Reason: Pain, Moderate (4-6)) 7 Days Qty: 30 RF: 0 Dificid 200 mg Tablet 200 mg PO BID 30 Days Qty: 60 RF: 0 Continued furosemide [Lasix] 20 mg tablet 20 mg PO DAILY RF: 0 omega-3 fatty acids [Fish Oil Concentrate] 1,000 mg capsule 1,000 mg PO DAILY RF: 0 psyllium husk [Metamucil] 0.52 gram capsule 0.52 gram PO DAILY RF: 0 aspirin [Adult Aspirin Regimen] 81 mg tablet,delayed release (DR/EC) 81 mg PO DAILY RF: 0 acetaminophen [Tylenol Extra Strength] 500 mg tablet 500 mg PO QID PRN (Reason: Pain (Scale Score 1-3)) RF: 0 albuterol sulfate [Ventolin HFA] 90 mcg/actuation HFA aerosol inhaler 1 puff INHALATION Q6H PRN (Reason: SOB) RF: 0 atorvastatin 40 mg tablet 40 mg PO DAILY RF: 0 lorazepam 0.5 mg Tablet 0.5 mg PO BEDTIME RF: 0 hydroxychloroquine 200 mg tablet 200 mg PO BEDTIME RF: 0 sertraline 100 mg tablet 200 mg PO BEDTIME RF: 0 (DME) Respironics DreamStation Auto CPAP Qty: 1 RF: 0 Follow up/Referrals: Abigail Hogdes PA-C [Advanced Healthcare Analyst] - Susan Billingsley DO [Primary Care Provider] - Provider Discharge Instructions Diet: Diet as Tolerated Activity: As per Orthopedic instructions Visit Report/Discharge Packet Instructions: Enoxaparin Injection, Hydrocodone Discharge Data Primary Care Provider: Susan Billingsley Attending Provider: Rod Jennings Admit Date/Time: 11/24/18 06:51 Quality VTE Deep Vein Thrombosis/Pulmonary Embolism Present on Admission: No
--- NOTE | 2018-11-29 11:20 | PC.NURSE ---
Addendum entered by Marta Martinez R.N. 11/29/18 11:26: Patient worked with physical therapy and OT. Went over dc instructions with patient and patients daughter. RX for new meds given. Patient aware to call and make follow up appt with SN[facility]. Patient taken via wc to vehicle driven by spouse. Patient had all belongings. Original Note: Patient alert, oriented c/o left groin pain, 7/10 requesting pain medication. Two 5/325 norco given.
--- NOTE | 2018-11-29 12:28 | CM.DPC ---
DCP: continued. Case received and discussed with linen manager Maryan and psychosocial rehabilitation counselor Krysta. Both confirmed that pt was all set up for d/c yesterday late afternoon but did not leave. ORLIN Perez, assigned to pt today as acute care RN, reported that OT and PT worked with pt and family again this morning. All paperwork for d/c was reviewed and pt left for home setting with her daughter. [facility] agreed to call Aby HAWKINS to alert them to the change in d/c date from 03/30 to 03/31.
--- NOTE | 2018-11-29 13:11 | CM.DPC ---
DCP Cont: Called [facility] at [phone] and spoke to Marisela. Informed her of the patient's discharge this morning. Marisela states than ORLIN Patel will be out to today to start service so she is going to contact her and let her know the patient has been discharged. Emma Evangelista, Care Market Development Specialist
--- NOTE | 2018-11-29 20:32 | PT.IPTN ---
Current Diagnoses Other specified fracture of left pubis, initial encounter for closed fracture (11/24/18) Sprain of unspecified ligament of unspecified ankle, initial encounter (11/24/18) Physical Therapy Treatment Note M2 PT-IP Current Condition Start: 11/25/18 18:00 Freq: NEEDED Status: Discharge Protocol: Document 11/26/18 10:08 AW (Rec: 11/26/18 10:34 AW [id number]) Physical Therapy Current Condition Current Condition Evaluation Date 11/26/18 Treatment Diagnosis left iliac crest and left pubic rami fractures, managed conservatively Onset Date 11/24/18 Weight Bearing Status Weight Bearing Status Non-Weight Bearing Allowed Weight Bearing Amount (enter % NWB LLE or #) (%) M3 PT-IP Subjective Start: 11/25/18 18:00 Freq: NEEDED Status: Discharge Protocol: Document 11/29/18 10:05 HH (Rec: 11/29/18 20:31 HH [id number]) Subjective Physical Therapy Visit Type Type Treatment Note Visit Start Time 10:05 Visit Stop Time 10:30 Total Visit Minutes 25 Notes MICHEAL Hodges had ordered an ankle stabilizer for R ankle to be sent home. Pt's dtr attened CG training session Number of RN EMPLOYEE HEALTH Visits 0 Physical Therapy Visit Comments Patient Comments Pt sitting in chair and agreeable to mobilize with PT Therapy Pain Assessment Pain When Pain Assessed During Mobility Pain Present Pain Present Pain Reported M4 PT-IP Mobility and Gait Start: 11/25/18 18:00 Freq: NEEDED Status: Discharge Protocol: Document 11/29/18 10:05 HH (Rec: 11/29/18 20:31 HH [id number]) PT-Transfer Assessment Sit to and From Stand Sit to and from Stand Contact Guard Assistance, Minimal Assistance,1 Person Assistance Equipment Transfer Assistive Device Gait Belt,Front Wheeled Walker Orthotic/Prosthetic Devices or Brace: No Transfers Transfer Destination Bed,Chair,Bedside Commode Transfer Technique single leg stand pivot Transfer Ability Level of Assist Contact Guard Assistance,1 Person Assistance,Use of Upper Extremities Comments Mobility Comments Educated to stand on pt's L side during transfer to support by using gait belt with one hand, and the other hand stabilizing FWW. Pt did stand pivot transfer for chair <>BSC x 2 times with dtr CGA. Pt tends to be slower during transition of hand placement between armrest from chair to walker. Gait Assessment Comments Gait Comments unable Stair Climbing Assessment Comments Stair Climbing Comments unable M5 PT-IP Objective Assessments Start: 11/25/18 18:00 Freq: NEEDED Status: Discharge Protocol: Document 11/26/18 10:08 AW (Rec: 11/26/18 10:34 AW [id number]) Orientation Orientation/Cognition Level of Alertness Alert Orientation Name,Month,Place,Situation Language Function Ability No Deficits Noted Safety Awareness Decreased Safety Awareness Memory Description No Deficits Noted Comments Pt able to verbalize NWB precautions, but required verbal cues and demonstration to avoid placing left foot on top of right foot in standing. Gross Range of Motion Upper Extremity ROM Assessment Within Functional Limits Lower Extremity ROM Assessment Left Impaired Strength Upper Extremity Strength Assessment Bilaterally Impaired Lower Extremity Strength Assessment Bilaterally Impaired Comments Strength Comments UE strength 4-/5 bilaterally. RLE knee extension 5/5, 4/5 in all other muscle groups. LLE not tested. Coordination Assessment Gross Coordination Gross Coordination WNL Sensation Assessment Sensation Gross Sensation WNL Muscle Tone Muscle Tone WNL Yes M6 PT-IP Treatment Start: 11/25/18 18:00 Freq: NEEDED Status: Discharge Protocol: Document 11/29/18 10:05 HH (Rec: 11/29/18 20:32 HH [email or web address]) Physical Therapy Treatment Education Brace Education [place],Patient, Caregiver Equipment Issued Equipment Type and Company ankle brace with lateral support. M7 PT-IP Assessment and Plan Start: 11/25/18 18:00 Freq: NEEDED Status: Discharge Protocol: Document 11/29/18 10:05 HH (Rec: 11/29/18 20:31 [id number]) PT Summary Assessment and Plan Potential Rehabilitation Potential Good Status of Condition at Evaluation Evolving Summary Impairments Pain,ROM,Strength,Balance,Bed Mobility,Transfers,Gait, Activity Tolerance Assessment Summary Assisted and educated dtr to xenia ankle brace on R LE today . Also supervised dtr to assist pt during transfers. Pt will be d/c home with family assistance and HH to improve mobility and strength. Goals Bed Mobility Goal Contact Guard Assistance Transfer Goal Contact Guard Assistance Frequency of Treatment Frequency Of Treatment Twice a Day Treatment Plan Physical Therapy Treatment Plan Bed Mobility Training,Transfer Training,Gait Training, Therapeutic Exercise,Balance Retraining,Discharge Planning, Hot or Cold Pack,Neuromuscular Re-ed,Coordination Retraining ,Manual Therapy Recommendations To Nursing Amount of Assist Needed 1 Person Assist Discharge Recommendations PT Discharge Recommendations Home with 24/7 Assist,Home Health Other Discharge Recommendations HH with PT,OT and bath aide.
== END 2018-11-29 11:27 | disposition home health service (06) ==
LOC: ED 06:45 → AC 07:05
PROVIDERS: Family Medicine; Internal Medicine; Admitting Provider Nurse Practitioner Adult Health; Emergency Provider Emergency Medicine; PCP Family Medicine; Visit Provider Nurse Practitioner Adult Health
DX: S32.592A Other specified fracture of left pubis, initial encounter for closed fracture (principal); M25.552 Pain in left hip; W18.39XA Other fall on same level, initial encounter; J44.9 Chronic obstructive pulmonary disease, unspecified; F17.210 Nicotine dependence, cigarettes, uncomplicated; N18.6 End stage renal disease; D63.1 Anemia in chronic kidney disease; M35.00 Sjogren syndrome, unspecified; I25.10 Atherosclerotic heart disease of native coronary artery without angina pectoris; A04.72 Enterocolitis due to Clostridium difficile, not specified as recurrent; E78.5 Hyperlipidemia, unspecified; F32.9 Major depressive disorder, single episode, unspecified; F41.9 Anxiety disorder, unspecified; R42 Dizziness and giddiness
CPT/HCPCS: 36415; 70551; 72170; 72192; 80048; 85025; 96360; 96361; 96374; 96375; 97162; 97165; 97530; 97535; 99283; 99284; G0378; C8929; J1650; J2270; J3010; J7050

== ENCOUNTER 2018-12-30 21:37 | Emergency (ER) | payer MEDICARE, OTHER, SELFPAY ==
[2018-11-24 10:47] VITALS: BMI 20.2
--- NOTE | 2018-12-30 21:40 | DI.RAD.S_ITS ---
PROCEDURE: XR HIP W PEL IF DONE LT 2V INDICATIONS: fall pain TECHNIQUE: AP pelvis with lateral view(s) of the left hip(s). COMPARISON: [facility], CT, CT PEL WO CON, 11/24/2018, 5:53. FINDINGS: Bones: This patient has healing fractures of the left acetabulum, the left inferior pubic ramus, and the left iliac crest. These fractures are much better seen on the recent prior CT examination. No fractures or dislocations can be seen. There is a left os acetabula is seen. Soft tissues: The visualized bowel gas pattern is normal. No suspicious soft tissue calcifications. IMPRESSION: Healing left-sided fractures are seen, which are much better demonstrated on the recent prior CT examination. No fracture can be seen. Note: No significant discrepancy from the preliminary report. Dictated by: Malcom Gavin M.D. on 12/31/2018 at 6:12 Approved by: Malcom Gavin M.D. on 12/31/2018 at 6:15
[2018-12-30 21:49] VITALS: BP 109/64; PULSE 82; RESP 16; TEMP 37.4; O2SAT 98; BMI 21.4
--- NOTE | 2018-12-30 23:10 | ED.EXTPRO ---
HPI - Extremity Problem General Chief complaint: Extremity Problem,Nontraumatic Stated complaint: Acute Pain Time Seen by Provider: 12/30/18 21:40 Source: patient and family Mode of arrival: EMS History of Present Illness HPI Narrative: Patient is a 78-year-old female who presents with left hip pain. She was diagnosed and admitted a month ago with left-sided pelvic fracture. She has been in rehab. This is actually the 1st week that she has been able to tolerate his movement and decreasing her pain meds. However over the last 2-3 days she has been having increasing pain. Sitting more in the chair and being less active. She has not had any recurrent falls. She says everywhere you touch she has pain in that left hip MD Complaint: extremity pain Onset (ago): day(s) (2) Pain Consistency: constant Related Data Home Medications Medication Instructions Recorded Confirmed omega-3 fatty acids 1,000 mg 1,000 mg PO DAILY 11/18/17 12/11/18 capsule Respironics DreamStation Auto CPAP #1 ea 04/21/18 12/11/18 acetaminophen 500 mg tablet 500 mg PO QID PRN 07/18/18 12/11/18 albuterol sulfate 90 mcg/actuation 1 puff INHALATION Q6H PRN 07/18/18 12/11/18 aerosol inhaler aspirin 81 mg tablet,delayed 81 mg PO DAILY 07/18/18 12/11/18 release psyllium husk 0.52 gram capsule 0.52 gram PO DAILY 07/18/18 12/11/18 furosemide 20 mg tablet 20 mg PO DAILY tab 07/26/18 12/11/18 atorvastatin 40 mg PO DAILY 11/24/18 12/11/18 hydroxychloroquine 200 mg PO BEDTIME 11/24/18 12/11/18 lorazepam 0.5 mg PO BEDTIME 11/24/18 12/11/18 sertraline 200 mg PO BEDTIME 11/24/18 12/11/18 Previous Rx's Medication Instructions Recorded fidaxomicin [Dificid] 200 mg PO BID 30 Days #60 tab 11/28/18 fidaxomicin 200 mg PO BID 7 Days #14 tab 11/29/18 enoxaparin 30 mg/0.3 mL 30 mg SUBCUT DAILY 30 Days #9 ml 12/11/18 subcutaneous syringe hydrocodone 5 mg-acetaminophen 325 2 tab PO Q4HR PRN 14 Days #75 tab 12/11/18 mg tablet Allergies Allergy/AdvReac Type Severity Reaction Status Date / Time Penicillins [PENICILLINS] Allergy Severe hives Verified 12/11/18 15:20 Sulfa (Sulfonamide Allergy Severe hives Verified 12/11/18 15:20 Antibiotics) [SULFA (SULFONAMIDE ANTIBIOTICS)] codeine [CODEINE] AdvReac Mild difficulty Verified 12/11/18 15:20 sleeping Review of Systems Review of Systems Narrative: GENERAL: Denies chills, fatigue, malaise, fever, sweats, travel HEENT: Denies sinus pain, ear pain, sore throat, difficulty swallowing, neck pain RESPIRATORY: Denies dyspnea, cough, wheezing, hemoptysis, sputum. CARDIOVASCULAR: Denies chest pain, palpitations, orthopnea, edema GASTROINTESTINAL: Denies nausea, vomiting, abdominal pain, diarrhea, constipation, melena. : Denies dysuria, frequency, incontinence, hematuria, urinary retention, flank pain. MUSCULOSKELETAL: See HPI SKIN: No rash, no erythema, no pruritus NEUROLOGIC: Denies weakness, dizziness, headache, numbness, change in speech, confusion PSYCHIATRIC: No concerning psychosocial issues. 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 leisure activities: reading, volunteer work and other Smoking Status: Never smoker Tobacco: How many years used: 0 quit status: quit date established second hand exposure: Yes (Childhood and as young adult.) alcohol intake: never substance use type: does not use alcohol intake frequency: 0-2 drinks per day Substance Use Type: does not use Exam Initial Vital Signs Initial Vital Signs: Vital Signs Temperature 99.3 F 12/30/18 21:49 Pulse Rate 82 12/30/18 21:49 Respiratory Rate 16 12/30/18 21:49 Blood Pressure 109/64 10/12/19 21:49 Pulse Oximetry 98 12/30/18 21:49 GENERAL: [Well-appearing, well-nourished] and in [no acute] distress. HEENT: Head atraumatic,EOMI, pupils reactive, face symmetric, [moist] mucous membranes [EARS:] [Tympanic membranes visualized, no erythema or bulging, no hemotympanum] [PHARYNX:] [No erythema, no tonsillar exudate, no cervical lymphadenopathy] CARDIOVASCULAR: Regular rate and rhythm without murmurs, rubs or gallops. RESPIRATORY: Breath sounds equal bilaterally, no wheezes rales or rhonchi. ABDOMEN: Soft, nontender. Normoactive bowel sounds all 4 quadrants. No guarding or rebound. EXTREMITIES: Normal range of motion, no clubbing or edema. Neurovascularly intact NEUROLOGICAL: Alert and oriented x4.Normal gait and speech. Cranial nerves II through XII grossly intact. SKIN: Warm, dry, no laceration, no petechiae, no rashes or lesions. Course Orders Ordered: ED Orders 12/30/18 21:40 XR hip w pel if done LT 2V Stat Discontinued Medications Hydromorphone HCl (Dilaudid) 0.5 mg SUBCUT NOW ONE Stop: 12/30/18 23:09 Last Admin: 12/31/18 00:22 Dose: 0.5 mg Documented by: MORGAN Vital Signs Vital signs: Vital Signs - 8 hr 12/31/18 01:13 Pulse Rate 79 Respiratory Rate 16 Blood Pressure 97/54 L Pulse Oximetry 96 MDM - Extremity (Nontraumatic) Imaging Data Left hip x-ray: Attestation: I personally reviewed and interpreted this imaging study as follows: My impression: No new fracture evidence of healing fractures MDM Narrative Medical decision making narrative: The patient able to get to commode with assistance of pain is much better after Dilaudid. Family at bedside ready to take her home. Discharge Plan Departure Patient Disposition: Home Clinical Impression: Closed pelvic fracture Qualifiers: Encounter type: subsequent encounter Pelvic bone location: multiple parts Fracture alignment: with stable disruption of pelvic ring Fracture healing: with routine healing Qualified Code(s): S32.810D - Multiple fractures of pelvis with stable disruption of pelvic ring, subsequent encounter for fracture with routine healing Discharge Date/Time: 12/31/18 01:13 Instructions: Pelvic Fracture Activity Restrictions/Additional Instructions: *You have been diagnosed with pelvic fracture *What to do: Increased pain today is likely due from increased use. Overall x-ray does show evidence of healing no new fractures. However this still will take time to heal completely. *Continue to take medications as directed Continue pain medications as previously prescribed *Follow up with your primary care provider in 2-3 days *Return to ER if you should have increasing pain, weakness in legs, increased falls or any new, worsening or concerning symptoms Prescriptions: No Action furosemide [Lasix] 20 mg tablet 20 mg PO DAILY RF: 0 omega-3 fatty acids [Fish Oil Concentrate] 1,000 mg capsule 1,000 mg PO DAILY RF: 0 psyllium husk [Metamucil] 0.52 gram capsule 0.52 gram PO DAILY RF: 0 aspirin [Adult Aspirin Regimen] 81 mg tablet,delayed release (DR/EC) 81 mg PO DAILY RF: 0 acetaminophen [Tylenol Extra Strength] 500 mg tablet 500 mg PO QID PRN (Reason: Pain (Scale Score 1-3)) RF: 0 albuterol sulfate [Ventolin HFA] 90 mcg/actuation HFA aerosol inhaler 1 puff INHALATION Q6H PRN (Reason: SOB) RF: 0 enoxaparin [Lovenox] 30 mg/0.3 mL syringe 30 mg subcut DAILY 30 Days Qty: 9 RF: 0 hydrocodone-acetaminophen 5-325 mg tablet 2 tab PO Q4HR PRN (Reason: Pain, Severe (7-10)) 14 Days Qty: 75 RF: 0 atorvastatin 40 mg tablet 40 mg PO DAILY RF: 0 lorazepam 0.5 mg Tablet 0.5 mg PO BEDTIME RF: 0 hydroxychloroquine 200 mg tablet 200 mg PO BEDTIME RF: 0 sertraline 100 mg tablet 200 mg PO BEDTIME RF: 0 Dificid 200 mg Tablet 200 mg PO BID 30 Days Qty: 60 RF: 0 fidaxomicin 200 mg tablet 200 mg PO BID 7 Days Qty: 14 RF: 0 (DME) Respironics DreamStation Auto CPAP Qty: 1 RF: 0 Referrals: Susan Billingsley, [Primary Care Provider] -
[2018-12-31] MEDS: HYDROMORPHONE 2 MG INJ 0.5 MG SUBCUT (00:22)
[2018-12-31 01:13] VITALS: BP 97/54; PULSE 79; RESP 16; O2SAT 96
== END 2018-12-31 01:13 | disposition home or self-care (01) ==
PROVIDERS: Emergency Provider Emergency Medicine; PCP Family Medicine
DX: S32.810D Multiple fractures of pelvis with stable disruption of pelvic ring, subsequent encounter for fracture with routine healing (principal)
CPT/HCPCS: 73502; 96372; 99282; 99283; J1170

== ENCOUNTER → 2019-02-20 15:23 | Outpatient (CLI) | payer MEDICARE, OTHER, SELFPAY ==
[2018-11-24 10:47] VITALS: BMI 20.2
== END ==
PROVIDERS: PCP Family Medicine; Visit Provider Physician Assistant
DX: A04.72 Enterocolitis due to Clostridium difficile, not specified as recurrent (principal)
CPT/HCPCS: 87493

== ENCOUNTER → 2019-03-02 10:32 | Outpatient (CLI) | payer MEDICARE, OTHER, SELFPAY ==
[2018-11-24 10:47] VITALS: BMI 20.2
[2019-03-02 12:16] LABS: BUN Creatinine Ratio 14.7 (6-22); Blood Urea Nitrogen 28 mg/dL (7-17); Calcium 9.4 mg/dL (8.4-10.2); Carbon Dioxide 20 mmol/L (22-32); Chloride 111 mmol/L (98-107); Estimated Glomerular Filt Rate 25.5 mL/min (>60); Glucose 77 mg/dL (80-110); HEMOLYSIS < 15 (0-50); Potassium 4.4 mmol/L (3.4-5.1); Sodium 143 mmol/L (137-145)
== END ==
PROVIDERS: Family Provider Family Medicine; PCP Family Medicine; Visit Provider Internal Medicine Nephrology
DX: N05.9 Unspecified nephritic syndrome with unspecified morphologic changes (principal)
CPT/HCPCS: 36415; 80048

== ENCOUNTER → 2019-04-12 10:27 | Outpatient (CLI) | payer MEDICARE, OTHER, SELFPAY ==
[2018-11-24 10:47] VITALS: BMI 20.2
[2019-04-12 10:51] LABS: Add Manual Diff / Slide Review NO; Basophils Absolute Auto 0 /uL (0-100); Basophils Percent Auto 0.7 % (0-2); Eosinophils Absolute Auto 200 /uL (0-450); Hematocrit 35.6 % (36-46); Hemoglobin 11.8 g/dL (12.0-16.0); Lymphocytes Absolute Auto 1400 /uL (1100-4500); Lymphocytes Percent Auto 29.3 % (25-40); Mean Corpuscular HGB Conc 33.2 % (30-36); Mean Corpuscular Hemoglobin 33.7 PG (26-34); Mean Corpuscular Volume 101.5 fL (80-100); Monocytes Absolute Auto 600 /uL (0-900); Monocytes Percent Auto 12.1 % (3-14); Neutrophils Absolute Auto 2700 /uL (1500-7000); Neutrophils Percent Auto 54.9 % (50-75); Platelet Count 242 X10^3/uL (150-400); Red Blood Cell Count 3.51 X10^6/uL (4.0-5.2); Red Cell Distribution Width 14.2 % (11.6-14.8); White Blood Cell Count 4.9 X10^3/uL (4.5-11.0)
== END ==
PROVIDERS: PCP Nurse Practitioner; Visit Provider Nurse Practitioner
DX: D64.9 Anemia, unspecified (principal); N18.4 Chronic kidney disease, stage 4 (severe); R42 Dizziness and giddiness
CPT/HCPCS: 36415; 85025

== ENCOUNTER → 2019-09-13 11:35 | Outpatient (CLI) | payer MEDICARE, OTHER, SELFPAY ==
[2019-08-23 16:19] VITALS: BMI 20.2
[2019-09-13 12:18] LABS: Add Manual Diff / Slide Review NO; Basophils Absolute Auto 0 /uL (0-100); Basophils Percent Auto 0.5 % (0-2); Eosinophils Absolute Auto 100 /uL (0-450); Eosinophils Percent Auto 1.7 % (2-4); Hematocrit 32.1 % (36-46); Hemoglobin 10.9 g/dL (12.0-16.0); Lymphocytes Absolute Auto 1000 /uL (1100-4500); Lymphocytes Percent Auto 19.3 % (25-40); Mean Corpuscular HGB Conc 34.1 % (30-36); Mean Corpuscular Hemoglobin 35.5 PG (26-34); Mean Corpuscular Volume 104.2 fL (80-100); Monocytes Absolute Auto 500 /uL (0-900); Monocytes Percent Auto 9.4 % (3-14); Neutrophils Absolute Auto 3700 /uL (1500-7000); Neutrophils Percent Auto 69.1 % (50-75); Platelet Count 210 X10^3/uL (150-400); Red Blood Cell Count 3.08 X10^6/uL (4.0-5.2); Red Cell Distribution Width 14.2 % (11.6-14.8); White Blood Cell Count 5.4 X10^3/uL (4.5-11.0)
[2019-09-13 12:24] LABS: Appearance Urine UA CLEAR; Bilirubin Urine UA NEGATIVE (NEGATIVE); Color Urine UA YELLOW; Glucose Urine UA NEGATIVE (Negative); Ketones Urine UA NEGATIVE (NEGATIVE); Leukocyte Esterase Urine UA TRACE (NEGATIVE); Nitrite Urine UA NEGATIVE (Negative); Occult Blood Urine UA NEGATIVE (Negative); Protein Urine UA NEGATIVE (Negative); Specific Gravity Urine UA <=1.005 (1.000-1.035); Urobilinogen Urine UA 0.2 E.U./dL (0.2)
[2019-09-13 12:25] LABS: Bacteria Urine None Seen; RBC Urine None Seen (0-5/HPF); WBC Urine None Seen (0-5/HPF); pH Urine UA 5.5 (4.5-8.0)
[2019-09-13 12:40] LABS: Erythrocyte Sedimentation Rate 18 MM/HR (0-20)
[2019-09-13 12:44] LABS: Culture Indicated Urine Cult Not Indicated; Urine Comments Microscopic Normal
[2019-09-13 12:55] LABS: Alanine Aminotransferase 26 IU/L (<35); Albumin 4.1 g/dL (3.5-5.0); Albumin Globulin Ratio 1.5 (1.0-2.8); Alkaline Phosphatase 114 U/L (38-126); Aspartate Aminotransferase 39 IU/L (14-36); BUN Creatinine Ratio 11.9 (6-22); Bilirubin Total 0.3 mg/dL (0.2-1.3); Blood Urea Nitrogen 28 mg/dL (7-17); Calcium 9.3 mg/dL (8.4-10.2); Carbon Dioxide 19 mmol/L (22-32); Chloride 114 mmol/L (98-107); Cholesterol 123 mg/dL (140-199); Creatinine Urine Random 32.7 mg/dL; Estimated Glomerular Filt Rate 19.9 mL/min (>60); Globulin 2.7 g/dL (1.7-4.1); Glucose 76 mg/dL (80-110); HDL Cholesterol 64 mg/dL (40-60); HEMOLYSIS < 15 (0-50); LDL Cholesterol Calculated 40 mg/dL (<100); Phosphorous 5.2 mg/dL (2.8-4.1); Potassium 5.2 mmol/L (3.4-5.1); Sodium 141 mmol/L (137-145); Total Protein 6.8 g/dL (6.3-8.2); Triglycerides 97 mg/dL (35-150)
[2019-09-13 12:57] LABS: NT-proBNP (BNP-Adult 18+) 1690 pg/mL (<450)
[2019-09-13 13:00] LABS: Microalbumi Creatinin Ratio Ur 18.3 ug/mg CR (<30); Microalbumin Urine Random < 0.6 mg/dL (0-1.6)
[2019-09-13 13:19] LABS: TSH w/ Reflex to FT4 2.16 uIU/mL (0.47-4.68)
[2019-09-14 08:18] LABS: Calcium 6.9; Parathyroid Hormone, Intact 41
[2019-09-14 08:47] LABS: HEMOLYSIS < 15 (0-50); Iron 99 ug/dL (37-170)
[2019-09-14 08:57] LABS: Percent Iron Saturation 37 % (15-50); Total Iron Binding Capacity 271 ug/dL (265-497); Transferrin 204 mg/dL (206-381)
[2019-09-14 09:37] LABS: Vitamin B12 749 pg/mL (239-931)
== END ==
PROVIDERS: PCP Internal Medicine; Referring Provider Internal Medicine; Visit Provider Internal Medicine
DX: M35.01 Sjogren syndrome with keratoconjunctivitis (principal); N18.9 Chronic kidney disease, unspecified; E78.2 Mixed hyperlipidemia; R06.00 Dyspnea, unspecified; N05.9 Unspecified nephritic syndrome with unspecified morphologic changes; I50.32 Chronic diastolic (congestive) heart failure; D70.9 Neutropenia, unspecified; D63.1 Anemia in chronic kidney disease; E83.30 Disorder of phosphorus metabolism, unspecified; N25.81 Secondary hyperparathyroidism of renal origin
CPT/HCPCS: 36415; 80053; 80061; 81003; 81015; 82043; 82310; 82570; 82607; 83540; 83550; 83880; 83970; 84100; 84443; 85025; 85651

== ENCOUNTER → 2019-10-24 13:31 | Outpatient (CLI) | payer MEDICARE, OTHER, SELFPAY ==
[2019-08-23 16:19] VITALS: BMI 20.2
[2019-10-24 14:32] LABS: BUN Creatinine Ratio 19.2 (6-22); Blood Urea Nitrogen 41 mg/dL (7-17); Calcium 9.5 mg/dL (8.4-10.2); Carbon Dioxide 20 mmol/L (22-32); Chloride 109 mmol/L (98-107); Estimated Glomerular Filt Rate 22.2 mL/min (>60); Glucose 94 mg/dL (80-110); HEMOLYSIS < 15 (0-50); Potassium 4.4 mmol/L (3.4-5.1); Sodium 139 mmol/L (137-145)
== END ==
PROVIDERS: PCP Internal Medicine; Referring Provider Internal Medicine Nephrology; Visit Provider Internal Medicine Nephrology
DX: N05.9 Unspecified nephritic syndrome with unspecified morphologic changes (principal)
CPT/HCPCS: 36415; 80048

== ENCOUNTER → 2019-11-06 15:48 | Outpatient (CLI) | payer MEDICARE, OTHER, SELFPAY ==
[2019-08-23 16:19] VITALS: BMI 20.2
[2019-11-07 09:34] LABS: COVID19 Sendout Not Detected (Not Detect)
== END ==
PROVIDERS: PCP Internal Medicine; Visit Provider Physician Assistant
DX: Z11.59 Encounter for screening for other viral diseases (principal)
CPT/HCPCS: 87635

== ENCOUNTER → 2019-11-27 09:04 | Outpatient (CLI) | payer MEDICARE, OTHER, SELFPAY ==
[2019-08-23 16:19] VITALS: BMI 20.2
[2019-11-27 12:53] LABS: Clostridium Difficile Tox PCR Positive for C. diff
[2019-11-28 16:29] LABS: C difficie Toxins A and B, EIA Negative (Negative)
== END ==
PROVIDERS: PCP Internal Medicine; Referring Provider Internal Medicine; Visit Provider Internal Medicine
DX: R19.7 Diarrhea, unspecified (principal)
CPT/HCPCS: 87493

== ENCOUNTER → 2019-11-29 13:43 | Outpatient (CLI) | payer MEDICARE, OTHER, SELFPAY ==
[2019-08-23 16:19] VITALS: BMI 20.2
--- NOTE | 2019-11-30 14:10 | DI.ECHO.S_ITS ---
Echocardiogram Report + + :Name: KIRTI EDWARDS Study Date: 11/29/2019 Height: 60 in : :[facility] Weight: 110 lb : : Gender: Female BSA: 1.4 m2 : :: 1940 Age: 79 yrs BP: 123/72 mmHg: :Reason For Study: SHORTNESS OF BREATH : :Ordering Physician: Aundrea : :Martín Miller Performed By: Lani Tan : :Referring: AUNDREA JENKINS : + + Interpretation Summary Left ventricular wall thickness is mildly increased. There is increased echogenicity thoughout the myocardium. Left ventricular systolic function is normal without focal wall motion abnormalities. The ejection fraction is estimated to be 60-65%. LVEF has not changed since prior studies. The right ventricle is normal in size and function. Pulmonary artery pressures cannot be estimated because of the lack of a measurable TR jet velocity but the IVC suggests a CVP of around 3 mmHg. The left atrial size is normal. Right atrial size is normal. There is no significant valvular heart disease. The aortic root is normal size. Procedure: A two-dimensional transthoracic echocardiogram with color flow and Doppler was performed. The study quality was technically adequate. There is no prior echocardiogram noted for this patient. Left Ventricle: The left ventricle is normal in size. Left ventricular wall thickness is mildly increased. There is increased echogenicity thoughout the myocardium. Left ventricular systolic function is normal without focal wall motion abnormalities. The ejection fraction is estimated to be 60-65%. Diastolic function could not be accurately assessed due to contradictory data. Right Ventricle: The right ventricle is normal in size and function. Atria: The left atrial size is normal. Right atrial size is normal. There is no Doppler evidence for an interatrial shunt. Mitral Valve: The mitral valve leaflets appear mildly thickened, but open well. There is trace mitral regurgitation. Aortic Valve: The aortic valve is trileaflet. The aortic valve opens well. There is no aortic valve stenosis. No aortic regurgitation is present. Tricuspid Valve: The tricuspid valve is normal in structure and function. Pulmonary artery pressures cannot be estimated because of the lack of a measurable TR jet velocity but the IVC suggests a CVP of around 3 mmHg. There is a trace or physiologic amount of tricuspid regurgitation. Pulmonic Valve: The pulmonic valve leaflets are thin and pliable; valve motion is normal. There is mild pulmonic regurgitation. There is no significant valvular heart disease. Great Vessels: The aortic root is normal size. The ascending aorta is normal in size. The IVC is of normal diameter and collapses greater than 50% with a sniff. This suggests a low right atrial pressure of 3 mm Hg. Pericardium/ Pleura There is no pericardial effusion. There is no pleural effusion. MMode/2D Measurements & Calculations LVIDd: 4.3 cm LVOT diam: 1.9 cm LVIDs: 2.7 cm Ao root diam: 2.9 cm FS: 37.2 % asc Aorta Diam: 3.0 cm EPSS: 0.93 cm Ao Arch Diam (Prox Trans): 2.2 cm IVSd: 1.2 cm LVPWd: 1.1 cm LV ge. diameter/BSA (cm/m^2): 3.0 LV sys. diameter/BSA (cm/m^2): 1.9 LA A2 area: 15.7 cm2 RA long axis: 4.6 cm LA A4 area: 13.6 cm2 RA area: 11.8 cm2 LA length (vol): 4.4 cm RA vol: 25.6 ml LA vol: 40.8 ml RA : 17.7 ml/m2 LA vol index: 28.2 ml/m2 IVC diam: 0.89 cm RVD1 (basal): 2.8 cm TAPSE: 1.8 cm Doppler Measurements & Calculations Ao V2 max: 116.0 cm/sec LVOT Max Dionicio: 74.1 cm/sec Ao V2 mean: 78.2 cm/sec LV V1 max P.2 mmHg Ao max P.4 mmHg LV V1 VTI: 15.6 cm Ao mean P.8 mmHg DUNIA(I,D): 1.9 cm2 Ao V2 VTI: 22.5 cm DUNIA(V,D): 1.8 cm2 sev ratio: 0.69 DUNIA indexed to BSA (cm^2/m^2): 1.3 MV E max dionicio: 84.9 cm/sec PA V2 max: 91.3 cm/sec MV A max dionicio: 91.6 cm/sec PA V2 mean: 61.1 cm/sec MV E/A: 0.93 PA mean P.7 mmHg Med Peak E' Dionicio: 4.7 cm/sec PA pr(Accel): 5.4 mmHg E/E' med: 17.9 Lat Peak E' Dionicio: 5.4 cm/sec E/E' lat: 15.8 E/e' average: 16.8 MV dec time: 0.23 sec SV(LVOT): 43.7 ml Reading Physician:04:21 PM
== END ==
PROVIDERS: PCP Internal Medicine; Referring Provider Internal Medicine; Visit Provider Internal Medicine
DX: I37.1 Nonrheumatic pulmonary valve insufficiency (principal); R06.02 Shortness of breath
CPT/HCPCS: 93306

== ENCOUNTER → 2019-12-07 14:01 | Outpatient (CLI) | payer MEDICARE, OTHER, SELFPAY ==
[2019-08-23 16:19] VITALS: BMI 20.2
== END ==
PROVIDERS: PCP Internal Medicine; Referring Provider Internal Medicine; Visit Provider Internal Medicine
DX: M81.0 Age-related osteoporosis without current pathological fracture (principal); Z78.0 Asymptomatic menopausal state; K92.9 Disease of digestive system, unspecified
CPT/HCPCS: 77080

== ENCOUNTER → 2020-01-17 15:44 | Outpatient (ROUT) | payer MEDICARE, OTHER, SELFPAY ==
[2020-01-16 09:25] VITALS: BMI 20.2
[2020-01-17 16:07] LABS: Add Manual Diff / Slide Review NO; Basophils Absolute Auto 0 /uL (0-100); Basophils Percent Auto 0.6 % (0-2); Eosinophils Absolute Auto 100 /uL (0-450); Eosinophils Percent Auto 2.3 % (2-4); Hematocrit 34.2 % (36-46); Hemoglobin 11.4 g/dL (12.0-16.0); Lymphocytes Absolute Auto 1100 /uL (1100-4500); Lymphocytes Percent Auto 24.8 % (25-40); Mean Corpuscular HGB Conc 33.2 % (30-36); Mean Corpuscular Hemoglobin 33.3 PG (26-34); Mean Corpuscular Volume 100.3 fL (80-100); Monocytes Absolute Auto 400 /uL (0-900); Neutrophils Absolute Auto 2700 /uL (1500-7000); Neutrophils Percent Auto 62.3 % (50-75); Platelet Count 197 X10^3/uL (150-400); Red Blood Cell Count 3.41 X10^6/uL (4.0-5.2); Red Cell Distribution Width 12.9 % (11.6-14.8); White Blood Cell Count 4.4 X10^3/uL (4.5-11.0)
[2020-01-17 16:22] LABS: Blood Urea Nitrogen 42 mg/dL (7-17); Carbon Dioxide 27 mmol/L (22-32); Chloride 109 mmol/L (98-107); Estimated Glomerular Filt Rate 25.3 mL/min (>60); Glucose 85 mg/dL (80-110); HEMOLYSIS < 15 (0-50); Potassium 4.6 mmol/L (3.4-5.1); Sodium 141 mmol/L (137-145)
[2020-01-17 16:26] LABS: Erythrocyte Sedimentation Rate 16 MM/HR (0-20)
[2020-01-17 16:34] LABS: C-Reactive Protein Quant < 0.5 mg/dL (<1.0)
== END ==
PROVIDERS: PCP Internal Medicine; Visit Provider Internal Medicine
DX: N18.4 Chronic kidney disease, stage 4 (severe) (principal); M35.3 Polymyalgia rheumatica
CPT/HCPCS: 80048; 85025; 85651; 86140

== ENCOUNTER → 2020-01-24 08:59 | Outpatient (CLI) | payer MEDICARE, OTHER, SELFPAY ==
[2020-01-16 09:25] VITALS: BMI 20.2
[2020-01-24 11:32] LABS: Cholesterol 129 mg/dL (140-199); HDL Cholesterol 80 mg/dL (40-60); LDL Cholesterol Calculated 37 mg/dL (<100); Triglycerides 61 mg/dL (35-150)
== END ==
PROVIDERS: PCP Internal Medicine; Referring Provider Internal Medicine; Visit Provider Internal Medicine
DX: E78.5 Hyperlipidemia, unspecified (principal)
CPT/HCPCS: 36415; 80061

== ENCOUNTER → 2020-03-12 14:33 | Outpatient (ROUT) | payer MEDICARE, OTHER, SELFPAY ==
[2020-01-16 09:25] VITALS: BMI 20.2
== END ==
PROVIDERS: PCP Internal Medicine; Visit Provider Internal Medicine
DX: R39.9 Unspecified symptoms and signs involving the genitourinary system (principal)
CPT/HCPCS: 87086

== ENCOUNTER → 2020-03-19 12:13 | Outpatient (CLI) | payer MEDICARE, OTHER, SELFPAY ==
[2020-01-16 09:25] VITALS: BMI 20.2
[2020-03-19 13:31] LABS: Add Manual Diff / Slide Review NO; Basophils Absolute Auto 0 /uL (0-100); Basophils Percent Auto 0.5 % (0-2); Eosinophils Absolute Auto 100 /uL (0-450); Eosinophils Percent Auto 2.7 % (2-4); Hematocrit 34.4 % (36-46); Hemoglobin 11.5 g/dL (12.0-16.0); Lymphocytes Absolute Auto 1200 /uL (1100-4500); Lymphocytes Percent Auto 32.9 % (25-40); Mean Corpuscular HGB Conc 33.5 % (30-36); Mean Corpuscular Hemoglobin 33.9 PG (26-34); Mean Corpuscular Volume 101.2 fL (80-100); Monocytes Absolute Auto 400 /uL (0-900); Monocytes Percent Auto 11.5 % (3-14); Neutrophils Absolute Auto 1900 /uL (1500-7000); Neutrophils Percent Auto 52.4 % (50-75); Platelet Count 220 X10^3/uL (150-400); Red Cell Distribution Width 13.2 % (11.6-14.8); White Blood Cell Count 3.7 X10^3/uL (4.5-11.0)
[2020-03-19 13:47] LABS: Alanine Aminotransferase 22 IU/L (<35); Albumin 3.9 g/dL (3.5-5.0); Albumin Globulin Ratio 1.3 (1.0-2.8); Alkaline Phosphatase 95 U/L (38-126); Aspartate Aminotransferase 38 IU/L (14-36); Bilirubin Total 0.3 mg/dL (0.2-1.3); Blood Urea Nitrogen 36 mg/dL (7-17); Calcium 9.4 mg/dL (8.4-10.2); Carbon Dioxide 31 mmol/L (22-32); Chloride 106 mmol/L (98-107); Estimated Glomerular Filt Rate 19.4 mL/min (>60); Globulin 2.9 g/dL (1.7-4.1); Glucose 92 mg/dL (80-110); HEMOLYSIS < 15 (0-50); Sodium 140 mmol/L (137-145); Total Protein 6.8 g/dL (6.3-8.2)
[2020-03-19 13:50] LABS: Erythrocyte Sedimentation Rate 14 MM/HR (0-20)
[2020-03-19 13:51] LABS: C-Reactive Protein Quant < 0.5 mg/dL (<1.0)
== END ==
PROVIDERS: PCP Internal Medicine; Referring Provider Nurse Practitioner; Visit Provider Nurse Practitioner
DX: Z79.899 Other long term (current) drug therapy (principal); M35.00 Sjogren syndrome, unspecified
CPT/HCPCS: 36415; 80053; 85025; 85651; 86140

== ENCOUNTER → 2020-04-23 13:49 | Outpatient (CLI) | payer MEDICARE, OTHER, SELFPAY ==
[2020-01-16 09:25] VITALS: BMI 20.2
[2020-04-23 14:43] LABS: BUN Creatinine Ratio 18.6 (6-22); Blood Urea Nitrogen 47 mg/dL (7-17); Calcium 9.4 mg/dL (8.4-10.2); Carbon Dioxide 30 mmol/L (22-32); Chloride 104 mmol/L (98-107); Estimated Glomerular Filt Rate 18.2 mL/min (>60); Glucose 100 mg/dL (80-110); HEMOLYSIS < 15 (0-50); Sodium 137 mmol/L (137-145)
== END ==
PROVIDERS: PCP Internal Medicine; Referring Provider Internal Medicine Nephrology; Visit Provider Internal Medicine Nephrology
DX: N05.9 Unspecified nephritic syndrome with unspecified morphologic changes (principal)
CPT/HCPCS: 36415; 80048

== ENCOUNTER → 2020-04-25 08:54 | Outpatient (CLI) | payer MEDICARE, OTHER, SELFPAY ==
[2020-01-16 09:25] VITALS: BMI 20.2
[2020-04-25] MEDS: COVID-19 VACC #1, MRNA(MOD) 100 MCG/0.5 ML VIAL IM (09:02)
== END ==
PROVIDERS: PCP Internal Medicine; Visit Provider Internal Medicine
DX: Z23 Encounter for immunization (principal)
CPT/HCPCS: 0011A; 91301

== ENCOUNTER → 2020-05-08 13:09 | Outpatient (ROUT) | payer MEDICARE, OTHER, SELFPAY ==
[2020-01-16 09:25] VITALS: BMI 20.2
[2020-05-08 19:17] LABS: Add Manual Diff / Slide Review NO; Basophils Absolute Auto 0 /uL (0-100); Basophils Percent Auto 0.6 % (0-2); Eosinophils Absolute Auto 100 /uL (0-450); Eosinophils Percent Auto 2.5 % (2-4); Hematocrit 34.4 % (36-46); Hemoglobin 11.5 g/dL (12.0-16.0); Lymphocytes Absolute Auto 1300 /uL (1100-4500); Mean Corpuscular HGB Conc 33.4 % (30-36); Mean Corpuscular Hemoglobin 33.8 PG (26-34); Mean Corpuscular Volume 101.3 fL (80-100); Monocytes Absolute Auto 400 /uL (0-900); Monocytes Percent Auto 10.6 % (3-14); Neutrophils Absolute Auto 2200 /uL (1500-7000); Neutrophils Percent Auto 53.3 % (50-75); Platelet Count 207 X10^3/uL (150-400); Red Blood Cell Count 3.39 X10^6/uL (4.0-5.2); Red Cell Distribution Width 12.6 % (11.6-14.8)
[2020-05-08 19:25] LABS: BUN Creatinine Ratio 17.5 (6-22); Blood Urea Nitrogen 37 mg/dL (7-17); Calcium 9.5 mg/dL (8.4-10.2); Carbon Dioxide 25 mmol/L (22-32); Chloride 112 mmol/L (98-107); Estimated Glomerular Filt Rate 22.4 mL/min (>60); Glucose 77 mg/dL (80-110); HEMOLYSIS < 15 (0-50); Magnesium 2.1 mg/dL (1.6-2.3); Potassium 4.9 mmol/L (3.4-5.1); Sodium 141 mmol/L (137-145)
[2020-05-09 06:28] LABS: Calcium 9.5 mg/dL (8.7-10.3); Parathyroid Hormone, Intact 55 pg/mL (15-65)
== END ==
PROVIDERS: PCP Internal Medicine; Visit Provider Internal Medicine
DX: N18.4 Chronic kidney disease, stage 4 (severe) (principal)
CPT/HCPCS: 80048; 82310; 83735; 83970; 84100; 85025

== ENCOUNTER → 2020-05-22 10:09 | Outpatient (CLI) | payer MEDICARE, OTHER, SELFPAY ==
[2020-01-16 09:25] VITALS: BMI 20.2
[2020-05-22] MEDS: COVID-19 VACC #2, MRNA(MOD) 100 MCG/0.5 ML VIAL IM (10:16)
== END ==
PROVIDERS: PCP Internal Medicine; Visit Provider Internal Medicine
DX: Z23 Encounter for immunization (principal)
CPT/HCPCS: 0012A; 91301

== ENCOUNTER → 2020-06-27 10:24 | Outpatient (CLI) | payer MEDICARE, OTHER, SELFPAY ==
[2020-01-16 09:25] VITALS: BMI 20.2
[2020-06-27 11:20] LABS: Calcium 9.4 mg/dL (8.4-10.2)
== END ==
PROVIDERS: PCP Internal Medicine; Referring Provider Internal Medicine Nephrology; Visit Provider Internal Medicine Nephrology
DX: E83.50 Unspecified disorder of calcium metabolism (principal)
CPT/HCPCS: 36415; 82310

== ENCOUNTER → 2020-07-21 15:54 | Outpatient (CLI) | payer MEDICARE, OTHER, SELFPAY ==
[2020-01-16 09:25] VITALS: BMI 20.2
--- NOTE | 2020-07-21 16:01 | DI.RAD.S_ITS ---
PROCEDURE: XR LUMBAR SPINE 2-3V INDICATIONS: LOW BACK PAIN TECHNIQUE: 2 views of the lumbar spine were acquired. COMPARISON: None. FINDINGS: Bones: No acute fracture identified. Multilevel spondylosis/endplate changes. Diffuse facet arthropathy. Scoliosis incidentally noted. Severe narrowing of the L2-L3 disc space. Moderate narrowing of the L1-L2 disc space. Soft tissues: Overlying bowel gas pattern is normal. No suspicious soft tissue calcifications. IMPRESSION: Multilevel lumbar spondylosis, most pronounced at L1-L2 and L2-L3 as above. Scoliosis Diffuse facet arthropathy Dictated by: Dwayne Houston M.D. on 07/21/2020 at 16:43 Approved by: Dwayne Houston M.D. on 07/21/2020 at 16:45
== END ==
PROVIDERS: PCP Internal Medicine; Referring Provider Internal Medicine; Visit Provider Internal Medicine
DX: M54.5 Low back pain (principal); M47.816 Spondylosis without myelopathy or radiculopathy, lumbar region; M41.9 Scoliosis, unspecified
CPT/HCPCS: 72100

== ENCOUNTER → 2020-08-08 11:06 | Outpatient (CLI) | payer MEDICARE, OTHER, SELFPAY ==
[2020-01-16 09:25] VITALS: BMI 20.2
[2020-08-08 11:57] LABS: Add Manual Diff / Slide Review NO; Basophils Absolute Auto 0 /uL (0-100); Basophils Percent Auto 0.6 % (0-2); Eosinophils Absolute Auto 200 /uL (0-450); Eosinophils Percent Auto 3.6 % (2-4); Hematocrit 35.6 % (36-46); Lymphocytes Absolute Auto 1700 /uL (1100-4500); Lymphocytes Percent Auto 35.1 % (25-40); Mean Corpuscular HGB Conc 33.6 % (30-36); Mean Corpuscular Hemoglobin 33.9 PG (26-34); Mean Corpuscular Volume 101.1 fL (80-100); Monocytes Absolute Auto 400 /uL (0-900); Monocytes Percent Auto 8.8 % (3-14); Neutrophils Absolute Auto 2600 /uL (1500-7000); Neutrophils Percent Auto 51.9 % (50-75); Platelet Count 263 X10^3/uL (150-400); Red Blood Cell Count 3.52 X10^6/uL (4.0-5.2); Red Cell Distribution Width 13.1 % (11.6-14.8); White Blood Cell Count 4.9 X10^3/uL (4.5-11.0)
[2020-08-08 12:16] LABS: Alanine Aminotransferase 25 IU/L (<35); Albumin 4.2 g/dL (3.5-5.0); Albumin Globulin Ratio 1.3 (1.0-2.8); Alkaline Phosphatase 96 U/L (38-126); Aspartate Aminotransferase 41 IU/L (14-36); BUN Creatinine Ratio 18.1 (6-22); Bilirubin Total 0.3 mg/dL (0.2-1.3); Blood Urea Nitrogen 42 mg/dL (7-17); Calcium 9.6 mg/dL (8.4-10.2); Carbon Dioxide 27 mmol/L (22-32); Chloride 107 mmol/L (98-107); Estimated Glomerular Filt Rate 20.1 mL/min (>60); Globulin 3.2 g/dL (1.7-4.1); Glucose 74 mg/dL (80-110); HEMOLYSIS < 15 (0-50); Potassium 5.2 mmol/L (3.4-5.1); Sodium 141 mmol/L (137-145); Total Protein 7.4 g/dL (6.3-8.2)
== END ==
PROVIDERS: PCP Internal Medicine; Referring Provider Nurse Practitioner; Visit Provider Nurse Practitioner
DX: M35.00 Sjogren syndrome, unspecified (principal); D72.819 Decreased white blood cell count, unspecified
CPT/HCPCS: 36415; 80053; 85025

== ENCOUNTER → 2020-08-27 13:50 | Outpatient (CLI) | payer MEDICARE, OTHER, SELFPAY ==
[2020-01-16 09:25] VITALS: BMI 20.2
[2020-08-27 14:35] LABS: COVID19 -Nasal RAPID Negative (Negative)
== END ==
PROVIDERS: PCP Internal Medicine; Referring Provider Internal Medicine; Visit Provider Internal Medicine
DX: Z20.822 Contact with and (suspected) exposure to COVID-19 (principal); Z01.812 Encounter for preprocedural laboratory examination
CPT/HCPCS: 87635; C9803

== ENCOUNTER → 2020-08-27 13:53 | Outpatient (CLI) | payer MEDICARE, OTHER, SELFPAY ==
[2020-01-16 09:25] VITALS: BMI 20.2
--- NOTE | 2020-09-03 11:37 | PM.PFT.1 ---
Pulmonary Function Test Referral & Results Date Patient Seen: 08/27/20 Requesting provider: Steve Tellez Results: The spirometry demonstrates an FVC of 2.26 L which is 103% of predicted. The FEV1 was measured at 1.81 L which is 112% of predicted. The FEV1/FVC ratio was 80 which is 108% of predicted. Following the administration of bronchodilator there was no appreciable change to above normal numbers. Lung volumes show an SVC of 2.36 L which is 101% of predicted. The diffusing capacity was measured at 13.83 which is 60% of predicted. No hemoglobin value was provided, so no correction for potential anemia could be made, if appropriate. The maximum voluntary ventilation was severely reduced Interpretation: This study demonstrates normal spirometry. Diffusing capacity is minimally reduced suggesting element of disease at the capillary alveolar level. Maximum voluntary ventilation is severely reduced suggesting significant neuromuscular disease in the absence of other pulmonary function abnormalities. Compared to PFTs performed in September 2017, spirometry was normal on previous study as it is with current study. Diffusing capacity is essentially unchanged. Previously maximum voluntary ventilation was much better than on current study. Clinical correlation suggested
== END ==
PROVIDERS: PCP Internal Medicine; Referring Provider Internal Medicine; Visit Provider Internal Medicine
DX: R06.02 Shortness of breath (principal); R06.00 Dyspnea, unspecified; J98.8 Other specified respiratory disorders; Z20.822 Contact with and (suspected) exposure to COVID-19
CPT/HCPCS: 87635; 94060; 94726; 94729; C9803

== ENCOUNTER → 2020-11-19 13:40 | Outpatient (CLI) | payer MEDICARE, OTHER, SELFPAY ==
[2020-01-16 09:25] VITALS: BMI 20.2
[2020-11-19 14:42] LABS: Hematocrit 37.8 % (36-46); Hemoglobin 12.5 g/dL (12.0-16.0); Mean Corpuscular HGB Conc 33.2 % (30-36); Mean Corpuscular Hemoglobin 33.5 PG (26-34); Mean Corpuscular Volume 100.8 fL (80-100); Platelet Count 239 X10^3/uL (150-400); Red Blood Cell Count 3.75 X10^6/uL (4.0-5.2); Red Cell Distribution Width 12.8 % (11.6-14.8); White Blood Cell Count 5.2 X10^3/uL (4.5-11.0)
[2020-11-19 15:08] LABS: BUN Creatinine Ratio 20.2 (6-22); Blood Urea Nitrogen 49 mg/dL (7-17); Carbon Dioxide 28 mmol/L (22-32); Chloride 108 mmol/L (98-107); Estimated Glomerular Filt Rate 19.2 mL/min (>60); Glucose 92 mg/dL (80-110); HEMOLYSIS < 15 (0-50); Potassium 5.1 mmol/L (3.4-5.1); Sodium 142 mmol/L (137-145)
== END ==
PROVIDERS: PCP Internal Medicine; Referring Provider Internal Medicine Nephrology; Visit Provider Internal Medicine Nephrology
DX: N05.9 Unspecified nephritic syndrome with unspecified morphologic changes (principal); D63.1 Anemia in chronic kidney disease; D70.9 Neutropenia, unspecified
CPT/HCPCS: 36415; 80048; 85027

== ENCOUNTER → 2021-01-20 12:45 | Outpatient (CLI) | payer MEDICARE, OTHER, SELFPAY ==
[2020-01-16 09:25] VITALS: BMI 20.2
[2021-01-20 14:42] LABS: BUN Creatinine Ratio 15.9 (6-22); Blood Urea Nitrogen 43 mg/dL (7-17); Carbon Dioxide 30 mmol/L (22-32); Chloride 102 mmol/L (98-107); Estimated Glomerular Filt Rate 16.9 mL/min (>60); Glucose 74 mg/dL (80-110); HEMOLYSIS < 15 (0-50); Potassium 4.7 mmol/L (3.4-5.1); Sodium 141 mmol/L (137-145)
[2021-01-20 14:48] LABS: NT-proBNP (BNP-Adult 18+) 3150 pg/mL (<450)
[2021-01-20 15:10] LABS: Creatinine Urine Random 24.1 mg/dL; Protein (Total) Urine Random 12 mg/dL (0-12); Protein Creatinine Ratio Urine 0.49 GRAM/24H
== END ==
PROVIDERS: PCP Internal Medicine; Referring Provider Internal Medicine Nephrology; Visit Provider Internal Medicine Nephrology
DX: N05.9 Unspecified nephritic syndrome with unspecified morphologic changes (principal); I50.32 Chronic diastolic (congestive) heart failure; R80.9 Proteinuria, unspecified
CPT/HCPCS: 36415; 80048; 82570; 83880; 84156

== ENCOUNTER → 2021-04-06 12:20 | Outpatient (CLI) | payer MEDICARE, OTHER, SELFPAY ==
[2020-01-16 09:25] VITALS: BMI 20.2
[2021-04-06 13:28] LABS: BUN Creatinine Ratio 19.4 (6-22); Blood Urea Nitrogen 44 mg/dL (7-17); Calcium 9.3 mg/dL (8.4-10.2); Carbon Dioxide 24 mmol/L (22-32); Chloride 112 mmol/L (98-107); Estimated Glomerular Filt Rate 20.7 mL/min (>60); Glucose 121 mg/dL (80-110); HEMOLYSIS < 15 (0-50); Sodium 142 mmol/L (137-145)
[2021-04-06 13:47] LABS: Potassium 5.6 mmol/L (3.4-5.1)
== END ==
PROVIDERS: PCP Internal Medicine; Referring Provider Internal Medicine; Visit Provider Internal Medicine
DX: R06.02 Shortness of breath (principal)
CPT/HCPCS: 36415; 80048